=== PATIENT | female | born 1990 | race Caucasian/White ===

== ENCOUNTER 2022-01-16 14:56 | Outpatient (CLI) | payer BC, SELFPAY ==
[2022-01-16 17:14] LABS: HCG Qualitative Serum* Negative (Negative)
[2022-01-18 17:27] LABS: Follicle Stimulating Hormone 7.1 IU/L
[2022-01-19 19:02] LABS: Estradiol Premenol Female 62 pg/mL
[2022-01-19 23:41] LABS: Prolactin 5.8 ng/mL (2.8-29.2)
== END 2022-01-16 14:57 | disposition home or self-care (01) ==
PROVIDERS: PCP Family Medicine; Visit Provider Registered Nurse
DX: N91.1 Secondary amenorrhea (principal)
CPT/HCPCS: 82670; 83001; 84146; 84443; 84703

== ENCOUNTER 2022-02-12 09:16 | Outpatient (CLI) | payer BC, SELFPAY ==
[2022-02-13 23:11] LABS: Insulin, Fasting 20 uIU/mL (3-25)
== END 2022-02-12 09:17 | disposition home or self-care (01) ==
LOC: NFLDREF 09:19
PROVIDERS: PCP Family Medicine; Visit Provider Registered Nurse
DX: E28.2 Polycystic ovarian syndrome (principal)
CPT/HCPCS: 83525

== ENCOUNTER 2022-04-30 09:37 | Outpatient (CLI) | payer BC, SELFPAY ==
[2022-04-30 19:42] LABS: Chlamydia DNA Amplified* NOT DETECTED (No Detected); GC DNA Amplified* NOT DETECTED (No Detected)
== END 2022-04-30 09:38 | disposition home or self-care (01) ==
PROVIDERS: PCP Family Medicine; Visit Provider Physician Assistant
DX: R39.9 Unspecified symptoms and signs involving the genitourinary system (principal); N89.8 Other specified noninflammatory disorders of vagina
CPT/HCPCS: 87086; 87491; 87591

== ENCOUNTER 2022-09-10 09:49 | Outpatient (CLI) | payer OTHER, SELFPAY | END 2022-09-10 09:50 | disposition home or self-care (01) | LOC: NFLDREF 09:51 | PROVIDERS: PCP Family Medicine; Visit Provider Family Medicine | DX: R10.9 Unspecified abdominal pain (principal); E66.01 Morbid (severe) obesity due to excess calories | CPT/HCPCS: 80053 ==

== ENCOUNTER 2022-09-23 13:01 | Emergency (ER) | payer OTHER, SELFPAY ==
[2022-09-23 13:04] VITALS: BP 128/89; PULSE 65; RESP 16; TEMP 36.1; O2SAT 98; BMI 52.0
--- NOTE | 2022-09-23 13:22 | CRLHL7_ITS ---
For Patients: As a result of the Cures Act, medical imaging exams and procedure reports are released immediately into your electronic medical record. You may view this report before your referring provider. If you have questions, please contact your health care provider. INDICATION: Right knee pain. Trauma. TECHNIQUE: Three views of the right knee. FINDINGS: Negative. No fracture, dislocation, erosion, or intrinsic lesion. No effusion. IMPRESSION: Negative three view right knee. Dictated by Song Swartz MD @ 09/23/2022 2:37:23 PM (Electronically Signed)
--- NOTE | 2022-09-23 13:23 | ED_ITS ---
HPI - Extremity Injury (Lower) General Chief Complaint: Extremity Pain/Injury, Lower Stated Complaint: R knee pain Time Seen by Provider: 09/23/22 13:12 History of Present Illness HPI Narrative: This 32-year-old female comes in reporting pain in her right knee. She states she was playing basketball yesterday and as she was jumping up for a lay up she felt pain in her right knee while she was mid air. She states that she fell but did not injure herself from the fall. She did get up and is able to ambulate on this knee. She states that she has pain in the supra patella area. She does not report any catching or locking or indicate any signs of ligament instability. She did apply ice a couple times. She states that she did not sleep so well last night because of discomfort. Related Data Home Medications Medication Instructions Recorded Confirmed lisdexamfetamine 30 mg capsule 30 mg PO QAM 01/16/22 09/23/22 (Vyvanse) Allergies Allergy/AdvReac Type Severity Reaction Status Date / Time penicillin V Allergy Mild Hives Verified 09/07/22 14:20 Review of Systems Status of ROS: Reports: 10 or more systems reviewed and unremarkable except as noted in History and below Narrative: Constitutional: No fevers, no weight gain or loss. Eyes: No discharge. No vision changes. HENT: No congestion, no sore throat, no ear pain. Cardiovascular: No chest pain, no palpitations. Respiratory: No shortness of breath, no wheezes, no cough. Gastrointestinal: No abdominal pain, no vomiting, no diarrhea. Genitourinary: No dysuria, no hematuria. Musculoskeletal: Normal range of motion. Right knee pain as described above. Skin: No rashes, no pruritis. Neurological: No dizziness, weakness, sensory change, speech change. Endo/Heme/Allergies: No bruising or bleeding. No polydipsia. Pysch: no suicidality, no anxiety, no insomnia. All other systems reviewed and are negative. [facility] Medical History (Updated 09/23/22 @ 14:38 by Kirt Garcia MD) Abdominal pain ?R10.9 - Unspecified abdominal pain (ICD-10) Insomnia ?G47.00 - Insomnia, unspecified (ICD-10) History of pre-eclampsia (2018) ?Z87.59 - Personal history of other complications of , childbirth and the puerperium (ICD-10) Surgical History History of tubal ligation (2019) ?Z98.51 - Tubal ligation status (ICD-10) History of 2 sections ?Z98.891 - History of uterine scar from previous surgery (ICD-10) Family History Maternal Grandfather Coronary artery disease Aunt Breast cancer Paternal Grandmother Diabetes Father Liver disease Mother Mental health disorder Maternal Grandmother Mental health disorder Other Thyroid disease Social History Smoking Status: Never smoker How often do you have a drink containing alcohol: never AUDIT-C Alcohol total score: 0 Non-prescribed substance use: denies use Exam Narrative: Exam Narrative: Constitutional: Well-developed, well-nourished, no acute distress. HEENT: Normocephalic, atraumatic. Neck: Normal range of motion. Nontender. Supple. Heart: Regular. No murmurs. Normal rate. Intact distal pulses. Lungs: Clear to auscultation. No chest discomfort. No wheezes, rhonchi, or rales. Abdomen: Normal bowel sounds. Nontender. No rebound tenderness. Genitalia: Deferred. Back: No midline tenderness. Normal range of motion. Extremities: Normal range of motion. The right knee has diffuse tenderness which is more localized above the patella. There is no joint effusion or sign of deformity. Range of motion is intact without pain. Ligament exam is also showing no instability. Skin: Intact. No rash. Warm. No erythema or pallor. Neurologic: No altered sensation. No weakness. Alert and oriented. Psychiatric: No suicidality. No anxiety or depression. No insomnia. Nursing notes and vitals signs are reviewed. Const: Vital Signs, click to edit/add: Vital Signs - 24 hr 09/23/22 13:04 Temperature 96.9 F L Pulse Rate [Pulse Oximeter] 65 Respiratory Rate 16 Blood Pressure [Le ft Upper Arm] 128/89 Pulse Oximetry 98 Oxygen Delivery Me thod Room Air Course Vital Signs Vital signs: Initial Vital Signs Temperature 96.9 F L 09/23/22 13:04 Temperature Source Temporal Artery Scan 09/23/22 13:04 Pulse Rate 65 09/23/22 13:04 Respiratory Rate 16 09/23/22 13:04 Blood Pressure 128/89 09/23/22 13:04 Blood Pressure Mean 102 09/23/22 13:04 Blood Pressure Position Sitting 09/23/22 13:04 Pulse Oximetry 98 09/23/22 13:04 Oxygen Delivery Method Room Air 09/23/22 13:04 Vital Signs Temperature 96.9 F L 09/23/22 13:04 Pulse Rate 65 09/23/22 13:04 Respiratory Rate 16 09/23/22 13:04 Blood Pressure 128/89 09/23/22 13:04 Pulse Oximetry 98 09/23/22 13:04 Oxygen Delivery Method Room Air 09/23/22 13:04 Temperature 96.9 F L 09/23/22 13:04 Pulse Rate 65 09/23/22 13:04 Respiratory Rate 16 09/23/22 13:04 Blood Pressure 128/89 09/23/22 13:04 Pulse Oximetry 98 09/23/22 13:04 Oxygen Delivery Method Room Air 09/23/22 13:04 MDM - Extremity Injury (Lower) MDM Narrative Medical decision making narrative: This patient comes in with knee pain as described above. She is ambulatory but IA stated that an x-ray can give further reassurance that there is not some visible finding. An x-ray was obtained and returns with normal results by my review. Radiology report is pending. The patient may be miss understood the plan but she left after having her x-ray done. She is able to ambulate without much difficulty. She did not get discharge materials or instructions. Discharge Plan Discharge Clinical Impression: Acute knee pain Patient Disposition: Home, Self-Care Additional Instructions: Use [id number] medicines as needed and directed. Increase activity as tolerated. Follow up with MD or orthopedic clinic if not improving or worsening. Prescriptions: No Action Vyvanse 30 mg capsule 30 mg PO QAM Follow Up/Referrals: Mahsa Whyte MD [Staff Physician] - Stand Alone Forms: [employer] Info Instructions
--- NOTE | 2022-09-23 14:32 | ED.NURSE ---
pt left without telling anyone. xray results still pending
== END 2022-09-23 14:44 | disposition home or self-care (01) ==
PROVIDERS: Emergency Provider Emergency Medicine Emergency Medical Services
DX: M25.561 Pain in right knee (principal); Y93.67 Activity, basketball
CPT/HCPCS: 73562; 99283; 99284

== ENCOUNTER 2023-03-16 17:02 | Outpatient (CLI) | payer OTHER, SELFPAY ==
--- NOTE | 2023-03-16 17:30 | CRLHL7_ITS ---
For Patients: As a result of the Century Cures Act, medical imaging exams and procedure reports are released immediately into your electronic medical record. You may view this report before your referring provider. If you have questions, please contact your health care provider. HISTORY: Right knee pain after falling injury. History of surgery 15 years ago. TECHNIQUE: Routine knee protocol. FINDINGS: There are no previous MR studies for comparison. Medial compartment: Medial meniscus: There is a stated history of previous meniscus surgery. The appearance of the posterior horn and adjacent body of the medial meniscus is abnormal with prominent increased signal intensity extending through the peripheral substance vertically. These findings should be considered consistent with tearing until proven otherwise. The anterior horn is intact. Articular cartilage: Mild diffuse grade 2 chondromalacia is present. Lateral compartment: Lateral meniscus: The lateral meniscus is intact without evidence for tearing. Articular cartilage: The articular cartilage surfaces are smooth and normally maintained. Patellofemoral compartment: The articular cartilage surfaces are smooth and normally maintained. Ligaments: There is complete disruption of the anterior cruciate ligament. The posterior cruciate, medial collateral and lateral collateral ligaments are intact. Extensor mechanism: The quadriceps and patellar tendons are intact. Bones and soft tissues: No findings for transcortical or osteochondral fracture. No joint effusion or loose body is noted. The popliteus muscle belly and tendon is well as the hamstring tendons and iliotibial band are intact. IMPRESSION: 1. Complete ACL disruption. 2. Abnormal appearance to the posterior horn and adjacent body of the medial meniscus. Given the there is stated history of previous meniscal surgery, these findings probably represent a new or recurrent tearing until proven otherwise. Dictated by Stevenson Ching MD @ 03/17/2023 2:01:11 PM (Electronically Signed)
== END 2023-03-16 17:03 | disposition home or self-care (01) ==
LOC: MRI 17:02
PROVIDERS: PCP Nurse Practitioner Family; Visit Provider Nurse Practitioner Family
DX: M25.561 Pain in right knee (principal); S83.104A Unspecified dislocation of right knee, initial encounter
CPT/HCPCS: 73721

== ENCOUNTER 2023-04-09 13:36 | Outpatient (CLI) | payer OTHER, SELFPAY | END 2023-04-09 13:37 | disposition home or self-care (01) | PROVIDERS: PCP Nurse Practitioner Family; Visit Provider Nurse Practitioner Family | DX: Z01.818 Encounter for other preprocedural examination (principal) | CPT/HCPCS: 80053; 85025 ==

== ENCOUNTER 2023-04-16 13:12 | Outpatient (CLI) | payer OTHER, SELFPAY | END 2023-04-16 13:13 | disposition home or self-care (01) | LOC: NFLDUCREF 13:14 | PROVIDERS: PCP Nurse Practitioner Family; Visit Provider Nurse Practitioner | DX: R06.02 Shortness of breath (principal) | CPT/HCPCS: 83880; 84484 ==

== ENCOUNTER 2023-05-07 06:15 | Day surgery (SDC) | payer OTHER, SELFPAY ==
[2023-05-07] VITALS (17 sets, daily range): BP systolic 117–138; BP diastolic 57–107; PULSE 57–89; RESP 12–16; TEMP 36.5–36.6; O2SAT 92–100; BMI 49.6
[2023-05-07 06:31] LABS: Ur HCG Qualitative* Negative (Negative)
[2023-05-07] MEDS: LACTATED RINGERS 1000 ML 1,000 ML 100 ML IV (07:00)
[2023-05-07] MEDS: SODIUM CHLORIDE 0.9 % (FLUSH) 10 ML SYRINGE IVF (07:00)
--- NOTE | 2023-05-07 07:25 | W.PM.H&PU ---
History & Physical Update History & Physical Update H&P Reviewed and patient assessed: No changes noted
[2023-05-07] MEDS: fentaNYL 100 MCG/2 ML inj IVP (07:26)
--- NOTE | 2023-05-07 07:26 | P.ORPRC_ITS ---
Procedure Note Date of procedure: 05/07/23 Procedure: PREOPERATIVE DIAGNOSIS: 1. Right knee ACL tear 2. Right knee medial meniscus tear POSTOPERATIVE DIAGNOSIS: 1. Right knee ACL tear 2. Right knee medial meniscus tear PROCEDURE: 1. Right knee arthroscopic assisted ACL reconstruction with quadlink allograft 2. Right knee arthroscopic medial meniscus repair SURGEON: Juan Carlos Encinas M.D. [employer] APPLICATION DEVELOPER: Sean LOZA & Kendy Kilgore P.A.-C. Assistance were critical for this case to aid in patient positioning, knee manipulation, instrument exchange, and closure. ANESTHESIA: General plus regional block EBL: 10 mL TOURNIQUET: Not applicable IMPLANTS: Arthrex femoral tight rope button, Arthrex tibial ABS button; backup tibial fixation with a Arthrex 3.5 mm PEEK SwiveLock suture anchor. Arthrex FiberStitch implant x2 COMPLICATIONS: None INDICATIONS: 33-year-old female who sustained an injury to their right knee, which resulted in pain, swelling, and instability. MRI was obtained and confirmed tear of the anterior cruciate ligament with probable medial meniscus tear. Surgery was subsequently recommended to provide knee stability and address the meniscus tear. Prior to surgery, the risks and benefits of procedure, as well as expected recovery time, were discussed with patient, all questions were answered, and informed consent was obtained. FINDINGS: Examination under anesthesia revealed a grade 2B Elodia's with positive pivot shift. Knee was stable to varus and valgus stress at 0 and 30?. Posterior drawer was negative. The diagnostic arthroscopy showed complete anterior cruciate ligament disruption. There is also a vertical tear in the red red zone of the posterior horn of the medial meniscus. Lateral meniscus was intact. PCL was intact. Normal appearing cartilage in the medial, lateral, patellofemoral compartments.. DESCRIPTION OF PROCEDURE: Patient was seen preoperatively, and operative site was marked. Regional block was then performed by anesthesia staff. Patient was then brought to the operating room and placed in supine position on the OR table. Patient was given 3 g IV Ancef preoperatively for prophylaxis. The operative extremity was placed in the leg gil, and was then prepped and draped in the appropriate sterile fashion using ChloraPrep. A surgical time-out was performed confirming patient identity, surgical site, and surgical procedure. Anterolateral and anteromedial portals were injected with 1% lidocaine with epinephrine. Anterolateral portal was established. Anterior medial portal was then established after localization with a spinal needle. Diagnostic arthroscopy was performed with findings as noted above. Following the diagnostic arthroscopy, attention was directed to repair of the medial meniscus. Meniscus tear was prepped using the meniscal rasp. Meniscus repair was then performed using all inside technique using 2 fiber stitch implants. After the fibrous tissue implants had been deployed intention remnant sutures were cut removed. After 2 implants had been placed meniscus was probed and confirmed to be reduced and stable. Attention was then turned to the reconstruction of the ACL. The graft had been thawing on the back table inside the package in warm saline. Once this was properly thawed, it was prepared with the passing sutures and the femoral tight rope button. It was then placed on tension, and sized to 10 mm on the femoral side and 10 mm on the tibial side. While the graft was being prepared, the remaining ACL stump was debrided with a combination of shaver and basket forceps. Next, a small stab incision was made over the anterior lateral distal femur to allow for placement of the femoral guide. Interosseous length measured 37 mm, and the femoral tunnel was drilled in a retrograde fashion using the 10 mm FlipCutter to a depth of 30 mm. A small incision was then made over the anterior medial proximal tibia to allow for placement of the tibial guide. Tibial guide set at 55? was then placed in the appropriate position on the ti bial footprint. The tibial tunnel was then drilled in anatomic position using the 10 mm flip cutter to a depth of 30 mm. After drilling both tunnels, passing sutures were placed into the joint. Bone debris was then removed using the arthroscopic shaver. Both tunnels were visualized and confirmed to be in ideal position in the center of their respective footprints. There was a 1-2 mm back wall of the femoral tunnel. After preparing the graft and drilling tunnels, the femoral button passed into the femoral tunnel was flipped under direct visualization on the lateral cortex of the femur. The graft was passed, and approximately 15 mm of graft was seated into the femoral tunnel. Sutures were then passed through the tibial tunnel, and the graft was seated into the tibial tunnel. Knee was then brought out to full extension and femoral button was tensioned bringing 20 mm of graft into the femoral tunnel. The tibial ABS button was then secured and tensioned with the knee in full extension. The knee was then cycled multiple times, and both buttons were retentioned with knee in extension. The graft was visualized and noted be in anatomic position. Probing of the graft confirmed that it was taut and stable. There was no impingement on the ACL or femoral condyles. The knee could be brought out to full extension without graft impingement. A Elodia's test was performed and found to be stable grade 1A. Tibial sutures were tied over the button and internal brace sutures were then secured into a 3.5 mm peek SwiveLock suture anchor. Remnant sutures were cut and removed. Wound closure was performed with 3-0 Vicryl and 3-0 Monocryl to close the subcutaneous and subcuticular layers, followed by application of Dermabond. Sterile dressings were applied, and the T scope hinged knee brace was applied. The patient was awoken from anesthesia and transferred to the PACU in stable condition. PLAN: 1. Weight bear as tolerated with hinged knee brace. Keep brace locked in extension when weight-bearing until quad function returns. 2. Crutches as needed for assistance with ambulation. 3 Ice or cryo cuff and elevation for pain and swelling. 4. Acetaminophen and/or ibuprofen, and oxycodone for pain as needed. 5. Knee range of motion and quad sets/straight leg raise regularly 6. Start formal physical therapy within 1 week per the ACL reconstruction protocol. 4. Follow up in Orthopedic Clinic in 1-2 weeks for a wound check.
[2023-05-07] MEDS: MIDAZOLAM HCL 1 MG/ML inj IVP (07:27)
--- NOTE | 2023-05-07 07:35 | SUR.PREOP ---
TIME?OUT:?0727 PT/RN/MDA?VERIFICATION?OF?SURGICAL?SITE,?PROCEDURE,?AND?CONSENT OBTAINED?PRIOR?TO?INVASIVE?PROCEDURE.
[2023-05-07] MEDS: BUPIVACAINE 0.25 %/EPI 1:200K 30 ml INJECTION (08:06)
--- NOTE | 2023-05-07 10:11 | W.ANESCHARGE ---
Anesthesia Charges Start Date/Time Anesthesia Start Date: 05/07/23 Anesthesia Start Time: 07:40 Stop Date/Time Anesthesia Stop Date: 05/07/23 Anesthesia Stop Time: 10:06
--- NOTE | 2023-05-07 10:41 | P.NB_ITS ---
Nerve Block Nerve Block Time Seen by Provider: 07:25 Date Seen: 05/07/23 Type of block requested by surgeon for post-operative analgesia: femoral Side: right Time out performed: Yes Verification of patient name: Yes Verification of date of : Yes Site marking: site marked Name of person performing procedure: Catracho Farrell Continuous monitoring Was continuous monitoring of O2 sat, B/P, air sampling and monitoring, recorded every 15 minutes?: Yes Procedure Checklist: sterile prep, needles and gloves Ultrasound guided. Images saved: Yes Medications given in 5ml increments after negative aspiration: Ropivicaine %: 0.5 mL: 20 Needle gauge: 20 Decadron (mg): 10 Precedex (mcg): 25 Patient tolerated procedure well: Yes Additional comments: Injected in 5 ml increments after negative aspiration Block Charges Block Charge (with Pro Fee): Femoral Nerve Use of Ultrasound Machine for Block: Yes- US Guidance/pain block
--- NOTE | 2023-05-07 10:42 | W.PM.NB ---
Nerve Block Nerve Block Time Seen by Provider: 07:25 Date Seen: 05/07/23 Type of block requested by surgeon for post-operative analgesia: geniculars Side: right Time out performed: Yes Verification of patient name: Yes Verification of date of : Yes Site marking: site marked Name of person performing procedure: Catracho Farrell Continuous monitoring Was continuous monitoring of O2 sat, B/P, post framer, recorded every 15 minutes?: Yes Procedure Checklist: sterile prep, needles and gloves Ultrasound guided. Images saved: No Medications given in 5ml increments after negative aspiration: Ropivicaine %: 0.5 mL: 12 Needle gauge: 25 Patient tolerated procedure well: Yes Additional comments: Injected in 4ml increments after negative aspiration Block Charges Block Charge (with Pro Fee): Genicular Nerve Block Use of Ultrasound Machine for Block: No
== END 2023-05-07 12:25 | disposition home or self-care (01) ==
PROVIDERS: Anesthesiology; PCP Nurse Practitioner Family; Visit Provider Orthopaedic Surgery
PROC: (CPT 27428; principal; 2023-05-07 07:15)
DX: S83.511A Sprain of anterior cruciate ligament of right knee, initial encounter (principal); S83.241A Other tear of medial meniscus, current injury, right knee, initial encounter; G89.18 Other acute postprocedural pain
CPT/HCPCS: 29888; 29881; 01320; 64447; 64454; 76942; 81025; 97116; 97161; C1713; J0330; J1100; J1630; J1885; J2250; J2405; J2704; J2795; J3010; J3490; J7120; L1833

== ENCOUNTER 2023-06-10 19:00 | Emergency (ER) | payer OTHER, SELFPAY ==
[2023-06-10 19:03] VITALS: BP 128/81; PULSE 69; RESP 18; TEMP 36.4; O2SAT 100; BMI 48.4
--- NOTE | 2023-06-10 19:24 | XR_ITS ---
Patient: REINA MUNOZ Facility:?[facility] Patient ID:?[id number] Site Patient ID:?[id number]. Site :?[id number] Study:?XRay-Chest 2 VIEWS-06/10/2023 8:09:14 PM Ordering Physician:GABRIEL Final Report: INDICATION: Chest pain. COMPARISON: 04/16/2023. Technique chest. FINDINGS: Lungs are clear. No pleural effusions. No pneumothorax. Normal cardiomediastinal silhouette. No osseous abnormalities. Dictated by Michael Hernandez MD @ 06/10/2023 8:20:38 PM Signed by:?Michael Hernandez MD @06/10/2023 8:20:38 PM (Electronic Signature)
--- NOTE | 2023-06-10 19:30 | ED.CHESTPAIN ---
HPI - Chest Pain General Date Seen: 06/10/23 Chief Complaint: Chest Pain Stated Complaint: Chest, L arm pain Time Seen by Provider: 06/10/23 19:01 Source: patient Mode of arrival: ambulatory Limitations: no limitations History of Present Illness HPI narrative: Patient is a 31-year-old female with no pertinent medical problems presenting to the emergency department for left arm and chest pain. She states over the past few days she has been having left arm pain along with left upper chest pain. She has also been having intermittent shortness of breath. Is not currently feeling short of breath. Has been dealing with enlarged tonsils and ear pain for over a month now has been getting evaluated outpatient this does not seem worse than normal. She recently had an ACL/MCL repair about 4 weeks ago. She has been feeling increased fatigue today. Denies having pain like this before. No previous history of blood clots. No history of heart disease. Does note worsening pain with movement of her left arm. Has been trying heat packs, Tylenol, ibuprofen home for pain. Does not remember injuring herself. Related Data Home Medications Medication Instructions Recorded Confirmed lisdexamfetamine 30 mg capsule 30 mg PO QAM 05/05/23 06/10/23 polyethylene glycol 3350 17 4 g PO QDAY PRN 05/05/23 05/11/23 gram/dose oral powder (Miralax) Previous Rx's Medication Instructions Recorded metformin 500 mg tablet 500 mg PO BIDWMEAL 90 days #180 01/01/23 tabs omeprazole 20 mg capsule,delayed 20 mg PO QDAY #60 caps 04/26/23 release acetaminophen 500 mg capsule 500 - 1,000 mg (1 - 2 x 500 mg) PO 05/07/23 Q6H PRN pain #60 caps Allergies Allergy/AdvReac Type Severity Reaction Status Date / Time penicillin V Allergy Mild Hives Verified 05/11/23 10:11 Review of Systems Status of ROS Reports: 10 or more systems reviewed and unremarkable except as noted in History and below [facility] Medical History (Updated 06/10/23 @ 20:40 by Arsh Melchor DO) GERD (gastroesophageal reflux disease) ?K21.9 - Gastro-esophageal reflux disease without esophagitis (ICD-10) ADHD ?F90.9 - Attention-deficit hyperactivity disorder, unspecified type (ICD-10) Morbid obesity with body mass index (BMI) of 50.0 to 59.9 in adult ?E66.01 - Morbid (severe) obesity due to excess calories (ICD-10) ?Z68.43 - Body mass index [BMI] 50.0-59.9, adult (ICD-10) Anxiety ?F41.9 - Anxiety disorder, unspecified (ICD-10) Insomnia ?G47.00 - Insomnia, unspecified (ICD-10) History of pre-eclampsia (2018) ?Z87.59 - Personal history of other complications of , childbirth and the puerperium (ICD-10) Surgical History (Updated 05/11/23 @ 10:40 by Patricia De León ~ RN, RN) History of arthroscopy of right knee (05/07/23) ?Z98.890 - Other specified postprocedural states (ICD-10) Hx of umbilical hernia repair ?Z98.890 - Other specified postprocedural states (ICD-10) ?Z87.19 - Personal history of other diseases of the digestive system (ICD-10) History of cholecystectomy ?Z90.49 - Acquired absence of other specified parts of digestive tract (ICD-10) History of tubal ligation (2019) ?Z98.51 - Tubal ligation status (ICD-10) History of 2 sections ?Z98.891 - History of uterine scar from previous surgery (ICD-10) Family History Maternal Grandfather Coronary artery disease Dysfunctional gallbladder Stomach ulcer Aunt Breast cancer Paternal Grandmother Diabetes Father Liver disease Mother Mental health disorder Muscle disease Dysfunctional gallbladder Maternal Grandmother Mental health disorder Endometrial cancer Social History (Updated 04/09/23 @ 13:29 by Jnaet Sue APRN, [employer]) Narrative: . 2 children. 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 Regular exercise, 6x/week, when able. Non-smoker. Alcohol, none. No illicit drug use. Smoking Status: Never smoker How often do you have a drink containing alcohol: never How often do you have six or more drinks on one occasion: Never AUDIT-C Alcohol total score: 0 Non-prescribed substance use: marijuana (any form) Non-prescribed substance use details: cbd gummy Caffeine: Yes Are you using contraception or practicing any form of control: No Exam Narrative Exam Narrative: Const: Well-nourished, Well-developed, in mild distress Eyes: PERRL, no conjunctival injection, and symmetrical lids HENT: Atraumatic external nose and ears. Moist mucous membranes. Neck: Symmetric, trachea midline, No thyromegaly. CVS: RRR, No murmurs or gallops. Peripheral pulses 2+ and equal in all extremities RESP: Unlabored respiratory effort. Clear to auscultation bilaterally. GI: Nontender/Nondistended, No rebound or guarding. MSK:Extremities w/o deformity, Normal Active ROM, tenderness to palpation left upper chest Skin: Warm, Dry. No rashes or lesions. Neuro: Normal Muscle tone, No focal neurological deficits. Psych: Awake, Alert, & Oriented x3. Appropriate mood and affect. Const Vital Signs, click to edit/add: Vital Signs - 24 hr 06/10/23 19:03 Temperature 97.6 F Pulse Rate [Left Pulse Oximeter] 69 Respiratory Rate 18 Blood Pressure [Right Upper Arm] 128/81 Pulse Oximetry 100 Oxygen Delivery Method Room Air Course Vital Signs Vital signs: Initial Vital Signs Temperature 97.6 F 06/10/23 19:03 Temperature Source Temporal Artery Scan 06/10/23 19:03 Pulse Rate 69 06/10/23 19:03 Respiratory Rate 18 06/10/23 19:03 Blood Pressure 128/81 06/10/23 19:03 Blood Pressure Mean 96 06/10/23 19:03 Blood Pressure Position Sitting 06/10/23 19:03 Pulse Oximetry 100 06/10/23 19:03 Oxygen Delivery Method Room Air 06/10/23 19:03 Vital Signs Temperature 97.6 F 06/10/23 19:03 Pulse Rate 69 06/10/23 19:03 Respiratory Rate 18 06/10/23 19:03 Blood Pressure 128/81 06/10/23 19:03 Pulse Oximetry 100 06/10/23 19:03 Oxygen Delivery Method Room Air 06/10/23 19:03 Temperature 97.6 F 06/10/23 19:03 Pulse Rate 69 06/10/23 19:03 Respiratory Rate 18 06/10/23 19:03 Blood Pressure 128/81 06/10/23 19:03 Pulse Oximetry 100 06/10/23 19:03 Oxygen Delivery Method Room Air 06/10/23 19:03 MDM - Chest Pain MDM Narrative Medical decision making narrative: Patient is a 31-year-old female presenting for chest pain, shortness of breath, arm pain. She is tender left upper chest and pain is worse with movements this seems most likely musculoskeletal. With the recent surgery though she cannot be perced out. She is not requesting any pain medication at this time. CBC, BMP, test, chest x-ray, D-dimer all ordered. Lab work returned showing no concerning abnormalities. D-dimer within normal limits and PE is unlikely. EKG and troponins showed no concerning abnormalities. Since pain has been going on for several days a not believe is necessary to repeat the troponin. She is otherwise doing well at this time and again considering pain worsening with movement and point tenderness this is most likely muscle strain. She will be discharged home. She is agreeable to this plan. Lab Data Labs: Lab Results 06/10/23 06/10/23 Range/Units 19:24 19:40 WBC 8.26 (4.50-11.00) K/uL RBC 4.33 (4.00-5.20) m/uL Hgb 12.6 (12.0-16.0) gm/dL Hct 38.2 (33.0-51.0) % MCV 88 (80-100) fL MCH 29 (26-34) pg MCHC 33 (32-36) gm/dL RDW Coeff of Hi 12.7 (11.5-15.5) % Plt Count 270 (140-440) K/uL Neut % (Auto) 59.8 (42.0-72.0) % Lymph % (Auto) 31.6 (20-44) % [place] % (Auto) 7.0 (0.0-11.0) % Eos % (Auto) 1.3 (0.0-7.0) % Baso % (Auto) 0.2 (0.0-3.0) % Neut # (Auto) 4.93 (1.7-7.0) K/uL Lymph # (Auto) 2.61 (0.90-2.90) K/uL [place] # (Auto) 0.60 (0.00-0.90) K/UL Eos # (Auto) 0.11 (0.00-0.50) K/uL Baso # (Auto) 0.02 (0.00-0.30) K/uL Abs Immat Gran (auto) 0.01 (0.00-0.30) K/uL Imm/Tot Granulo (auto) 0.1 % D-Dimer Quant (PE/DVT) 0.26 (0.00-0.50) ug/ml Sodium 139 (135-149) mmol/L Potassium 3.6 (3.6-5.1) mmol/L Chloride 106 (96-114) mmol/L Carbon Dioxide 26 (20-32) mmol/L Anion Gap 7 (7-15) mEq/L BUN 8 (5-24) mg/dL Creatinine 0.7 (0.5-1.5) mg/dL Estimated Creat Clear 108.01 Estimated GFR 118 ml/min Glucose 99 (60-115) mg/dL Calcium 9.3 (8.4-10.6) mg/dL HCG, Qual Negative (Negative) POC Troponin I 0.00 L (0.01-0.04) ng/ml Imaging Data Chest x-ray: Radiologist's impression: Lungs are clear. No pleural effusions. No pneumothorax. Normal cardiomediastinal silhouette. No osseous abnormalities. Dictated by Michael Hernandez MD @ 06/10/2023 8:20:38 PM ECG Data Attestation: I personally reviewed and interpreted this ECG as follows: Prior ECG tracings: available for review Interpretation: Normal sinus rhythm with a rate of 64 beats per minute, normal intervals, normal axis, no ST or T-wave abnormalities. Appears similar to previous EKG on file Discharge Plan Discharge Clinical Impression: Chest wall muscle strain Qualifiers: Encounter type: initial encounter Qualified Code(s): S29.011A - Strain of muscle and tendon of front wall of thorax, initial encounter Patient Disposition: Home, Self-Care Condition: Stable Instructions: Chest Wall Pain (ED) Additional Instructions: Your pain appears to be muscular in origin. Recommend Tylenol and ibuprofen for pain and use ice as needed. Return to the emergency department for new or worsening symptoms Prescriptions: No Action omeprazole 20 mg capsule,delayed release(DR/EC) 20 mg PO QDAY Qty: 60 0RF lisdexamfetamine 30 mg capsule 30 mg PO QAM polyethylene glycol 3350 [Miralax] 17 gram/dose powder 4 g PO QDAY PRN metformin 500 mg tablet 500 mg PO BIDWMEAL 90 Days Qty: 180 2RF acetaminophen 500 mg capsule 500 - 1,000 mg PO Q6H PRN (Reason: pain) Qty: 60 0RF Follow Up/Referrals: Janet Sue APRN, [employer] [Primary Care Provider] - Stand Alone Forms: MyHealth Info Instructions
[2023-06-10 19:52] LABS: Basophils Absolute Auto 0.02 K/uL (0.00-0.30); Basophils Percent Auto 0.2 % (0.0-3.0); Eosinophils Absolute Auto 0.11 K/uL (0.00-0.50); Eosinophils Percent Auto 1.3 % (0.0-7.0); Hematocrit 38.2 % (33.0-51.0); Hemoglobin* 12.6 gm/dL (12.0-16.0); Immature Granulocytes Abs Auto 0.01 K/uL (0.00-0.30); Immature Granulocytes Pct Auto 0.1 %; Lymphocytes Absolute Auto 2.61 K/uL (0.90-2.90); Lymphocytes Percent Auto 31.6 % (20-44); Mean Corpuscular HGB Conc 33 gm/dL (32-36); Mean Corpuscular Hemoglobin 29 pg (26-34); Mean Corpuscular Volume 88 fL (80-100); Neutrophils Absolute Auto 4.93 K/uL (1.7-7.0); Neutrophils Percent Auto 59.8 % (42.0-72.0); Platelet Count* 270 K/uL (140-440); RDW Coefficient of Variation % 12.7 % (11.5-15.5); Red Blood Count 4.33 m/uL (4.00-5.20); White Blood Count* 8.26 K/uL (4.50-11.00)
[2023-06-10 19:53] LABS: Slide Review Reflex No
[2023-06-10 20:07] LABS: Chloride* 106 mmol/L (96-114); Potassium* 3.6 mmol/L (3.6-5.1); Sodium* 139 mmol/L (135-149)
[2023-06-10 20:09] LABS: Creatinine* 0.7 mg/dL (0.5-1.5); Est. Creatinine Clearance* 108.01; Estimated Glomerular Filt Rate 118 ml/min
[2023-06-10 20:10] LABS: Anion Gap 7 mEq/L (7-15); Blood Urea Nitrogen* 8 mg/dL (5-24); Calcium* 9.3 mg/dL (8.4-10.6); Carbon Dioxide* 26 mmol/L (20-32); Glucose* 99 mg/dL (60-115)
[2023-06-10 20:24] LABS: D Dimer Quantitative* 0.26 ug/ml (0.00-0.50)
[2023-06-10 20:26] LABS: HCG Qualitative Serum* Negative (Negative)
== END 2023-06-10 20:54 | disposition home or self-care (01) ==
PROVIDERS: Emergency Provider Student in an Organized Health Care Education/Training Program; PCP Nurse Practitioner Family
DX: S29.011A Strain of muscle and tendon of front wall of thorax, initial encounter (principal)
CPT/HCPCS: 36415; 71046; 80048; 84484; 84703; 85025; 85379; 93005; 99283; 99284

== ENCOUNTER 2023-06-14 10:33 | Outpatient (CLI) | payer OTHER, SELFPAY ==
--- NOTE | 2023-06-14 10:45 | MM_ITS ---
Patient: REINA MUNOZ Facility:?[facility] Patient ID:?[id number] Site Patient ID:?[id number] Site :?[id number] Study:?XRay-Breast Bilateral 3D W/CAD-06/14/2023 11:30:27 AM Ordering Physician:Sydnie Final Report: DIGITAL DIAGNOSTIC BILATERAL MAMMOGRAM USING TOMOSYNTHESIS AND COMPUTER-AIDED DETECTION CLINICAL HISTORY: BILATERAL breast lumps and pain. COMPARISON: 05/08/2021. TECHNIQUE: Digital BILATERAL mammogram in four projections. Tomosynthesis and CAD utilized. BREAST COMPOSITION: The breasts are almost entirely fatty. FINDINGS: 3D CC/MLO bilateral mammogram images submitted. Benign calcifications are present bilaterally along with benign intramammary lymph nodes. No suspicious masses or architectural distortion. No adenopathy. IMPRESSION: No suspicious findings are present. No evidence of malignancy. RECOMMENDATIONS: Age-appropriate screening mammography. Clinical follow-up. Results and recommendations discussed with the patient. BI-RADS Category 2: Benign A lay language report of this examination will be provided to the patient. Dictated by Donovan Landin MD @ 06/14/2023 11:32:35 AM jj/Dictated by: Donovan Landin MD @ 06/14/2023 11:32:00 AM Signed by:?Donovan Landin MD @06/14/2023 1:10:25 PM (Electronic Signature)
== END 2023-06-14 10:34 | disposition home or self-care (01) ==
LOC: MAMMO 10:33
PROVIDERS: PCP Nurse Practitioner Family; Visit Provider Registered Nurse
DX: N63.10 Unspecified lump in the right breast, unspecified quadrant (principal); N63.20 Unspecified lump in the left breast, unspecified quadrant; N64.4 Mastodynia
CPT/HCPCS: 77066; G0279

== ENCOUNTER 2023-06-29 09:20 | Outpatient (CLI) | payer OTHER, SELFPAY | END 2023-06-29 09:21 | disposition home or self-care (01) | LOC: NFLDREF 07-02 09:36 | PROVIDERS: PCP Nurse Practitioner Family; Referring Provider Nurse Practitioner Family; Visit Provider Registered Nurse | DX: N91.2 Amenorrhea, unspecified (principal); E66.01 Morbid (severe) obesity due to excess calories; Z13.6 Encounter for screening for cardiovascular disorders; Z13.9 Encounter for screening, unspecified | CPT/HCPCS: 80061; 84443 ==

== ENCOUNTER 2023-07-01 16:04 | Emergency (ER) | payer OTHER, SELFPAY ==
[2023-07-01 16:11] VITALS: BP 131/82; PULSE 63; RESP 16; TEMP 36.2; O2SAT 100; BMI 48.4
--- NOTE | 2023-07-01 16:21 | ED_ITS ---
HPI - General Adult General Date Seen: 07/01/23 Chief complaint: Abdominal Pain Stated complaint: throat pain, abdominal pain Time Seen by Provider: 07/01/23 16:19 History of Present Illness HPI narrative: 33-year-old female with history of obesity, GERD, goes to the called, umbilical hernia, polycystic ovarian syndrome, Review of medical record indicates that She was seen in the ER about 3 weeks ago for left chest and arm pain with a negative workup during that visit. She was seen in the clinic 2 days ago for right knee pain. She had had right knee surgery about 8 weeks ago with ACL repair and then twisted her knee a few days prior to her visit. She presents to the ER today with 2 separate issues. The 1st issue she mentions is that for the past few months, possibly since last February she has been having episodes where she gets discomfort located in the back of her nose and into her ears and jaw and also in the back of her throat. Sometimes it feels like burning and sometimes it feels like pills are getting stuck in the back of her jaw. It has been getting worse lately in the past week or so. No fever. No nasal congestion. No cough. No facial pain. No known sick exposures. She was looking at her tonsils in the mirror her earlier and noticed that there were a bunch of pink bumps on the base and back of her tongue. The more pressing issue that brought her to the ER as that she is having abdominal pain. She notes that for the past 6 weeks or so she has been struggling with nausea and epigastric discomfort. She was put on Prilosec by her PCP and feels like that is helping quite a bit with her nausea but not completely resolving it. For the past few days or or week or so she has had a new pain located in her left side and left lower quadrant. It comes from time to time and is quite sharp and intense. It is also tender to palpation. Along with this she has had diarrhea with multiple episodes of watery stool/junky stool per day. No bloody stool. No fever. No known injury. No rash. No pain on the right side. No radiation to the back or flank. She says she might be having a little bit of mild discomfort with urination. Related Data Home Medications Medication Instructions Recorded Confirmed lisdexamfetamine 30 mg capsule 30 mg PO QAM 05/05/23 06/29/23 polyethylene glycol 3350 17 4 g PO QDAY PRN 05/05/23 06/29/23 gram/dose oral powder (Miralax) Previous Rx's Medication Instructions Recorded metformin 500 mg tablet 500 mg PO BIDWMEAL 90 days #180 01/01/23 tabs omeprazole 20 mg capsule,delayed 20 mg PO QDAY #60 caps 04/26/23 release levonorgestrel-ethinyl estradiol 1 tab PO QDAY #28 tabs 06/18/23 0.1 mg-20 mcg tablet (Aviane) medroxyprogesterone 10 mg tablet 10 mg PO QDAY #10 tabs 06/18/23 (Provera) Allergies Allergy/AdvReac Type Severity Reaction Status Date / Time penicillin V Allergy Mild Hives Verified 07/01/23 17:04 [facility] Medical History (Updated 07/01/23 @ 19:15 by Mao Goyal MD) Pharyngitis ?J02.9 - Acute pharyngitis, unspecified (ICD-10) Breast lump ?N63.0 - Unspecified lump in unspecified breast (ICD-10) Peripheral tear of medial meniscus of right knee ?S83.221A - Peripheral tear of medial meniscus, current injury, right knee, initial encounter (ICD-10) Complete tear of right ACL ?S83.511A - Sprain of anterior cruciate ligament of right knee, initial encounter (ICD-10) GERD (gastroesophageal reflux disease) ?K21.9 - Gastro-esophageal reflux disease without esophagitis (ICD-10) ADHD ?F90.9 - Attention-deficit hyperactivity disorder, unspecified type (ICD-10) Anxiety ?F41.9 - Anxiety disorder, unspecified (ICD-10) Insomnia ?G47.00 - Insomnia, unspecified (ICD-10) History of pre-eclampsia (2018) ?Z87.59 - Personal history of other complications of , childbirth and the puerperium (ICD-10) Surgical History (Updated 06/17/23 @ 14:28 by Gaviota Villarreal CNP) S/P medial meniscus repair of right knee ?Z98.890 - Other specified postprocedural states (ICD-10) S/P ACL reconstruction ?Z98.890 - Other specified postprocedural states (ICD-10) History of arthroscopy of right knee (05/07/23) ?Z98.890 - Other specified postprocedural states (ICD-10) Hx of umbilical hernia repair ?Z98.890 - Other specified postprocedural states (ICD-10) ?Z87.19 - Personal history of other diseases of the digestive system (ICD-10) History of cholecystectomy ?Z90.49 - Acquired absence of other specified parts of digestive tract (ICD- 10) History of tubal ligation (2019) ?Z98.51 - Tubal ligation status (ICD-10) History of 2 sections ?Z98.891 - History of uterine scar from previous surgery (ICD-10) Family History (Updated 06/17/23 @ 14:33 by Gaviota Villarreal, TRACK LABORER) Maternal Grandfather Coronary artery disease Dysfunctional gallbladder Stomach ulcer Aunt Breast cancer Paternal Grandmother Diabetes Father Liver disease High blood pressure Mother Mental health disorder Muscle disease Dysfunctional gallbladder Maternal Grandmother Mental health disorder Endometrial cancer Other Colon cancer Thyroid disease Uterine cancer Social History (Updated 04/09/23 @ 13:29 by Janet Sue APRN, TRACK LABORER) Narrative: . 2 children. 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 Regular exercise, 6x/week, when able. Non-smoker. Alcohol, none. No illicit drug use. Smoking Status: Never smoker Do you use any of these nicotine containing products: None Second hand tobacco smoke exposure: No How often do you have a drink containing alcohol: never How often do you have six or more drinks on one occasion: Never AUDIT-C Alcohol total score: 0 Non-prescribed substance use: marijuana (any form) Non-prescribed substance use details: cbd gummy Caffeine: Yes Little interest or pleasure in doing things: several days Feeling down, depressed, or hopeless: not at all Are you using contraception or practicing any form of control: No service: No Exam Narrative: Exam Narrative: Constitutional: Appears well-developed and well-nourished. Alert. Conversant. Non toxic. HENT: Head: Atraumatic. Nose: Nose normal. Right ear: Mastoid, pinna, canal TM are normal. Left ear: Mastoid, pinna, canal, TM are normal. Mouth/Throat: Oral mucosa is clear and moist. no trismus. Pharynx normal. Tonsils symmetric. No tonsillar enlargement, erythema, or exudate. She does have visible circumvallate papillae on the back of her tongue which are not inflamed. Eyes: Conjunctivae normal. EOM normal. Pupils equal, round, and reactive to light. No scleral icterus. Neck: Normal range of motion. Neck supple. No tracheal deviation present. Cardiovascular: Normal rate, regular rhythm. No gallop. No friction rub. No murmur heard. Pulmonary/Chest: Effort normal. No stridor. No respiratory distress. No wheezes. No rales. No rhonchi . No tenderness. Abdominal: Soft. Bowel sounds normal. Protuberant due to body habitus but No distension. No mass. Left mid and left lower quadrant tenderness. No rebound. No guarding. No CVA tenderness Musculoskeletal: RUE: Normal range of motion. No tenderness. No deformity LUE: Normal range of motion. No tenderness. No deformity RLE: Normal range of motion. No edema. No tenderness. No deformity LLE: Normal range of motion. No edema. No tenderness. No deformity Neurological: Alert and oriented to person, place, and time. Normal strength. CN II-VII intact. No sensory deficit. GCS eye subscore is 4. GCS verbal subscore is 5. GCS motor subscore is 6. Normal coordination Skin: Skin is warm and dry. No rash noted. No pallor. Normal capillary refill. Psychiatric: Normal mood. Normal affect. Const: Vital Signs, click to edit/add: Vital Signs - 24 hr 07/01/23 16:11 07/01/23 19:14 Temperature 97.1 F L Pulse Rate [Pulse Oximeter] 63 67 Respiratory Rate 16 18 Blood Pressure [Ri ght Upper Arm] 131/82 135/99 H Pulse Oximetry 100 Oxygen Delivery Me thod Room Air Course Course ED Course: Recheck-feeling better. Requesting water. Vital Signs Vital signs: Initial Vital Signs Temperature 97.1 F L 07/01/23 16:11 Temperature Source Temporal Artery Scan 07/01/23 16:11 Pulse Rate 63 07/01/23 16:11 Respiratory Rate 16 07/01/23 16:11 Blood Pressure 131/82 07/01/23 16:11 Blood Pressure Mean 98 07/01/23 16:11 Blood Pressure Position Sitting 07/01/23 16:11 Pulse Oximetry 100 07/01/23 16:11 Oxygen Delivery Method Room Air 07/01/23 16:11 Vital Signs Temperature 97.1 F L 07/01/23 16:11 Pulse Rate 63 07/01/23 16:11 Respiratory Rate 16 07/01/23 16:11 Blood Pressure 131/82 07/01/23 16:11 Pulse Oximetry 100 07/01/23 16:11 Oxygen Delivery Method Room Air 07/01/23 16:11 Temperature 97.1 F L 07/01/23 16:11 Pulse Rate 67 07/01/23 19:14 Respiratory Rate 18 07/01/23 19:14 Blood Pressure 135/99 H 07/01/23 19:14 Pulse Oximetry 100 07/01/23 16:11 Oxygen Delivery Method Room Air 07/01/23 16:11 Medical Decision Making MDM Narrative Medical decision making narrative: Presented to the Emergency Department with several concerns including left-sided abdominal pain, diarrhea for the past few days also some dysphagia and pain in the back of her throat ongoing for the past few months, also some discomfort in her ears. In terms of her abdominal pain, the differential diagnosis of abdominal pain includes: Bowel Obstruction, Ulcer, Ischemia, Diverticulitis, UTI, kidney stone, Enteritis/Colitis, functional pain, pain from viral GI illness, amongst many other etiologies. Laboratory testing does not reveal a cause for the patient's pain. Imaging is noted to be normal. The exact etiology of the abdominal pain is not clear at this time. No life threatening cause or need for emergent surgery or hospital admission is detected today. The patient was advised that if symptoms do not completely resolve within another 12-24 hours re-evaluation with primary care or return to the ED is indicated. In terms of her swelling difficulty suspect she might have GERD or possibly other nasal pharyngeal inflammation or eustachian tube dysfunction. It turns out the patient was already scheduled for an EEG to D tomorrow but decided to cancel it because of her symptoms. Encouraged her to continue on her PPI and follow-up with her doctor to get her EGD reschedule for further evaluation. At this point no evidence for esophageal obstruction, no evidence for perforation or Boerhaave syndrome. I do not think she needs imaging of her chest or neck. The patient understands that if they worsen, they should return to the ER right away. I discussed the uncertainty about the diagnosis and answered the patient's questions. Abdominal pain return precautions discussed. Lab Data Labs: Lab Results 07/01/23 07/01/23 07/01/23 Range/Units 16:14 16:54 16:54 WBC 6.89 (4.50-11.00) K/uL RBC 4.66 (4.00-5.20) m/uL Hgb 13.5 (12.0-16.0) gm/dL Hct 41.5 (33.0-51.0) % MCV 89 (80-100) fL MCH 29 (26-34) pg MCHC 33 (32-36) gm/dL RDW Coeff of Hi 12.6 (11.5-15.5) % Plt Count 313 (140-440) K/uL Neut % (Auto) 56.2 (42.0-72.0) % Lymph % (Auto) 35.7 (20-44) % [place] % (Auto) 6.0 (0.0-11.0) % Eos % (Auto) 1.7 (0.0-7.0) % Baso % (Auto) 0.4 (0.0-3.0) % Neut # (Auto) 3.87 (1.7-7.0) K/uL Lymph # (Auto) 2.46 (0.90-2.90) K/uL [place] # (Auto) 0.40 (0.00-0.90) K/UL Eos # (Auto) 0.12 (0.00-0.50) K/uL Baso # (Auto) 0.03 (0.00-0.30) K/uL Abs Immat Gran (auto) 0.00 (0.00-0.30) K/uL Imm/Tot Granulo (auto) 0.0 % Sodium 140 (135-149) mmol/L Potassium 4.2 (3.6-5.1) mmol/L Chloride 105 (96-114) mmol/L Carbon Dioxide 29 (20-32) mmol/L Anion Gap 6 L (7-15) mEq/L BUN 8 (5-24) mg/dL Creatinine 0.7 (0.5-1.5) mg/dL Estimated Creat Clear 108.01 Estimated GFR 118 ml/min Glucose 100 (60-115) mg/dL Calcium 9.6 (8.4-10.6) mg/dL Total Bilirubin 0.6 (0.1-1.5) mg/dL AST 35 (12-35) U/L ALT 43 H (4-35) U/L Alkaline Phosphatase 52 (40-150) U/L Total Protein 8.1 (6.0-8.3) g/dL Albumin 4.5 (3.3-5.0) g/dL Lipase 140 Cancelled (23-300) U/L Urine Color Yellow (Yellow) Urine Appearance Clear (Clear) Urine pH 6.5 (5.0-8.5) Ur Specific [place] 1.020 (1.000-1.030) Urine Protein Negative (Negative) Urine Glucose (UA) Negative (Negative) Urine Ketones Negative (Negative) Urine Blood Trace-lysed A (Negative) Urine Nitrite Negative (Negative) Urine Bilirubin Negative (Negative) Urine Urobilinogen 0.2 (0.2-1.0) Ur Leukocyte Esterase Trace A (Negative) Urine RBC 0-2 (0-2) Urine WBC 0-2 (0-5) Ur Squamous Epith Cells Few (None-Few) Urine Bacteria Few A (None) Group A Strep DNA NOT DETECTED (Not Detectd) Imaging Data CT scan - abdomen: Attestation: I have reviewed the pertinent imaging results. Radiologist's impression: Impression: No acute intra-abdominal findings or CT findings to explain given history. Discharge Plan Discharge Clinical Impression: Diarrhea, Abdominal pain Patient Disposition: Home, Self-Care Condition: Stable Instructions: Acute Diarrhea (ED), Abdominal Pain (ED) Additional Instructions: As we discussed, please come back to the ER if you have worsening symptoms especially worsening pain, fever, bloody vomiting, uncontrolled vomiting or dehydration, bloody or mucousy stool, or if you have any problems. Please continue on your current stomach acid medicine your other current medications. Follow-up with your regular doctor to recheck tomorrow or by Wednesday. He should ask your regular doctor to get your EGD rescheduled. Prescriptions: No Action omeprazole 20 mg capsule,delayed release(DR/EC) 20 mg PO QDAY Qty: 60 0RF lisdexamfetamine 30 mg capsule 30 mg PO QAM polyethylene glycol 3350 [Miralax] 17 gram/dose powder 4 g PO QDAY PRN metformin 500 mg tablet 500 mg PO BIDWMEAL 90 Days Qty: 180 2RF medroxyprogesterone [Provera] 10 mg tablet 10 mg PO QDAY Qty: 10 6RF levonorgestrel-ethinyl estrad [Aviane] 0.1-20 mg-mcg tablet 1 tab PO QDAY Qty: 28 0RF Follow Up/Referrals: Janet Sue, CLOTH SHRINKING SUPERVISOR, TRACK LABORER [Primary Care Provider] - Stand Alone Forms: [facility] Info Instructions
[2023-07-01 16:25] LABS: Bilirubin Urine Negative (Negative); Blood Urine Trace-lysed (Negative); Color Urine Yellow (Yellow); Glucose Urine Negative (Negative); Ketones Urine Negative (Negative); Leukocyte Esterase Urine Trace (Negative); Nitrite Urine Negative (Negative); Protein Urine Negative (Negative); Urobilinogen Urine 0.2 (0.2-1.0); pH Urine 6.5 (5.0-8.5)
[2023-07-01 16:28] LABS: Appearance Urine Clear (Clear)
--- NOTE | 2023-07-01 16:44 | CT_ITS ---
Patient: REINA MUNOZ Facility:?[facility] Patient ID:?[id number] Site Patient ID:?[id number]. Site :?[id number] Study:?CT-Abdomen/Pelvis W/ 147CC ISOVUE 370-07/01/2023 5:09:14 PM Ordering Physician:SIS Final Report: Indication: Left abdominal pain and diarrhea Technique: CT abdomen and pelvis with intravenous contrast, 147 cc of Isovue 370. Please note that all CT scans at this facility use dose modulation, iterative reconstruction, and/or weight-based dosing when appropriate to reduce radiation dose to as low as reasonably achievable. Comparison: None. Findings: The lower chest is clear. The gallbladder is surgically absent. The liver, spleen, adrenal glands, pancreas and kidneys are normal. The urinary bladder is empty/inadequately evaluated. There are no pelvic cysts or masses. The hollow viscera is without obstruction, focal bowel wall thickening, or inflammatory stranding. The appendix is normal. There is no free air, ascites or lymphadenopathy. The abdominal aorta and mesenteric arteries are patent and normal in caliber. Soft tissues and bones are unremarkable. Impression: No acute intra-abdominal findings or CT findings to explain given history. Please note that all CT scans at this facility use dose modulation, iterative reconstruction, and/or weight-based dosing when appropriate to reduce radiation dose to as low as reasonably achievable. Dictated by Jerrell Matthews MD @ 07/01/2023 6:18:13 PM Signed by:?Jerrell Matthews MD @07/01/2023 6:18:13 PM (Electronic Signature)
[2023-07-01 17:01] LABS: Bacteria Urine Few; RBC Urine 0-2 (0-2); Squamous Epithelial Cell Urine Few (None-Few); WBC Urine 0-2 (0-5)
[2023-07-01 17:04] LABS: Basophils Absolute Auto 0.03 K/uL (0.00-0.30); Basophils Percent Auto 0.4 % (0.0-3.0); Eosinophils Absolute Auto 0.12 K/uL (0.00-0.50); Eosinophils Percent Auto 1.7 % (0.0-7.0); Hematocrit 41.5 % (33.0-51.0); Hemoglobin* 13.5 gm/dL (12.0-16.0); Lymphocytes Absolute Auto 2.46 K/uL (0.90-2.90); Lymphocytes Percent Auto 35.7 % (20-44); Mean Corpuscular HGB Conc 33 gm/dL (32-36); Mean Corpuscular Hemoglobin 29 pg (26-34); Mean Corpuscular Volume 89 fL (80-100); Neutrophils Absolute Auto 3.87 K/uL (1.7-7.0); Neutrophils Percent Auto 56.2 % (42.0-72.0); Platelet Count* 313 K/uL (140-440); RDW Coefficient of Variation % 12.6 % (11.5-15.5); Red Blood Count 4.66 m/uL (4.00-5.20); White Blood Count* 6.89 K/uL (4.50-11.00)
[2023-07-01 17:06] LABS: Slide Review Reflex No
[2023-07-01 17:17] LABS: Strep A DNA Probe* NOT DETECTED (Not Detectd)
[2023-07-01 17:24] LABS: Albumin* 4.5 g/dL (3.3-5.0); Chloride* 105 mmol/L (96-114)
[2023-07-01 17:25] LABS: Potassium* 4.2 mmol/L (3.6-5.1); Sodium* 140 mmol/L (135-149)
[2023-07-01 17:27] LABS: Anion Gap 6 mEq/L (7-15); Aspartate Amino Transferase* 35 U/L (12-35); Bilirubin Total* 0.6 mg/dL (0.1-1.5); Carbon Dioxide* 29 mmol/L (20-32); Creatinine* 0.7 mg/dL (0.5-1.5); Est. Creatinine Clearance* 108.01; Estimated Glomerular Filt Rate 118 ml/min
[2023-07-01 17:28] LABS: Alanine Aminotransferase* 43 U/L (4-35); Alkaline Phosphatase* 52 U/L (40-150); Blood Urea Nitrogen* 8 mg/dL (5-24); Calcium* 9.6 mg/dL (8.4-10.6); Glucose* 100 mg/dL (60-115); Lipase* 140 U/L (23-300); Total Protein* 8.1 g/dL (6.0-8.3)
[2023-07-01 19:14] VITALS: BP 135/99; PULSE 67; RESP 18
== END 2023-07-01 19:19 | disposition home or self-care (01) ==
PROVIDERS: Emergency Provider Emergency Medicine; PCP Nurse Practitioner Family
DX: R10.9 Unspecified abdominal pain (principal); R19.7 Diarrhea, unspecified
CPT/HCPCS: 36415; 74177; 80053; 81001; 81025; 83690; 85025; 87086; 87651; 96374; 99283; 99284; 99285; Q9967

== ENCOUNTER 2023-07-03 10:00 | Outpatient (CLI) | payer OTHER, SELFPAY | END 2023-07-03 10:01 | disposition home or self-care (01) | LOC: NFLDREF 07-05 09:12 | PROVIDERS: PCP Nurse Practitioner Family; Referring Provider Nurse Practitioner Family; Visit Provider Nurse Practitioner | DX: N30.00 Acute cystitis without hematuria (principal) | CPT/HCPCS: 87086 ==

== ENCOUNTER 2023-07-05 08:27 | Emergency (ER) | payer OTHER, SELFPAY ==
[2023-07-05 08:30] VITALS: BP 105/71; PULSE 64; RESP 16; TEMP 36.1; O2SAT 99; BMI 47.6
--- NOTE | 2023-07-05 08:53 | ED_ITS ---
HPI - General Adult General Chief complaint: Abdominal Pain Stated complaint: poss uti,abdominal pain,redness Time Seen by Provider: 07/05/23 08:29 Source: patient Mode of arrival: ambulatory Limitations: no limitations History of Present Illness HPI narrative: 33-year-old female coming in today complaining of abdominal pain. Patient states she has been having abdominal pain on and off for a while now however th is morning she woke up and the pain was more intense in what she describes the left lower quadrant. She is currently on day 2 of Bactrim for UTI. She denies any fevers or chills. She has not been vomiting. No changes in her appetite. No diarrhea. She still has some mild dysuria. The no blood in her stool or urine. Walking makes the pain worse but it is not constant. The pain comes and goes sometimes it is not there. She is also concerned because she noticed redness of the anterior abdominal wall this morning and she states that she has had cellulitis in the past she would like to have that evaluated as well. Related Data Home Medications Medication Instructions Recorded Confirmed lisdexamfetamine 30 mg capsule 30 mg PO QAM 05/05/23 07/05/23 Previous Rx's Medication Instructions Recorded metformin 500 mg tablet 500 mg PO BIDWMEAL 90 days #180 01/01/23 tabs omeprazole 20 mg capsule,delayed 20 mg PO QDAY #60 caps 04/26/23 release levonorgestrel-ethinyl estradiol 1 tab PO QDAY #28 tabs 06/18/23 0.1 mg-20 mcg tablet (Aviane) sulfamethoxazole 800 1 tab PO BID 5 days #10 tabs 07/03/23 mg-trimethoprim 160 mg tablet Allergies Allergy/AdvReac Type Severity Reaction Status Date / Time penicillin V Allergy Mild Hives Verified 07/03/23 10:18 Review of Systems Status of ROS: Reports: 10 or more systems reviewed and unremarkable except as noted in History and below [facility] Medical History Pharyngitis ?J02.9 - Acute pharyngitis, unspecified (ICD-10) Breast lump ?N63.0 - Unspecified lump in unspecified breast (ICD-10) Peripheral tear of medial meniscus of right knee ?S83.221A - Peripheral tear of medial meniscus, current injury, right knee, initial encounter (ICD-10) Complete tear of right ACL ?S83.511A - Sprain of anterior cruciate ligament of right knee, initial encounter (ICD-10) GERD (gastroesophageal reflux disease) ?K21.9 - Gastro-esophageal reflux disease without esophagitis (ICD-10) ADHD ?F90.9 - Attention-deficit hyperactivity disorder, unspecified type (ICD-10) Anxiety ?F41.9 - Anxiety disorder, unspecified (ICD-10) Insomnia ?G47.00 - Insomnia, unspecified (ICD-10) History of pre-eclampsia (2018) ?Z87.59 - Personal history of other complications of , childbirth and the puerperium (ICD-10) Surgical History S/P medial meniscus repair of right knee ?Z98.890 - Other specified postprocedural states (ICD-10) S/P ACL reconstruction ?Z98.890 - Other specified postprocedural states (ICD-10) History of arthroscopy of right knee (05/07/23) ?Z98.890 - Other specified postprocedural states (ICD-10) Hx of umbilical hernia repair ?Z98.890 - Other specified postprocedural states (ICD-10) ?Z87.19 - Personal history of other diseases of the digestive system (ICD-10) History of cholecystectomy ?Z90.49 - Acquired absence of other specified parts of digestive tract (ICD- 10) History of tubal ligation (2019) ?Z98.51 - Tubal ligation status (ICD-10) History of 2 sections ?Z98.891 - History of uterine scar from previous surgery (ICD-10) Family History Maternal Grandfather Coronary artery disease Dysfunctional gallbladder Stomach ulcer Aunt Breast cancer Paternal Grandmother Diabetes Father Liver disease High blood pressure Mother Mental health disorder Muscle disease Dysfunctional gallbladder Maternal Grandmother Mental health disorder Endometrial cancer Other Colon cancer Thyroid disease Uterine cancer Social History Narrative: . 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 Regular exercise, 6x/week, when able. Non-smoker. Alcohol, none. No illicit drug use. Smoking Status: Never smoker Do you use any of these nicotine containing products: None Second hand tobacco smoke exposure: No How often do you have a drink containing alcohol: never How often do you have six or more drinks on one occasion: Never AUDIT-C Alcohol total score: 0 Non-prescribed substance use: marijuana (any form) Non-prescribed substance use details: cbd gummy Caffeine: Yes Little interest or pleasure in doing things: several days Feeling down, depressed, or hopeless: not at all Are you using contraception or practicing any form of control: No service: No Exam Narrative: Exam Narrative: Morbidly obese, well-developed patient in no acute distress. Alert and oriented. Answers questions appropriately. Mood and affect are appropriate. Thoughts are goal oriented and rational. No tangential or magical thinking noted. Patient speaks in full sentences without needing to catch her breath. She does not appear ill or toxic. HEENT: Normocephalic atraumatic. Pupils are equally round reactive to light. Extraocular muscles are intact. Conjunctivae are moist without any icterus noted. Moist mucous membranes. Cardiovascular: Heart is regular rate and rhythm. Lungs: Clear to auscultation bilaterally. No pain with breathing or deep inspiration. Abdomen: Soft and nontender nondistended with normal bowel sounds. No guarding or rebound. Difficult to assess for organomegaly secondary to body habitus. The abdominal wall appears normal. There is no redness noted. There is no abnormality noted under the pannus. Skin: Well perfused without any obvious rashes. Const: Vital Signs, click to edit/add: Vital Signs - 24 hr 07/05/23 08:30 Temperature 96.9 F L Pulse Rate [Pulse Oximeter] 64 Respiratory Rate 16 Blood Pressure [Ri ght Upper Arm] 105/71 Pulse Oximetry 99 Oxygen Delivery Me thod Room Air Course Course ED Course: Patient attempts to reproduce her pain while she was here as she is currently asymptomatic. After a few steps she states that she can feel a shooting pain in the left periumbilical area. Again it just comes and then this appears. She then tells me that she has been doing exercises after she had knee surgery, such as squatting and other exercises that she has never done before and wonders if this could possibly the cause of her pain. Vital Signs Vital signs: Initial Vital Signs Temperature 96.9 F L 07/05/23 08:30 Temperature Source Temporal Artery Scan 07/05/23 08:30 Pulse Rate 64 07/05/23 08:30 Respiratory Rate 16 07/05/23 08:30 Blood Pressure 105/71 07/05/23 08:30 Blood Pressure Mean 82 07/05/23 08:30 Blood Pressure Position Sitting 07/05/23 08:30 Pulse Oximetry 99 07/05/23 08:30 Oxygen Delivery Method Room Air 07/05/23 08:30 Vital Signs Temperature 96.9 F L 07/05/23 08:30 Pulse Rate 64 07/05/23 08:30 Respiratory Rate 16 07/05/23 08:30 Blood Pressure 105/71 07/05/23 08:30 Pulse Oximetry 99 07/05/23 08:30 Oxygen Delivery Method Room Air 07/05/23 08:30 Temperature 96.9 F L 07/05/23 08:30 Pulse Rate 64 07/05/23 08:30 Respiratory Rate 16 07/05/23 08:30 Blood Pressure 105/71 07/05/23 08:30 Pulse Oximetry 99 07/05/23 08:30 Oxygen Delivery Method Room Air 07/05/23 08:30 Medical Decision Making MDM Narrative Medical decision making narrative: 33-year-old female with abdominal discomfort-I do believe this is likely musculoskeletal in nature. Patient had a CT scan done 4 days ago of her abdomen and was normal. I do not think that further workup is needed at this time given the nature of her discomfort. We discussed treatment with Tylenol and heat. We discussed gentle stretching. As far as concerns of cellulitis, reassure her that I do not see any evidence of cellulitis on her examination today. Patient is able to look at that area of concern herself while she is here and she has taken aback that the area is not red. She is reassured. Discharge Plan Discharge Clinical Impression: Abdominal discomfort Patient Disposition: Home, Self-Care Condition: Stable Additional Instructions: Your pain is likely due to muscle discomfort secondary to new exercises. Recommend Tylenol as needed and gentle heat to the area, do not apply heat directly to skin. Recommend you return to the ER if you develop a fever or vomiting. Prescriptions: No Action omeprazole 20 mg capsule,delayed release(DR/EC) 20 mg PO QDAY Qty: 60 0RF lisdexamfetamine 30 mg capsule 30 mg PO QAM sulfamethoxazole-trimethoprim 800-160 mg tablet 1 tab PO BID 5 Days Qty: 10 0RF metformin 500 mg tablet 500 mg PO BIDWMEAL 90 Days Qty: 180 2RF levonorgestrel-ethinyl estrad [Aviane] 0.1-20 mg-mcg tablet 1 tab PO QDAY Qty: 28 0RF Follow Up/Referrals: Janet Sue, [employer], [employer] [Primary Care Provider] - Stand Alone Forms: [facility] Info Instructions
== END 2023-07-05 09:08 | disposition home or self-care (01) ==
LOC: ED 09:02
PROVIDERS: Emergency Provider Family Medicine; PCP Nurse Practitioner Family
DX: R10.9 Unspecified abdominal pain (principal)
CPT/HCPCS: 99282; 99283

== ENCOUNTER 2023-07-08 08:53 | Outpatient (CLI) | payer OTHER, SELFPAY | END 2023-07-08 08:54 | disposition home or self-care (01) | LOC: NFLDREF 07-09 07:28 | PROVIDERS: PCP Nurse Practitioner Family; Referring Provider Nurse Practitioner Family; Visit Provider Physician Assistant | DX: R35.0 Frequency of micturition (principal) | CPT/HCPCS: 87086 ==

== ENCOUNTER 2023-07-19 12:17 | Outpatient (CLI) | payer OTHER, SELFPAY ==
--- NOTE | 2023-07-19 13:02 | W.ANESCHARGE ---
Anesthesia Charges Start Date/Time Anesthesia Start Date: 07/19/23 Stop Date/Time Anesthesia Stop Date: 07/19/23
--- NOTE | 2023-07-19 13:17 | W.ANESCHARGE ---
Anesthesia Charges Start Date/Time Anesthesia Start Date: 07/19/23 Anesthesia Start Time: 12:55 Stop Date/Time Anesthesia Stop Date: 07/19/23 Anesthesia Stop Time: 13:15
== END 2023-07-19 12:18 | disposition home or self-care (01) ==
LOC: OP CLINIC 12:18
PROVIDERS: PCP Nurse Practitioner Family; Visit Provider Surgery
DX: K21.9 Gastro-esophageal reflux disease without esophagitis (principal)
CPT/HCPCS: 00731; 43239; 88305; J2704

== ENCOUNTER 2023-08-05 15:48 | Outpatient (CLI) | payer OTHER, SELFPAY ==
--- NOTE | 2023-08-05 16:00 | CT_ITS ---
Patient: REINA MUNOZ Facility:?[facility] Patient ID:?[id number] Site Patient ID:?[id number]. Site :?1990 Study:?CT-Sinus WITHOUT-08/05/2023 4:08:22 PM Ordering Physician:RORY Final Report: Indication: CHRONIC SINUSITIS Technique: CT of the paranasal sinuses without contrast. Coronal and sagittal reformatted images. Bone and soft tissue algorithms. Comparison: None. Findings: Frontal sinuses: Trace mucosal thickening in the right frontal sinus. The frontal sinuses are otherwise clear bilaterally. Ethmoid air cells: The ethmoid air cells are clear. Asymmetric depth of the olfactory fossa measuring 1 cm on the left side and 0.8 cm on the right side. The anterior ethmoidal arteries are well-covered by bone. Sphenoid sinuses: The sphenoid sinuses and ostia are clear. No optic canal or carotid canal dehiscence. Maxillary sinuses: The maxillary sinuses are clear. The osteomeatal units are clear. Nasal cavity: Rightward deviation of the nasal septum with septal spur that contacts the right inferior turbinate. No fadia bullosa. No paradoxical turbinates. Skullbase, maxilla, TMJ: No lytic or blastic osseous lesions. No periapical tooth lucencies. Mastoid air cells are clear. Orbital contents: Unremarkable Imaged intracranial contents: Unremarkable Imaged soft tissues structures: Unremarkable IMPRESSION: 1. No evidence of acute sinusitis. No air-fluid levels or osteoneogenesis. 2. Trace mucosal thickening in the right frontal sinus. Otherwise no evidence of paranasal sinus inflammation. 3. Rightward deviation of the nasal septum with septal spur that contacts the right inferior turbinate. Please note that all CT scans at this facility use dose modulation, iterative reconstruction, and/or weight-based dosing when appropriate to reduce radiation dose to as low as reasonably achievable. Dictated by Donovan Cheatham MD @ 08/05/2023 4:24:05 PM Signed by:?Donovan Cheatham MD @08/05/2023 4:24:05 PM (Electronic Signature)
== END 2023-08-05 15:49 | disposition home or self-care (01) ==
LOC: CT 15:50
PROVIDERS: PCP Internal Medicine; Visit Provider Otolaryngology
DX: J32.9 Chronic sinusitis, unspecified (principal); J34.2 Deviated nasal septum
CPT/HCPCS: 70486

== ENCOUNTER 2023-08-31 09:48 | Outpatient (CLI) | payer OTHER, SELFPAY ==
--- NOTE | 2023-08-31 10:00 | CRLHL7_ITS ---
For Patients: As a result of the Century Cures Act, medical imaging exams and procedure reports are released immediately into your electronic medical record. You may view this report before your referring provider. If you have questions, please contact your health care provider. INDICATION: Dysphagia. Food getting stuck. TECHNIQUE: CT images were acquired through the neck soft tissues during infusion of iodinated contrast (147 cc [id number]. FINDINGS: The included paranasal sinuses are clear. Convex right posterior nasal septal curve. Nasopharynx unremarkable. Prominent bilateral palatine tonsils the left slightly larger than the right no evidence of tonsillar or peritonsillar abscess or enhancing lesion. The adjacent parapharyngeal fat spaces are unremarkable. Major salivary glands unremarkable. Tongue base epiglottis hypopharynx larynx and subglottic trachea are unremarkable thyroid gland unremarkable. Scattered normal size (subcentimeter) lymph nodes are noted bilaterally but there are no pathologically enlarged lymph nodes or nodes with worrisome characteristics. IMPRESSION: 1. Mildly enlarged bilateral palatine tonsils (left larger than right) without evidence of adjacent abscess or deeply invasive lesion. 2. No evidence of upper airway obstruction. Please note that all CT scans at this facility use dose modulation, iterative reconstruction, and/or weight-based dosing when appropriate to reduce radiation dose to as low as reasonably achievable. Dictated by Song Stokes MD @ 09/01/2023 8:01:31 AM (Electronically Signed)
== END 2023-08-31 09:49 | disposition home or self-care (01) ==
LOC: CT 09:48
PROVIDERS: PCP Internal Medicine; Visit Provider Otolaryngology
DX: R13.10 Dysphagia, unspecified (principal); J35.1 Hypertrophy of tonsils
CPT/HCPCS: 70491; Q9967

== ENCOUNTER 2023-09-06 18:22 | Emergency (ER) | payer OTHER, SELFPAY ==
[2023-09-06 18:25] VITALS: BP 152/116; PULSE 108; RESP 18; TEMP 36.6; O2SAT 100; BMI 47.6
--- NOTE | 2023-09-06 18:38 | CRLHL7_ITS ---
For Patients: As a result of the Century Cures Act, medical imaging exams and procedure reports are released immediately into your electronic medical record. You may view this report before your referring provider. If you have questions, please contact your health care provider. INDICATION: Left lower extremity pain. TECHNIQUE: Left lower extremity Doppler venous ultrasound examination was performed. Spectral analysis was performed. Grayscale and color Doppler images were obtained. COMPARISON: None. FINDINGS: RIGHT LOWER EXTREMITY: Common femoral vein: Fully compressible. No deep vein thrombus. Normal flow and response to augmentation on color Doppler imaging. LEFT LOWER EXTREMITY: Common femoral vein: Fully compressible. No deep vein thrombus. Normal flow and response to augmentation on color Doppler imaging. Superficial femoral vein: Fully compressible. No deep vein thrombus. Normal flow on color Doppler imaging. Deep femoral vein: No deep vein thrombus Popliteal vein: Fully compressible. No deep vein thrombus. Normal flow on color Doppler imaging. Lower calf: There is noncompressibility of 1 of the paired peroneal veins in the left lower calf, with absence of flow on color Doppler imaging, compatible with an occlusive deep vein thrombus. The posterior tibial vein was fully compressible. Superficial veins: The superficial veins, including the greater saphenous vein, remain patent and are fully compressible. Soft tissues: No popliteal fossa fluid collection identified. IMPRESSION: Acute deep vein thrombus within a left peroneal vein. Dictated by Sekou Betts MD @ 09/06/2023 8:36:08 PM (Electronically Signed)
--- NOTE | 2023-09-06 18:38 | ED.GENADULT ---
HPI - General Adult General Chief complaint: Extremity Pain/Injury, Lower Stated complaint: L leg pain, swelling Time Seen by Provider: 09/06/23 18:32 History of Present Illness HPI narrative: This 33-year-old female comes in reporting pain in her left calf over the past day or so. She does not report any injury event. She states that she did have a long car ride that was [address] This occurred almost a week ago. She also had surgery to her right knee about 3 months ago and is going through some rehab but this was suspended as she has right plantar fasciitis. Her concern today is the pain in her left lower extremity and wondering if she might have a blood clot. She does not have any prior history of blood clot and is not on any anticoagulants. Related Data Home Medications ?Medication ?Instructions ?Recorded ?Confirmed lisdexamfetamine 30 mg capsule 30 mg PO QAM 05/05/23 09/01/23 [id number]-[id number]-[id number] 250 2 tab PO Q6H PRN 09/01/23 09/01/23 mg-250 mg-65 mg tablet loratadine [Claritin] PO 09/01/23 09/01/23 Previous Rx's ?Medication ?Instructions ?Recorded metformin 500 mg tablet 500 mg PO BIDWMEAL 90 days #180 01/01/23 tabs omeprazole 20 mg capsule,delayed 20 mg PO QDAY #60 caps 04/26/23 release apixaban 5 mg (74 tabs) tablets in See Rx Instructions PO .COMPLEX 09/06/23 a dose pack (Eliquis DVT-PE Treat #74 ea 30D Start) Allergies Allergy/AdvReac Type Severity Reaction Status Date / Time penicillin V Allergy Mild Hives Verified 09/01/23 12:52 Review of Systems Status of ROS: Reports: 10 or more systems reviewed and unremarkable except as noted in History and below Narrative: Constitutional: No fevers, no weight gain or loss. Eyes: No discharge. No vision changes. HENT: No congestion, no sore throat, no ear pain. Cardiovascular: No chest pain, no palpitations. Respiratory: No shortness of breath, no wheezes, no cough. Gastrointestinal: No abdominal pain, no vomiting, no diarrhea. Genitourinary: No dysuria, no hematuria. Musculoskeletal: Normal range of motion. Pain in the left calf as described above. Skin: No rashes, no pruritis. Neurological: No dizziness, weakness, sensory change, speech change. Endo/Heme/Allergies: No bruising or bleeding. No polydipsia. Pysch: no suicidality, no anxiety, no insomnia. All other systems reviewed and are negative. [facility] Medical History Pharyngitis ?J02.9 - Acute pharyngitis, unspecified (ICD-10) Breast lump ?N63.0 - Unspecified lump in unspecified breast (ICD-10) Peripheral tear of medial meniscus of right knee ?S83.221A - Peripheral tear of medial meniscus, current injury, right knee, initial encounter (ICD-10) Complete tear of right ACL ?S83.511A - Sprain of anterior cruciate ligament of right knee, initial encounter (ICD-10) GERD (gastroesophageal reflux disease) ?K21.9 - Gastro-esophageal reflux disease without esophagitis (ICD-10) ADHD ?F90.9 - Attention-deficit hyperactivity disorder, unspecified type (ICD-10) Anxiety ?F41.9 - Anxiety disorder, unspecified (ICD-10) Insomnia ?G47.00 - Insomnia, unspecified (ICD-10) History of pre-eclampsia (2018) ?Z87.59 - Personal history of other complications of , childbirth and the puerperium (ICD-10) Surgical History S/P medial meniscus repair of right knee ?Z98.890 - Other specified postprocedural states (ICD-10) S/P ACL reconstruction ?Z98.890 - Other specified postprocedural states (ICD-10) History of arthroscopy of right knee (05/07/23) ?Z98.890 - Other specified postprocedural states (ICD-10) Hx of umbilical hernia repair ?Z98.890 - Other specified postprocedural states (ICD-10) ?Z87.19 - Personal history of other diseases of the digestive system (ICD-10) History of cholecystectomy ?Z90.49 - Acquired absence of other specified parts of digestive tract (ICD-10) History of tubal ligation (2019) ?Z98.51 - Tubal ligation status (ICD-10) History of 2 sections ?Z98.891 - History of uterine scar from previous surgery (ICD-10) Family History Maternal Grandfather Coronary artery disease Dysfunctional gallbladder Stomach ulcer Aunt Breast cancer Paternal Grandmother Diabetes Father Liver disease High blood pressure Mother Mental health disorder Muscle disease Dysfunctional gallbladder Maternal Grandmother Mental health disorder Endometrial cancer Other Colon cancer Thyroid disease Uterine cancer Social History Narrative: . 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 Regular exercise, 6x/week, when able. Non-smoker. Alcohol, none. No illicit drug use. Smoking Status: Never smoker Do you use any of these nicotine containing products: None Second hand tobacco smoke exposure: No How often do you have a drink containing alcohol: never How often do you have six or more drinks on one occasion: Never AUDIT-C Alcohol total score: 0 Non-prescribed substance use: marijuana (any form) Non-prescribed substance use details: cbd gummy Caffeine: Yes Little interest or pleasure in doing things: several days Feeling down, depressed, or hopeless: not at all Are you using contraception or practicing any form of control: No service: No Exam Narrative: Exam Narrative: Constitutional: Well-developed, well-nourished, no acute distress. HEENT: Normocephalic, atraumatic. Neck: Normal range of motion. Nontender. Supple. Heart: Intact distal pulses. Lungs: No chest discomfort. No wheezes, rhonchi, or rales. Abdomen: Nontender. Back: Normal range of motion. Extremities: Normal range of motion. No sign of injury. Normal healing surgical wounds to the right knee. Left calf has tenderness but no sign of swelling or erythema or ecchymosis. Skin: Intact. No rash. Warm. No erythema or pallor. Neurologic: No altered sensation. No weakness. Alert and oriented. Psychiatric: No suicidality. No anxiety or depression. No insomnia. Nursing notes and vitals signs are reviewed. Const: Vital Signs, click to edit/add: Vital Signs - 24 hr 09/06/23 18:25 Temperature 97.8 F Pulse Rate [Right Pulse Oximeter] 108 H Respiratory Rate 18 Blood Pressure [Ri ght Upper Arm] 152/116 H Pulse Oximetry 100 Oxygen Delivery Me thod Room Air Course Vital Signs Vital signs: Initial Vital Signs Temperature 97.8 F 09/06/23 18:25 Temperature Source Temporal Artery Scan 09/06/23 18:25 Pulse Rate 108 H 09/06/23 18:25 Respiratory Rate 18 09/06/23 18:25 Blood Pressure 152/116 H 09/06/23 18:25 Blood Pressure Mean 128 H 09/06/23 18:25 Blood Pressure Position Sitting 09/06/23 18:25 Pulse Oximetry 100 09/06/23 18:25 Oxygen Delivery Method Room Air 09/06/23 18:25 Vital Signs Temperature 97.8 F 09/06/23 18:25 Pulse Rate 108 H 09/06/23 18:25 Respiratory Rate 18 09/06/23 18:25 Blood Pressure 152/116 H 09/06/23 18:25 Pulse Oximetry 100 09/06/23 18:25 Oxygen Delivery Method Room Air 09/06/23 18:25 Temperature 97.8 F 09/06/23 18:25 Pulse Rate 108 H 09/06/23 18:25 Respiratory Rate 18 09/06/23 18:25 Blood Pressure 152/116 H 09/06/23 18:25 Pulse Oximetry 100 09/06/23 18:25 Oxygen Delivery Method Room Air 09/06/23 18:25 Medical Decision Making MDM Narrative Medical decision making narrative: This 33-year-old female comes in with pain in her left calf and is concerned about a blood clot. She did have a long car ride [address] several days ago. An ultrasound of her left lower extremity is obtained and does show evidence of clot in the area where she is having pain. The patient is not showing any sign of tachycardia, chest pain, or tachypnea. She did arrive with a pulse at 108 beats per minute but at the time of my visit I rechecked her pulse at 80 beats per minute. The patient received an oral dose of Eliquis 10 mg here and a prescription for the Eliquis starter pack. I advised her to follow-up with her primary physician for ongoing management. Discharge Plan Discharge Clinical Impression: Deep venous thrombosis Patient Disposition: Home, Self-Care Condition: Stable Additional Instructions: Take medication as prescribed. Follow up with primary physician for ongoing management. Return if worsening symptoms occur. Prescriptions: [place] DVT-PE Treat 30D Start 5 mg (74 tabs) tablets,dose pack See Rx Instructions PO .COMPLEX Qty: 74 0RF Rx Instructions: orally per package directions No Action omeprazole 20 mg capsule,delayed release(DR/EC) 20 mg PO QDAY Qty: 60 0RF lisdexamfetamine 30 mg capsule 30 mg PO QAM metformin 500 mg tablet 500 mg PO BIDWMEAL 90 Days Qty: 180 2RF loratadine [Claritin] PO [id number]-vsswrqigwqyyw-njzesmjv 250-250-65 mg tablet 2 tab PO Q6H PRN Follow Up/Referrals: Fiordaliza Polanco [Primary Care Provider] - Stand Alone Forms: [employer] Info Instructions
[2023-09-06] MEDS: APIXABAN 5 MG TABLET 10 MG PO (20:13)
== END 2023-09-06 20:17 | disposition home or self-care (01) ==
PROVIDERS: Emergency Provider Emergency Medicine Emergency Medical Services; PCP Internal Medicine
DX: I82.502 Chronic embolism and thrombosis of unspecified deep veins of left lower extremity (principal)
CPT/HCPCS: 93971; 99283; 99284; A9270

== ENCOUNTER 2023-09-06 19:55 | Outpatient (CLI) | payer OTHER, SELFPAY ==
--- NOTE | 2023-09-21 12:50 | W.PM.SLEEP ---
Sleep Study Details Details Interpreting Provider: Lorraine Date of Sleep Study: 09/06/23 Sleep Study Details: STUDY TYPE:? Home unattended ? BMI:? 47.9 ORDERING PROVIDER:Rut Peters INDICATION:? Concern about sleep apnea ? SLEEP SUMMARY:? 618 minutes monitored RESPIRATORY SUMMARY:? AHI 7.7, supine 11.1, left lateral 8.7, right lateral 4.0 Low oxygen 86 0.1% of study oxygen less than 90% Snoring 28.3% PERIODIC LIMB MOVEMENTS OF SLEEP:? Not recorded CARDIAC:? 44-102, mean 57.2 beats per minute IMPRESSION:? Mild obstructive sleep apnea somewhat worse in the supine position RECOMMENDATION: Treatment options include weight loss, CPAP, dental appliance and/or airway expansion surgery.
== END 2023-09-06 19:56 | disposition home or self-care (01) ==
LOC: SLEEP 19:55
PROVIDERS: PCP Internal Medicine; Visit Provider Otolaryngology
DX: G47.33 Obstructive sleep apnea (adult) (pediatric) (principal)
CPT/HCPCS: 95806

== ENCOUNTER 2023-09-09 09:58 | Outpatient (CLI) | payer OTHER, SELFPAY ==
--- NOTE | 2023-09-09 10:15 | CRLHL7_ITS ---
For Patients: As a result of the Century Cures Act, medical imaging exams and procedure reports are released immediately into your electronic medical record. You may view this report before your referring provider. If you have questions, please contact your health care provider. Technique: Double-contrast esophagram performed after the uneventful administration of effervescent crystals and thick barium followed by thin barium. Fluoroscopy time 1 minute. Indication: TROUBLE BREATHING. FEELS SOMETHING BLOCKING THROAT Comparison: CT neck 08/31/2023 Findings: Esophagus: Normal morphology and motility. No stricture or mass. Gastroesophageal reflux: None. Impression: Normal double-contrast esophagram. Dictated by Donovan Landin MD @ 09/09/2023 11:17:39 AM (Electronically Signed)
== END 2023-09-09 09:59 | disposition home or self-care (01) ==
LOC: RAD 09:59
PROVIDERS: PCP Internal Medicine; Visit Provider Internal Medicine
DX: R13.10 Dysphagia, unspecified (principal)
CPT/HCPCS: 74221

== ENCOUNTER 2023-09-10 19:00 | Emergency (ER) | payer OTHER, SELFPAY ==
--- NOTE | 2023-09-10 19:05 | ED_ITS ---
HPI - General Adult General Date Seen: 09/10/23 Chief complaint: Shoulder Injury/Pain Stated complaint: L shoulder pain Time Seen by Provider: 09/10/23 19:05 History of Present Illness HPI narrative: 33-year-old female with a past medical history of recent DVT, polycystic ovarian syndrome, gallstones, GERD, ADHD, elevated BMI, history of cystitis, She was in the ER on 09/06/2019 4-4 days ago for left calf pain ongoing for a day. She had recently had a long car ride. Vital signs showed a pulse of 108, respiratory rate of 18, blood pressure 152/116. Oxygen sat was 100% room air. No fever. Ultrasound showed a DVT in the left calf. She was treated with Olga tho and discharged home. FINDINGS: RIGHT LOWER EXTREMITY: Common femoral vein: Fully compressible. No deep vein thrombus. Normal flow and response to augmentation on color Doppler imaging. LEFT LOWER EXTREMITY: Common femoral vein: Fully compressible. No deep vein thrombus. Normal flow and response to augmentation on color Doppler imaging. Superficial femoral vein: Fully compressible. No deep vein thrombus. Normal flow on color Doppler imaging. Deep femoral vein: No deep vein thrombus Popliteal vein: Fully compressible. No deep vein thrombus. Normal flow on color Doppler imaging. Lower calf: There is noncompressibility of 1 of the paired peroneal veins in the left lower calf, with absence of flow on color Doppler imaging, compatible with an occlusive deep vein thrombus. The posterior tibial vein was fully compressible. Superficial veins: The superficial veins, including the greater saphenous vein, remain patent and are fully compressible. Soft tissues: No popliteal fossa fluid collection identified. IMPRESSION: Acute deep vein thrombus within a left peroneal vein. Related Data Home Medications ?Medication ?Instructions ?Recorded ?Confirmed lisdexamfetamine 30 mg capsule 30 mg PO QAM 05/05/23 09/10/23 pfntnfd-eyuqmiosceffs-zyilpizx 250 2 tab PO Q6H PRN 09/01/23 09/10/23 mg-250 mg-65 mg tablet metformin 500 mg tablet 1,000 mg PO BIDWMEAL 09/10/23 09/10/23 Previous Rx's ?Medication ?Instructions ?Recorded apixaban 5 mg (74 tabs) tablets in See Rx Instructions PO .COMPLEX 09/06/23 a dose pack (Eliquis DVT-PE Treat #74 ea 30D Start) Allergies Allergy/AdvReac Type Severity Reaction Status Date / Time penicillin V Allergy Mild Hives Verified 09/10/23 20:08 [facility] Medical History Pharyngitis ?J02.9 - Acute pharyngitis, unspecified (ICD-10) Breast lump ?N63.0 - Unspecified lump in unspecified breast (ICD-10) Peripheral tear of medial meniscus of right knee ?S83.221A - Peripheral tear of medial meniscus, current injury, right knee, initial encounter (ICD-10) Complete tear of right ACL ?S83.511A - Sprain of anterior cruciate ligament of right knee, initial encounter (ICD-10) GERD (gastroesophageal reflux disease) ?K21.9 - Gastro-esophageal reflux disease without esophagitis (ICD-10) ADHD ?F90.9 - Attention-deficit hyperactivity disorder, unspecified type (ICD-10) Anxiety ?F41.9 - Anxiety disorder, unspecified (ICD-10) Insomnia ?G47.00 - Insomnia, unspecified (ICD-10) History of pre-eclampsia (2018) ?Z87.59 - Personal history of other complications of , childbirth and the puerperium (ICD-10) Surgical History S/P medial meniscus repair of right knee ?Z98.890 - Other specified postprocedural states (ICD-10) S/P ACL reconstruction ?Z98.890 - Other specified postprocedural states (ICD-10) History of arthroscopy of right knee (05/07/23) ?Z98.890 - Other specified postprocedural states (ICD-10) Hx of umbilical hernia repair ?Z98.890 - Other specified postprocedural states (ICD-10) ?Z87.19 - Personal history of other diseases of the digestive system (ICD-10) History of cholecystectomy ?Z90.49 - Acquired absence of other specified parts of digestive tract (ICD- 10) History of tubal ligation (2019) ?Z98.51 - Tubal ligation status (ICD-10) History of 2 sections ?Z98.891 - History of uterine scar from previous surgery (ICD-10) Family History Maternal Grandfather Coronary artery disease Dysfunctional gallbladder Stomach ulcer Aunt Breast cancer Paternal Grandmother Diabetes Father Liver disease High blood pressure Mother Mental health disorder Muscle disease Dysfunctional gallbladder Maternal Grandmother Mental health disorder Endometrial cancer Other Colon cancer Thyroid disease Uterine cancer Social History Narrative: . 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 Regular exercise, 6x/week, when able. Non-smoker. Alcohol, none. No illicit drug use. Smoking Status: Never smoker Do you use any of these nicotine containing products: None Second hand tobacco smoke exposure: No How often do you have a drink containing alcohol: never How often do you have six or more drinks on one occasion: Never AUDIT-C Alcohol total score: 0 Non-prescribed substance use: marijuana (any form) Non-prescribed substance use details: cbd gummy Caffeine: Yes Little interest or pleasure in doing things: several days Feeling down, depressed, or hopeless: not at all Are you using contraception or practicing any form of control: No service: No Exam Const: Vital Signs, click to edit/add: Vital Signs - 24 hr 09/10/23 19:06 Temperature 98.0 F Pulse Rate [Right Pulse Oximeter] 87 Respiratory Rate 18 Blood Pressure [Ri ght Upper Arm] 155/94 H Pulse Oximetry 99 Oxygen Delivery Me thod Room Air Course Vital Signs Vital signs: Initial Vital Signs Temperature 98.0 F 09/10/23 19:06 Temperature Source Temporal Artery Scan 09/10/23 19:06 Pulse Rate 87 09/10/23 19:06 Respiratory Rate 18 09/10/23 19:06 Blood Pressure 155/94 H 09/10/23 19:06 Blood Pressure Mean 114 H 09/10/23 19:06 Blood Pressure Position Sitting 09/10/23 19:06 Pulse Oximetry 99 09/10/23 19:06 Oxygen Delivery Method Room Air 09/10/23 19:06 Vital Signs Temperature 98.0 F 09/10/23 19:06 Pulse Rate 87 09/10/23 19:06 Respiratory Rate 18 09/10/23 19:06 Blood Pressure 155/94 H 09/10/23 19:06 Pulse Oximetry 99 09/10/23 19:06 Oxygen Delivery Method Room Air 09/10/23 19:06 Temperature 98.0 F 09/10/23 19:06 Pulse Rate 87 09/10/23 19:06 Respiratory Rate 18 09/10/23 19:06 Blood Pressure 155/94 H 09/10/23 19:06 Pulse Oximetry 99 09/10/23 19:06 Oxygen Delivery Method Room Air 09/10/23 19:06 Medical Decision Making [facility] Narrative Medical decision making narrative: This is a pleasant 33-year-old female who was diagnosed with a left calf DVT based on lower leg ultrasound 4 days ago on Wednesday. She is now on Eliquis and has been taking it as prescribed. She has had some left posterior upper shoulder pain since she woke up this morning. Also feels like her left arm was little bit weaker for a while today but that is now resolved. She came to the ER with concern that she might have blood clots. Differential here is broad. She would be at risk for PE since she was recently diagnosed with a calf DVT. Fortunately she has a normal pulse rate, normal oxygen on room air. No respiratory distress. Discussed with the patient options for workup. We decided to go ahead with CT scan. Fortunately CT scan is negative for any large PE. Of note, due to artifact impossible to exclude tiny subsegmental PE. However, at this point CT scan is reassuring and I think it is appropriate to continue on Eliquis for now. Differential for left shoulder pain is broad. Consider possible cardiac ischemia although history is not highly suggestive for angina. EKG shows no ischemia. Troponin is negative. With symptoms ongoing since this morning I do not think the patient needs serial troponins. CT scan does not show any other abnormality in the left chest such as pneumonia, pneumothorax, pleural effusion, or rib fracture. Patient thinks she might have ?slept wrong, on her left shoulder and could be having muscular pain and. This does correlate with mild tenderness on my exam. Differential would also include cervical r radiculopathy. However her transient numbness was not replete dermatomal. No ongoing neurologic symptoms. At this point I do not think she needs MR imaging of her C-spine. Consider possible stroke or TIA. However with associated pain, stroke seems less likely. No ongoing detectable neurologic deficits at this time. At this point in not think the patient needs stroke workup for head CT. Remainder of workup is reassuring. Kidney function normal. Electrolytes normal. Hemoglobin and white count normal. EKG nonischemic and trauma but a negative. Plan of care will be careful monitoring at home. Precautions for return to the ER reviewed. Questions answered. Lab Data Labs: Lab Results 09/10/23 Range/Units 19:32 WBC 7.89 (4.50-11.00) K/uL RBC 4.80 (4.00-5.20) m/uL Hgb 13.6 (12.0-16.0) gm/dL Hct 42.0 (33.0-51.0) % MCV 88 (80-100) fL MCH 28 (26-34) pg MCHC 32 (32-36) gm/dL RDW Coeff of Hi 12.6 (11.5-15.5) % Plt Count 266 (140-440) K/uL Neut % (Auto) 57.3 (42.0-72.0) % Lymph % (Auto) 35.0 (20-44) % [place] % (Auto) 6.3 (0.0-11.0) % Eos % (Auto) 1.0 (0.0-7.0) % Baso % (Auto) 0.3 (0.0-3.0) % Neut # (Auto) 4.52 (1.7-7.0) K/uL Lymph # (Auto) 2.76 (0.90-2.90) K/uL [place] # (Auto) 0.50 (0.00-0.90) K/UL Eos # (Auto) 0.08 (0.00-0.50) K/uL Baso # (Auto) 0.02 (0.00-0.30) K/uL Abs Immat Gran (auto) 0.01 (0.00-0.30) K/uL Imm/Tot Granulo (auto) 0.1 % Sodium 141 (135-149) mmol/L Potassium 4.3 (3.6-5.1) mmol/L Chloride 105 (96-114) mmol/L Carbon Dioxide 30 (20-32) mmol/L Anion Gap 6 L (7-15) mEq/L BUN 7 (5-24) mg/dL Creatinine 0.7 (0.5-1.5) mg/dL Estimated Creat Clear 108.01 Estimated GFR 118 ml/min Glucose 105 (60-115) mg/dL Calcium 9.6 (8.4-10.6) mg/dL Troponin I < 0.01 L (0.01-0.04) ng/mL HCG, Qual Negative (Negative) Imaging Data CT scan - chest: Attestation: I have reviewed the pertinent imaging results. Radiologist's impression: IMPRESSION: 1. Motion degrades evaluation of the distal segmental and subsegmental pulmonary arteries. No discrete large central or proximal segmental pulmonary embolus. 2. No intrathoracic mass or consolidation. 3. Coronary artery calcifications. ECG Data Attestation: I personally reviewed and interpreted this ECG as follows: Interpretation: Normal sinus rhythm Rate: 73 IN: 114 QRS axis: Normal axis. No pathologic Q-waves ST segment/T wave: No ST segment elevation or depression. No S1 Q 3 T3 QTc: 416 Discharge Plan Discharge Clinical Impression: Left shoulder pain Patient Disposition: Home, Self-Care Condition: Stable Instructions: Shoulder Pain (ED) Additional Instructions: Right now your workup looks reassuring. At this point we suspect your pain is probably caused by muscles in your shoulder. Monitor carefully and if you have any worsening symptoms such as worsening pain, pain down your arm, new numbness or weakness in your arm, worsening chest pain or trouble breathing, or if you have any concerns, please come back to the ER right away. Continue on your Eliquis. Please follow-up with your doctor for recheck next week Prescriptions: No Action lisdexamfetamine 30 mg capsule 30 mg PO QAM ahfapzi-tsyvxlwafdtwv-tsmqcrdc 250-250-65 mg tablet 2 tab PO Q6H PRN metformin 500 mg tablet 1,000 mg PO BIDWMEAL Eliquis DVT-PE Treat 30D Start 5 mg (74 tabs) tablets,dose pack See Rx Instructions PO .COMPLEX Qty: 74 0RF Rx Instructions: orally per package directions Follow Up/Referrals: Fiordaliza Polanco [Primary Care Provider] - Stand Alone Forms: MyHealth Info Instructions
[2023-09-10 19:06] VITALS: BP 155/94; PULSE 87; RESP 18; TEMP 36.7; O2SAT 99; BMI 46.8
--- NOTE | 2023-09-10 19:32 | CRLHL7_ITS ---
For Patients: As a result of the Century Cures Act, medical imaging exams and procedure reports are released immediately into your electronic medical record. You may view this report before your referring provider. If you have questions, please contact your health care provider. INDICATION: left shoulder and upper chest pain, recent DVT TECHNIQUE: CT chest PE was acquired with 100 cc Omnipaque 350 IV contrast. COMPARISON: None FINDINGS: Pulmonary Arteries: Motion degrades evaluation of the distal segmental and subsegmental pulmonary arteries. No discrete large central or proximal segmental pulmonary embolus. No pulmonary hypertension or right ventricular strain. Heart and Mediastinum: The visualized portions of the thyroid are normal. No axillary or supraclavicular lymphadenopathy. No mediastinal, hilar or retrocrural lymphadenopathy. Normal heart size. Normal caliber aorta. Coronary artery calcifications. Lungs and Airways: Motion. No mass or consolidation. No endoluminal lesion. Pleura: The pleural spaces are normal. Abdomen: The visualized upper abdominal organs are unremarkable. Bones and soft tissues: The skeletal structures and soft tissues of the chest wall are unremarkable. IMPRESSION: 1. Motion degrades evaluation of the distal segmental and subsegmental pulmonary arteries. No discrete large central or proximal segmental pulmonary embolus. 2. No intrathoracic mass or consolidation. 3. Coronary artery calcifications. Please note that all CT scans at this facility use dose modulation, iterative reconstruction, and/or weight-based dosing when appropriate to reduce radiation dose to as low as reasonably achievable. Dictated by Donovan Snyder MD @ 09/10/2023 8:45:07 PM (Electronically Signed)
[2023-09-10 19:45] LABS: Basophils Absolute Auto 0.02 K/uL (0.00-0.30); Basophils Percent Auto 0.3 % (0.0-3.0); Eosinophils Absolute Auto 0.08 K/uL (0.00-0.50); Hemoglobin* 13.6 gm/dL (12.0-16.0); Immature Granulocytes Abs Auto 0.01 K/uL (0.00-0.30); Immature Granulocytes Pct Auto 0.1 %; Lymphocytes Absolute Auto 2.76 K/uL (0.90-2.90); Mean Corpuscular HGB Conc 32 gm/dL (32-36); Mean Corpuscular Hemoglobin 28 pg (26-34); Mean Corpuscular Volume 88 fL (80-100); Monocytes Percent Auto 6.3 % (0.0-11.0); Neutrophils Absolute Auto 4.52 K/uL (1.7-7.0); Neutrophils Percent Auto 57.3 % (42.0-72.0); Platelet Count* 266 K/uL (140-440); RDW Coefficient of Variation % 12.6 % (11.5-15.5); White Blood Count* 7.89 K/uL (4.50-11.00)
[2023-09-10 19:59] LABS: Slide Review Reflex No
[2023-09-10 20:03] LABS: Chloride* 105 mmol/L (96-114); Sodium* 141 mmol/L (135-149)
[2023-09-10 20:04] LABS: Potassium* 4.3 mmol/L (3.6-5.1)
[2023-09-10 20:06] LABS: Creatinine* 0.7 mg/dL (0.5-1.5); Est. Creatinine Clearance* 108.01; Estimated Glomerular Filt Rate 118 ml/min
[2023-09-10 20:07] LABS: Anion Gap 6 mEq/L (7-15); Blood Urea Nitrogen* 7 mg/dL (5-24); Calcium* 9.6 mg/dL (8.4-10.6); Carbon Dioxide* 30 mmol/L (20-32); Glucose* 105 mg/dL (60-115)
[2023-09-10 20:22] LABS: Troponin I* < 0.01 ng/mL (0.01-0.04)
[2023-09-10 20:26] LABS: HCG Qualitative Serum* Negative (Negative)
[2023-09-10 21:43] VITALS: BP 145/84; PULSE 84; RESP 18; TEMP 36.7; O2SAT 99
[2023-09-10 21:44] VITALS: BP 145/84; PULSE 84; RESP 18; TEMP 36.7
--- NOTE | 2023-09-18 08:03 | ED_ITS ---
HPI - General Adult General Date Seen: 09/10/23 Chief complaint: Shoulder Injury/Pain Stated complaint: L shoulder pain Time Seen by Provider: 09/10/23 19:05 History of Present Illness HPI narrative: this is an addendum to my ED note from 09/09. I inadvertently omitted my physical exam from the note. it is included herein. Related Data Home Medications ?Medication ?Instructions ?Recorded ?Confirmed lisdexamfetamine 30 mg capsule 30 mg PO QAM 05/05/23 09/10/23 lpwupay-mxzupwroxssdz-cljjyvdv 250 2 tab PO Q6H PRN 09/01/23 09/10/23 mg-250 mg-65 mg tablet metformin 500 mg tablet 1,000 mg PO BIDWMEAL 09/10/23 09/10/23 Previous Rx's ?Medication ?Instructions ?Recorded apixaban 5 mg (74 tabs) tablets in See Rx Instructions PO .COMPLEX 09/06/23 a dose pack (ProfitSee DVT-PE Treat #74 ea 30D Start) Allergies Allergy/AdvReac Type Severity Reaction Status Date / Time penicillin V Allergy Mild Hives Verified 09/10/23 20:08 [facility] Medical History Pharyngitis ?J02.9 - Acute pharyngitis, unspecified (ICD-10) Breast lump ?N63.0 - Unspecified lump in unspecified breast (ICD-10) Peripheral tear of medial meniscus of right knee ?S83.221A - Peripheral tear of medial meniscus, current injury, right knee, initial encounter (ICD-10) Complete tear of right ACL ?S83.511A - Sprain of anterior cruciate ligament of right knee, initial encounter (ICD-10) GERD (gastroesophageal reflux disease) ?K21.9 - Gastro-esophageal reflux disease without esophagitis (ICD-10) ADHD ?F90.9 - Attention-deficit hyperactivity disorder, unspecified type (ICD-10) Anxiety ?F41.9 - Anxiety disorder, unspecified (ICD-10) Insomnia ?G47.00 - Insomnia, unspecified (ICD-10) History of pre-eclampsia (2018) ?Z87.59 - Personal history of other complications of , childbirth a nd the puerperium (ICD-10) Surgical History S/P medial meniscus repair of right knee ?Z98.890 - Other specified postprocedural states (ICD-10) S/P ACL reconstruction ?Z98.890 - Other specified postprocedural states (ICD-10) History of arthroscopy of right knee (05/07/23) ?Z98.890 - Other specified postprocedural states (ICD-10) Hx of umbilical hernia repair ?Z98.890 - Other specified postprocedural states (ICD-10) ?Z87.19 - Personal history of other diseases of the digestive system (ICD-10) History of cholecystectomy ?Z90.49 - Acquired absence of other specified parts of digestive tract (ICD- 10) History of tubal ligation (2019) ?Z98.51 - Tubal ligation status (ICD-10) History of 2 sections ?Z98.891 - History of uterine scar from previous surgery (ICD-10) Family History Maternal Grandfather Coronary artery disease Dysfunctional gallbladder Stomach ulcer Aunt Breast cancer Paternal Grandmother Diabetes Father Liver disease High blood pressure Mother Mental health disorder Muscle disease Dysfunctional gallbladder Maternal Grandmother Mental health disorder Endometrial cancer Other Colon cancer Thyroid disease Uterine cancer Social History Narrative: . 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 Regular exercise, 6x/week, when able. Non-smoker. Alcohol, none. No illicit drug use. Smoking Status: Never smoker Do you use any of these nicotine containing products: None Second hand tobacco smoke exposure: No How often do you have a drink containing alcohol: never How often do you have six or more drinks on one occasion: Never AUDIT-C Alcohol total score: 0 Non-prescribed substance use: marijuana (any form) Non-prescribed substance use details: cbd gummy Caffeine: Yes Little interest or pleasure in doing things: several days Feeling down, depressed, or hopeless: not at all Are you using contraception or practicing any form of control: No service: No Exam Narrative: Exam Narrative: Constitutional: Appears well-developed and well-nourished. Alert. Conversant. Non toxic. HENT: Head: Atraumatic. Nose: Nose normal. Mouth/Throat: Oral mucosa is clear and moist. no trismus. Pharynx normal. Eyes: Conjunctivae normal. EOM normal. Pupils equal, round, and reactive to light. No scleral icterus. Neck: Normal range of motion. Neck supple. No tracheal deviation present. Normal range of motion in her neck. No posterior midline tenderness. No anterior tenderness. Trachea midline. No mass. Cardiovascular: Normal rate, regular rhythm. No gallop. No friction rub. No murmur heard. Symmetric radial and PT artery pulses Pulmonary/Chest: Effort normal. No stridor. No respiratory distress. No wheezes. No rales. No rhonchi . No tenderness. Abdominal: Soft.No distension. No mass. No tenderness. No rebound. No guarding. Musculoskeletal: RUE: Normal range of motion. No tenderness. No deformity LUE: Normal range of motion. No tenderness. No deformity. Mild tenderness over the posterior trapezius muscle without any bruising. No rash. No shingles. Normal range of motion in her shoulder, elbow, wrist, hand. Clavicle, lateral shoulder, proximal humerus, humeral shaft are nontender RLE: Normal range of motion. No edema. No tenderness. No deformity LLE: Normal range of motion. No edema. No tenderness. No deformity Neurological: Alert and oriented to person, place, and time. Normal strength. CN II-VII intact. No sensory deficit. GCS eye subscore is 4. GCS verbal subscore is 5. GCS motor subscore is 6. Normal coordination Mental status normal. Attention normal. Alert and oriented x3. GCS 15. Memory normal. Speech fluent. Cognition normal. Cranial Nerves intact II-XII except I did not formally test gag or visual acuity. EOMI. Palate elevates symmetrically and tongue protrudes in the midline. Strength: 5/5 trapezius on the right and left 5/5 deltoid on the right and left 5/5 biceps on the right and left 5/5 triceps on the right and left 5/5 director of nuclear medicine on the right and left 5/5 thumb opposition on the right and le ft 5/5 finger abduction on the right and le ft 5/5 strength in both lower extremities Sensation intact to light touch in both upper extremities (C4-T1) Sensation intact to light touch in Both lower extremities (L4-S1). Finger to nose and coordination normal. Gait normal. Skin: Skin is warm and dry. No rash noted. No pallor. Normal capillary refill. Psychiatric: Normal mood. Normal affect. She is very polite. Course Vital Signs Vital signs: Initial Vital Signs Temperature 98.0 F 09/10/23 19:06 Temperature Source Temporal Artery Scan 09/10/23 19:06 Pulse Rate 87 09/10/23 19:06 Respiratory Rate 18 09/10/23 19:06 Blood Pressure 155/94 H 09/10/23 19:06 Blood Pressure Mean 114 H 09/10/23 19:06 Blood Pressure Position Sitting 09/10/23 19:06 Pulse Oximetry 99 09/10/23 19:06 Oxygen Delivery Method Room Air 09/10/23 19:06 Vital Signs Temperature 98.0 F 09/10/23 19:06 Pulse Rate 87 09/10/23 19:06 Respiratory Rate 18 09/10/23 19:06 Blood Pressure 155/94 H 09/10/23 19:06 Pulse Oximetry 99 09/10/23 19:06 Oxygen Delivery Method Room Air 09/10/23 19:06 Temperature 98.0 F 09/10/23 21:44 Pulse Rate 84 09/10/23 21:44 Respiratory Rate 18 09/10/23 21:44 Blood Pressure 145/84 H 09/10/23 21:44 Pulse Oximetry 99 09/10/23 21:43 Oxygen Delivery Method Room Air 09/10/23 21:43 Medical Decision Making Lab Data Labs: Lab Results 09/10/23 Range/Units 19:32 WBC 7.89 (4.50-11.00) K/uL RBC 4.80 (4.00-5.20) m/uL Hgb 13.6 (12.0-16.0) gm/dL Hct 42.0 (33.0-51.0) % MCV 88 (80-100) fL MCH 28 (26-34) pg MCHC 32 (32-36) gm/dL RDW Coeff of Hi 12.6 (11.5-15.5) % Plt Count 266 (140-440) K/uL Neut % (Auto) 57.3 (42.0-72.0) % Lymph % (Auto) 35.0 (20-44) % [place] % (Auto) 6.3 (0.0-11.0) % Eos % (Auto) 1.0 (0.0-7.0) % Baso % (Auto) 0.3 (0.0-3.0) % Neut # (Auto) 4.52 (1.7-7.0) K/uL Lymph # (Auto) 2.76 (0.90-2.90) K/uL [place] # (Auto) 0.50 (0.00-0.90) K/UL Eos # (Auto) 0.08 (0.00-0.50) K/uL Baso # (Auto) 0.02 (0.00-0.30) K/uL Abs Immat Gran (auto) 0.01 (0.00-0.30) K/uL Imm/Tot Granulo (auto) 0.1 % Sodium 141 (135-149) mmol/L Potassium 4.3 (3.6-5.1) mmol/L Chloride 105 (96-114) mmol/L Carbon Dioxide 30 (20-32) mmol/L Anion Gap 6 L (7-15) mEq/L BUN 7 (5-24) mg/dL Creatinine 0.7 (0.5-1.5) mg/dL Estimated Creat Clear 108.01 Estimated GFR 118 ml/min Glucose 105 (60-115) mg/dL Calcium 9.6 (8.4-10.6) mg/dL Troponin I < 0.01 L (0.01-0.04) ng/mL HCG, Qual Negative (Negative) Discharge Plan Discharge Clinical Impression: Left shoulder pain Patient Disposition: Home, Self-Care Condition: Stable Instructions: Shoulder Pain (ED) Additional Instructions: Right now your workup looks reassuring. At this point we suspect your pain is probably caused by muscles in your shoulder. Monitor carefully and if you have any worsening symptoms such as worsening pain, pain down your arm, new numbness or weakness in your arm, worsening chest pain or trouble breathing, or if you have any concerns, please come back to the ER right away. Continue on your Eliquis. Please follow-up with your doctor for recheck next week Prescriptions: No Action lisdexamfetamine 30 mg capsule 30 mg PO QAM lyuanfe-zzdndojsnkmpa-xhtvhlvs 250-250-65 mg tablet 2 tab PO Q6H PRN metformin 500 mg tablet 1,000 mg PO BIDWMEAL Eliquis DVT-PE Treat 30D Start 5 mg (74 tabs) tablets,dose pack See Rx Instructions PO .COMPLEX Qty: 74 0RF Rx Instructions: orally per package directions Follow Up/Referrals: Fiordaliza Polanco [Primary Care Provider] - Stand Alone Forms: MyHealth Info Instructions
== END 2023-09-10 21:45 | disposition home or self-care (01) ==
PROVIDERS: Emergency Provider Emergency Medicine; PCP Internal Medicine
DX: M25.512 Pain in left shoulder (principal)
CPT/HCPCS: 36415; 71275; 80048; 84484; 84703; 85025; 93005; 99284; Q9967

== ENCOUNTER 2023-10-13 10:45 | Outpatient (RCR) | payer OTHER, SELFPAY | END 2023-10-13 12:10 | disposition home or self-care (01) | PROVIDERS: PCP Nurse Practitioner Family; Visit Provider Orthopaedic Surgery | DX: Z98.890 Other specified postprocedural states (principal); Z51.89 Encounter for other specified aftercare | CPT/HCPCS: 97110; 97116; 97140; 97161; 97530; 97535 ==

== ENCOUNTER 2023-11-01 10:58 | Emergency (ER) | payer OTHER, SELFPAY ==
[2023-11-01] VITALS (20 sets, daily range): BP systolic 123–143; BP diastolic 81–98; PULSE 59–79; RESP 18–26; TEMP 36.4; O2SAT 97–100
--- NOTE | 2023-11-01 11:30 | CRLHL7_ITS ---
For Patients: As a result of the Century Cures Act, medical imaging exams and procedure reports are released immediately into your electronic medical record. You may view this report before your referring provider. If you have questions, please contact your health care provider. INDICATION: Chest pain TECHNIQUE: Chest 2 views COMPARISON: 09/10/2023, 08/07/2023 FINDINGS: Cardiovascular and mediastinum: Heart size and vasculature are normal in caliber and appearance. Lungs and pleural spaces: Lungs are clear. No sign of infiltrate or mass. No sign of pleural effusion. No pneumothorax. Bones and soft tissues: No significant findings. IMPRESSION: No acute findings and no significant changes from the prior exam. Dictated by Donovan Landin MD @ 11/01/2023 12:15:02 PM (Electronically Signed)
--- NOTE | 2023-11-01 11:53 | ED.CHESTPAIN ---
HPI - Chest Pain General Date Seen: 11/01/23 Chief Complaint: Chest Pain Stated Complaint: Chest Pain Time Seen by Provider: 11/01/23 11:05 Source: patient, EMS, RN notes reviewed and old records reviewed Mode of arrival: EMS Limitations: no limitations History of Present Illness HPI narrative: This is the delightful 33-year-old female who is brought in by EMS with crushing chest pain that started at 6:00 a.m. this morning and woke her from sleep, she describes in her chest with radiation to her back, it did improve somewhat over the time course there was associated with some sweating, and some nausea. There is no radiation to her left arm. She got up and moved around. Hayden a little bit better, ventrally did call the nurse triage line with a talk turn to calling 911 to come in. She does have a history of a DVT, of her leg, that she was placed on Eliquis and she has been faithful about taking the Eliquis, this occurred in September. She has no personal history of heart disease, but her grandfather had heart disease in his 70s. She has no history of diabetes, mild history of hypertension, she is unsure of her lipid level. She is a nonsmoker lifetime, does not use any drugs alcohol. Does have a history of some sinus stuff, does have a history of sleep apnea wears CPAP. MD complaint: chest pain Onset (ago): hour(s) Prior episodes: No Onset: during rest and awoke with symptoms Pain location: substernal Pain radiation: back Severity: moderate Quality: tightness Relieving factors: rest Exacerbating factors: inspiration and movement Associated symptoms: diaphoresis Treatment prior to arrival: none and other (She denied all medications include pain medications and aspirin in the ambulance.) Related Data Home Medications ?Medication ?Instructions ?Recorded ?Confirmed lisdexamfetamine 30 mg capsule 30 mg PO QAM 05/05/23 10/18/23 metformin 500 mg tablet 1,000 mg PO BIDWMEAL 09/10/23 10/18/23 apixaban 5 mg tablet (Eliquis) 5 mg PO BID 09/28/23 10/18/23 loratadine 10 mg tablet (Claritin) 10 mg PO QDAY 09/28/23 10/18/23 Previous Rx's ?Medication ?Instructions ?Recorded apixaban 5 mg (74 tabs) tablets in See Rx Instructions PO .COMPLEX 09/06/23 a dose pack (Eliquis DVT-PE Treat #74 ea 30D Start) Allergies Allergy/AdvReac Type Severity Reaction Status Date / Time penicillin V Allergy Mild Hives Verified 11/01/23 13:42 [facility] Medical History Pharyngitis ?J02.9 - Acute pharyngitis, unspecified (ICD-10) Breast lump ?N63.0 - Unspecified lump in unspecified breast (ICD-10) Peripheral tear of medial meniscus of right knee ?S83.221A - Peripheral tear of medial meniscus, current injury, right knee, initial encounter (ICD-10) Complete tear of right ACL ?S83.511A - Sprain of anterior cruciate ligament of right knee, initial encounter (ICD-10) GERD (gastroesophageal reflux disease) ?K21.9 - Gastro-esophageal reflux disease without esophagitis (ICD-10) ADHD ?F90.9 - Attention-deficit hyperactivity disorder, unspecified type (ICD-10) Anxiety ?F41.9 - Anxiety disorder, unspecified (ICD-10) Insomnia ?G47.00 - Insomnia, unspecified (ICD-10) History of pre-eclampsia (2018) ?Z87.59 - Personal history of other complications of , childbirth and the [place] (ICD-10) Surgical History S/P medial meniscus repair of right knee ?Z98.890 - Other specified postprocedural states (ICD-10) S/P ACL reconstruction ?Z98.890 - Other specified postprocedural states (ICD-10) History of arthroscopy of right knee (05/07/23) ?Z98.890 - Other specified postprocedural states (ICD-10) Hx of umbilical hernia repair ?Z98.890 - Other specified postprocedural states (ICD-10) ?Z87.19 - Personal history of other diseases of the digestive system (ICD-10) History of cholecystectomy ?Z90.49 - Acquired absence of other specified parts of digestive tract (ICD-10) History of tubal ligation (2019) ?Z98.51 - Tubal ligation status (ICD-10) History of 2 sections ?Z98.891 - History of uterine scar from previous surgery (ICD-10) Family History Maternal Grandfather Coronary artery disease Dysfunctional gallbladder Stomach ulcer Aunt Breast cancer Paternal Grandmother Diabetes Father Liver disease High blood pressure Mother Mental health disorder Muscle disease Dysfunctional gallbladder Maternal Grandmother Mental health disorder Endometrial cancer Other Colon cancer Thyroid disease Uterine cancer Social History Narrative: . 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 Regular exercise, 6x/week, when able. Non-smoker. Alcohol, none. No illicit drug use. Smoking Status: Never smoker Do you use any of these nicotine containing products: None Second hand tobacco smoke exposure: No How often do you have a drink containing alcohol: never How often do you have six or more drinks on one occasion: Never AUDIT-C Alcohol total score: 0 Non-prescribed substance use: marijuana (any form) Non-prescribed substance use details: cbd gummy Caffeine: Yes Little interest or pleasure in doing things: several days Feeling down, depressed, or hopeless: not at all Are you using contraception or practicing any form of control: No service: No Exam Narrative Exam Narrative: On examination room 6 she appears to be in no apparent distress pleasant alert speaking to me normally. She describes her pain as 6/10 to the nurse, although now she tells me it is probably a 1 or a 2. Pupils are equal round reactive to light there is no scleral icterus redness or TMs are normal oropharynx normal there is no adenopathy anterior posterior chains her chest is clear bilaterally no wheezing crackles noted her heart sounds are normal, she does not splint when she takes a deep breath in, I do not hear a pleuritic or cardiac or rub. Her abdomen is soft and obese there is no guarding no organomegaly. Scars from gallbladder removal, and umbilical hernia repair noted. Lower extremities reveal no pitting edema swelling negative Homans sign. No bruising or rashes, neurologically intact moving her upper lower extremities, and purposeful Const Vital Signs, click to edit/add: Vital Signs - 24 hr 11/01/23 11:04 11/01/23 11:30 11/01/23 11:54 Temperature 97.5 F L Pulse Rate 79 Pulse Rate [Pulse Oximeter] 62 Respiratory Rate 18 Blood Pressure Blood Pressure [Left Upper Arm] Blood Pressure [Right Upper Arm] 134/82 Pulse Oximetry 99 100 100 Oxygen Delivery Method Room Air 11/01/23 12:02 11/01/23 12:02 11/01/23 12:03 Temperature Pulse Rate 60 Pulse Rate [Pulse Oximeter] Respiratory Rate Blood Pressure 139/98 H 139/98 H Blood Pressure [Left Upper Arm] Blood Pressure [Right Upper Arm] Pulse Oximetry 99 Oxygen Delivery Method 11/01/23 12:15 11/01/23 12:30 11/01/23 12:31 Temperature Pulse Rate 59 L 65 62 Pulse Rate [Pulse Oximeter] Respiratory Rate Blood Pressure 143/93 H Blood Pressure [Left Upper Arm] Blood Pressure [Right Upper Arm] Pulse Oximetry 99 100 100 Oxygen Delivery Method 11/01/23 12:40 11/01/23 12:41 11/01/23 12:42 Temperature Pulse Rate 68 66 Pulse Rate [Pulse Oximeter] Respiratory Rate Blood Pressure 139/91 H 123/81 Blood Pressure [Left Upper Arm] 123/81 Blood Pressure [Right Upper Arm] 138/91 H Pulse Oximetry 99 100 Oxygen Delivery Method 11/01/23 12:45 11/01/23 13:21 11/01/23 13:23 Temperature Pulse Rate 66 66 66 Pulse Rate [Pulse Oximeter] Respiratory Rate Blood Pressure 143/91 H Blood Pressure [Left Upper Arm] Blood Pressure [Right Upper Arm] Pulse Oximetry 97 100 100 Oxygen Delivery Method 11/01/23 13:30 11/01/23 13:45 11/01/23 14:00 Temperature Pulse Rate 68 64 62 Pulse Rate [Pulse Oximeter] Respiratory Rate Blood Pressure Blood Pressure [Left Upper Arm] Blood Pressure [Right Upper Arm] Pulse Oximetry 99 100 100 Oxygen Delivery Method 11/01/23 14:02 11/01/23 14:15 Temperature Pulse Rate 60 59 L Pulse Rate [Pulse Oximeter] Respiratory Rate Blood Pressure 132/83 Blood Pressure [Left Upper Arm] Blood Pressure [Right Upper Arm] Pulse Oximetry 100 99 Oxygen Delivery Method Documenting provider has reviewed patient's vital signs: yes Course Vital Signs Vital signs: Initial Vital Signs Temperature 97.5 F L 11/01/23 11:04 Temperature Source Temporal Artery Scan 11/01/23 11:04 Pulse Rate 62 11/01/23 11:04 Pulse Rhythm Regular 11/01/23 11:04 Respiratory Rate 18 11/01/23 11:04 Blood Pressure 134/82 11/01/23 11:04 Blood Pressure Mean 99 11/01/23 11:04 Blood Pressure Position Supine 11/01/23 11:04 Pulse Oximetry 99 11/01/23 11:04 Oxygen Delivery Method Room Air 11/01/23 11:04 Vital Signs Temperature 97.5 F L 11/01/23 11:04 Pulse Rate 62 11/01/23 11:04 Respiratory Rate 18 11/01/23 11:04 Blood Pressure 134/82 11/01/23 11:04 Pulse Oximetry 99 11/01/23 11:04 Oxygen Delivery Method Room Air 11/01/23 11:04 Temperature 97.5 F L 11/01/23 11:04 Pulse Rate 59 L 11/01/23 14:15 Respiratory Rate 18 11/01/23 11:04 Blood Pressure 132/83 11/01/23 14:02 Pulse Oximetry 99 11/01/23 14:15 Oxygen Delivery Method Room Air 11/01/23 11:04 Medications Administered Medications: Discontinued Medications Generic Name Dose Route Start Last Admin Trade Name Freq PRN Reason Stop Dose Admin Sodium Chloride 1,000 mls @ 1,000 mls/hr 11/01/23 11:30 11/01/23 14:29 0.9 % Sodium Chloride 1000 Ml IV 11/01/23 12:29 Infused .Q1H ROBERT Infusion MDM - Chest Pain MDM Narrative Medical decision making narrative: During the evaluation of this patient I considered multiple differential diagnosis is. The life-threatening differential diagnosis include coronary disease/NV, pulmonary embolism, pneumothorax, pneumonia, and aortic dissection. Other differential diagnosis included but were not limited to pericarditis, myocarditis, chest wall pain, GERD, esophageal rupture, rib fracture contusion, pleurisy, as well as other etiologies. Medical Records Data Attestation: I reviewed the patient's medical records. Lab Data Attestation: I reviewed the patient's lab results. Labs: Lab Results 11/01/23 11/01/23 11/01/23 Range/Units 11:30 11:31 11:56 WBC 5.86 (4.50-11.00) K/uL RBC 4.32 (4.00-5.20) m/uL Hgb 12.5 (12.0-16.0) gm/dL Hct 38.7 (33.0-51.0) % MCV 90 (80-100) fL MCH 29 (26-34) pg MCHC 32 (32-36) gm/dL RDW Coeff of Hi 13.1 (11.5-15.5) % Plt Count 238 (140-440) K/uL Neut % (Auto) 60.5 (42.0-72.0) % Lymph % (Auto) 30.5 (20-44) % [place] % (Auto) 6.5 (0.0-11.0) % Eos % (Auto) 2.0 (0.0-7.0) % Baso % (Auto) 0.5 (0.0-3.0) % Neut # (Auto) 3.54 (1.7-7.0) K/uL Lymph # (Auto) 1.79 (0.90-2.90) K/uL [place] # (Auto) 0.40 (0.00-0.90) K/UL Eos # (Auto) 0.12 (0.00-0.50) K/uL Baso # (Auto) 0.03 (0.00-0.30) K/uL Abs Immat Gran (auto) 0.00 (0.00-0.30) K/uL Imm/Tot Granulo (auto) 0.0 % D-Dimer Quant (PE/DVT) < 0.27 (0.00-0.50) ug/ml Sodium 138 (135-149) mmol/L Potassium 4.6 (3.6-5.1) mmol/L Chloride 107 (96-114) mmol/L Carbon Dioxide 23 (20-32) mmol/L Anion Gap 8 (7-15) mEq/L BUN 8 (5-24) mg/dL Creatinine 0.6 (0.5-1.5) mg/dL Estimated GFR 122 ml/min Glucose 84 (60-115) mg/dL Calcium 9.4 (8.4-10.6) mg/dL Total Bilirubin 0.4 (0.1-1.5) mg/dL Direct Bilirubin 0.2 (0.0-0.5) mg/dL AST 25 (12-35) U/L ALT 19 (4-35) U/L Alkaline Phosphatase 46 (40-150) U/L Troponin I < 0.01 L (0.01-0.04) ng/mL C-Reactive Protein 0.5 (0.5-1.0) mg/dL NT-Pro-B Natriuret Pep 180 pg/mL Total Protein 7.1 (6.0-8.3) g/dL Albumin 4.1 (3.3-5.0) g/dL Urine Color Red A (Yellow) Urine Appearance Slightly Cloudy A (Clear) Urine pH 6.0 (5.0-8.5) Ur Specific [place] 1.015 (1.000-1.030) Urine Protein 3+ A (Negative) Urine Glucose (UA) Negative (Negative) Urine Ketones Negative (Negative) Urine Blood 3+ A (Negative) Urine Nitrite Negative (Negative) Urine Bilirubin 3+ A (Negative) Urine Urobilinogen 0.2 (0.2-1.0) Ur Leukocyte Esterase Negative (Negative) Urine RBC >100 A (0-2) Urine WBC 2-5 (0-5) Ur Squamous Epith Cells Few (None-Few) Urine Bacteria Few A (None) Urine Opiates Screen Negative (Negative) Ur Oxycodone Screen Negative (Negative) Urine Methadone Screen Negative (Negative) Ur Barbiturates Screen Negative (Negative) U Tricyclic Antidepress Negative (Negative) Ur Phencyclidine Scrn Negative (Negative) Ur Amphetamines Screen POSITIVE A (Negative) U Methamphetamines Scrn Negative (Negative) U Benzodiazepines Scrn Negative (Negative) Urine Cocaine Screen Negative (Negative) U Marijuana (THC) Screen POSITIVE A (Negative) Ur Drug Screen Comment See Note Lab Acknowledgement POC Troponin I 0.15 H (0.01-0.04) ng/ml 11/01/23 11/01/23 Range/Units 12:17 13:04 WBC (4.50-11.00) K/uL RBC (4.00-5.20) m/uL Hgb (12.0-16.0) gm/dL Hct (33.0-51.0) % MCV (80-100) fL MCH (26-34) pg MCHC (32-36) gm/dL RDW Coeff of Hi (11.5-15.5) % Plt Count (140-440) K/uL Neut % (Auto) (42.0-72.0) % Lymph % (Auto) (20-44) % [place] % (Auto) (0.0-11.0) % Eos % (Auto) (0.0-7.0) % Baso % (Auto) (0.0-3.0) % Neut # (Auto) (1.7-7.0) K/uL Lymph # (Auto) (0.90-2.90) K/uL [place] # (Auto) (0.00-0.90) K/UL Eos # (Auto) (0.00-0.50) K/uL Baso # (Auto) (0.00-0.30) K/uL Abs Immat Gran (auto) (0.00-0.30) K/uL Imm/Tot Granulo (auto) % D-Dimer Quant (PE/DVT) (0.00-0.50) ug/ml Sodium (135-149) mmol/L Potassium (3.6-5.1) mmol/L Chloride (96-114) mmol/L Carbon Dioxide (20-32) mmol/L Anion Gap (7-15) mEq/L BUN (5-24) mg/dL Creatinine (0.5-1.5) mg/dL Estimated GFR ml/min Glucose (60-115) mg/dL Calcium (8.4-10.6) mg/dL Total Bilirubin (0.1-1.5) mg/dL Direct Bilirubin (0.0-0.5) mg/dL AST (12-35) U/L ALT (4-35) U/L Alkaline Phosphatase (40-150) U/L Troponin I (0.01-0.04) ng/mL C-Reactive Protein (0.5-1.0) mg/dL NT-Pro-B Natriuret Pep pg/mL Total Protein (6.0-8.3) g/dL Albumin (3.3-5.0) g/dL Urine Color (Yellow) Urine Appearance (Clear) Urine pH (5.0-8.5) Ur Specific [place] (1.000-1.030) Urine Protein (Negative) Urine Glucose (UA) (Negative) Urine Ketones (Negative) Urine Blood (Negative) Urine Nitrite (Negative) Urine Bilirubin (Negative) Urine Urobilinogen (0.2-1.0) Ur Leukocyte Esterase (Negative) Urine RBC (0-2) Urine WBC (0-5) Ur Squamous Epith Cells (None-Few) Urine Bacteria (None) Urine Opiates Screen (Negative) Ur Oxycodone Screen (Negative) Urine Methadone Screen (Negative) Ur Barbiturates Screen (Negative) U Tricyclic Antidepress (Negative) Ur Phencyclidine Scrn (Negative) Ur Amphetamines Screen (Negative) U Methamphetamines Scrn (Negative) U Benzodiazepines Scrn (Negative) Urine Cocaine Screen (Negative) U Marijuana (THC) Screen (Negative) Ur Drug Screen Comment Lab Acknowledgement Test Added POC Troponin I 0.00 L (0.01-0.04) ng/ml Imaging Data CT Chest/Ab/Pelvis: Attestation: I have reviewed the pertinent imaging results. My impression: I reviewed the CT chest abdomen pelvis not see any acute findings, there was some question whether she has a little bit of panniculitis, she does not have any abdominal pain, it is more in her chest. Her troponins are negative x2. The initial elevated troponin done point of care I believe is from small sample size as the lab 1 was 000s. Very reassuring with a negative aortic testing, I believe at this time we likely can discharge her home. I went over the rib risks associated with this, and the worsening signs and symptoms were she should come back. She was very comfortable this I think some Tylenol follow up with her primary care physician to consideration of possible further workup. ECG Data Attestation: I personally reviewed and interpreted this ECG as follows: ECG interpretation date: 11/01/23 Prior ECG tracings: available for review Interpretation: EKG shows mild sinus bradycardia with a ventricular rate of 56, QRS QT and QTC are normal. No acute ST wave changes when compared to old EKG from 09/10/2023. No changes have occurred T Assessment: Normal EKG no acute changes Discharge Plan Discharge Clinical Impression: Chest pain Patient Disposition: Home, Self-Care Condition: Stable Instructions: Chest Pain (ED) Additional Instructions: Home rest, Tylenol and/or ibuprofen, consider follow-up with primary care, consider GI causes possibly for this. I do not find any evidence of a blood clot, or heart issues associated with this. That is all very reassuring. Obviously if he gets super bad then please come back, but rate now all looks good, continue with here blood thinner. Activity Level: Light activity Discharge Diet: Regular Prescriptions: No Action lisdexamfetamine 30 mg capsule 30 mg PO QAM Eliquis 5 mg tablet 5 mg PO BID loratadine [Claritin] 10 mg tablet 10 mg PO QDAY metformin 500 mg tablet 1,000 mg PO BIDWMEAL Eliquis DVT-PE Treat 30D Start 5 mg (74 tabs) tablets,dose pack See Rx Instructions PO .COMPLEX Qty: 74 0RF Rx Instructions: orally per package directions Follow Up/Referrals: Fiordaliza Polanco [Referring] - Stand Alone Forms: My[facility] Info Instructions
[2023-11-01 12:03] LABS: Amphetamine Screen Urine POSITIVE (Negative); Barbiturate Screen Urine Negative (Negative); Benzodiazepines Screen Urine Negative (Negative); Cannabinoid Screen Urine POSITIVE (Negative); Cocaine Screen Urine Negative (Negative); Methadone Screen Urine Negative (Negative); Methamphetamines Screen Urine Negative (Negative); Opiate Screen Urine Negative (Negative); Oxycodone Screen Urine Negative (Negative); Phencyclidine Screen Urine Negative (Negative); Tricyclic Antidepressant Urine Negative (Negative)
[2023-11-01 12:04] LABS: Basophils Absolute Auto 0.03 K/uL (0.00-0.30); Basophils Percent Auto 0.5 % (0.0-3.0); Eosinophils Absolute Auto 0.12 K/uL (0.00-0.50); Hematocrit 38.7 % (33.0-51.0); Hemoglobin* 12.5 gm/dL (12.0-16.0); Lymphocytes Absolute Auto 1.79 K/uL (0.90-2.90); Lymphocytes Percent Auto 30.5 % (20-44); Mean Corpuscular HGB Conc 32 gm/dL (32-36); Mean Corpuscular Hemoglobin 29 pg (26-34); Mean Corpuscular Volume 90 fL (80-100); Monocytes Percent Auto 6.5 % (0.0-11.0); Neutrophils Absolute Auto 3.54 K/uL (1.7-7.0); Neutrophils Percent Auto 60.5 % (42.0-72.0); Platelet Count* 238 K/uL (140-440); RDW Coefficient of Variation % 13.1 % (11.5-15.5); Red Blood Count 4.32 m/uL (4.00-5.20); White Blood Count* 5.86 K/uL (4.50-11.00)
[2023-11-01 12:05] LABS: Slide Review Reflex No
[2023-11-01 12:17] LABS: Troponin, Point-of-Care* 0.15 ng/ml (0.01-0.04)
[2023-11-01 12:18] LABS: Chloride* 107 mmol/L (96-114); Potassium* 4.6 mmol/L (3.6-5.1); Sodium* 138 mmol/L (135-149)
--- NOTE | 2023-11-01 12:19 | CRLHL7_ITS ---
For Patients: As a result of the Century Cures Act, medical imaging exams and procedure reports are released immediately into your electronic medical record. You may view this report before your referring provider. If you have questions, please contact your health care provider. INDICATION: Chest and back pain with elevated troponin and history of DVT COMPARISON: Same day chest radiograph TECHNIQUE: Noncontrast CT of the chest was performed. Subsequently CT of the chest, abdomen, and pelvis with intravenous contrast utilizing a dissection protocol was performed (95 milliliters Isovue 370). Reconstructed MIP images were created. FINDINGS: Mildly motion degraded exam. THORAX: Airways: The trachea and central airways are clear. Lungs: No mass or consolidation. Pleura: No effusion. Lymph nodes: No bulky thoracic lymphadenopathy. Heart: Normal size. Qualitatively mild calcification of the coronary arteries which is advanced for patient`s reported age. Aorta: Normal caliber. No acute aortic findings. Pulmonary artery: Normal caliber of the main pulmonary artery. Chest wall: Normal. Bones: There are osseous degenerative changes. ABDOMEN AND PELVIS: Angiographic phase of contrast limits evaluation of soft tissues. Liver: Smooth hepatic contour. Gallbladder and biliary tree: The gallbladder is not visualized and presumed to be surgically absent. Spleen: No splenomegaly. Pancreas: Normal. Adrenal glands: Normal. Kidneys and ureters: No hydroureteronephrosis. No suspicious renal lesions are identified. Bladder: Unremarkable CT appearance. Visualized reproductive organs: Unremarkable CT appearance. Gastrointestinal tract: No focal abnormally dilated loops of bowel. Normal caliber of the appendix without inflammatory change. There is a 4 millimeter appendicolith within the lumen of the appendix. Peritoneal cavity: No free fluid or free air. Subtle fat stranding within the central mesentery. Subtle focal fat stranding in the midline omentum (7/314). Lymph nodes: No enlarged abdominal or pelvic lymph nodes by CT size criteria. Vessels: No abdominal aortic aneurysm. Slight calcification of the abdominal aorta and its branches which is, however, advanced for patient`s reported age. The major branches of the abdominal aorta are patent. Abdominal and pelvic wall: Normal. Bones: There are osseous degenerative changes. IMPRESSION: Mildly motion degraded exam. Within this limitation: 1. No definite acute findings. Specifically, no evidence of aortic dissection. 2. Qualitatively mild calcification of the coronary arteries which is however advanced for patient`s reported age. 3. Subtle focal fat stranding in the midline omentum possibly related to age indeterminate fat necrosis/infarct. 4. Subtle fat stranding in the central mesentery such as can be seen in the context of mesenteric panniculitis. This is very commonly incidental. Please note that all CT scans at this facility use dose modulation, iterative reconstruction, and/or weight-based dosing when appropriate to reduce radiation dose to as low as reasonably achievable. Dictated by Hayes Maddox MD @ 11/01/2023 2:05:44 PM (Electronically Signed)
[2023-11-01 12:21] LABS: Creatinine* 0.6 mg/dL (0.5-1.5); Estimated Glomerular Filt Rate 122 ml/min
[2023-11-01 12:22] LABS: Anion Gap 8 mEq/L (7-15); Blood Urea Nitrogen* 8 mg/dL (5-24); Calcium* 9.4 mg/dL (8.4-10.6); Carbon Dioxide* 23 mmol/L (20-32); Glucose* 84 mg/dL (60-115)
[2023-11-01 12:24] LABS: C Reactive Protein* 0.5 mg/dL (0.5-1.0)
[2023-11-01 12:34] LABS: D Dimer Quantitative* < 0.27 ug/ml (0.00-0.50)
[2023-11-01 12:37] LABS: Albumin* 4.1 g/dL (3.3-5.0)
[2023-11-01 12:40] LABS: Alanine Aminotransferase* 19 U/L (4-35); Alkaline Phosphatase* 46 U/L (40-150); Aspartate Amino Transferase* 25 U/L (12-35); Bilirubin Direct* 0.2 mg/dL (0.0-0.5); Bilirubin Total* 0.4 mg/dL (0.1-1.5); Total Protein* 7.1 g/dL (6.0-8.3)
[2023-11-01 12:50] LABS: NT Pro B Type NatriureticPept* 180 pg/mL
[2023-11-01 12:56] LABS: Troponin I* < 0.01 ng/mL (0.01-0.04)
[2023-11-01] MEDS: 0.9 % SODIUM CHLORIDE 1000 ml 1,000 ML IV (13:22)
[2023-11-01 13:33] LABS: Appearance Urine Slightly Cloudy (Clear); Bilirubin Urine 3+ (Negative); Blood Urine 3+ (Negative); Color Urine Red (Yellow); Glucose Urine Negative (Negative); Ketones Urine Negative (Negative); Protein Urine 3+ (Negative); Specific Gravity Urine 1.015 (1.000-1.030)
[2023-11-01 13:34] LABS: Leukocyte Esterase Urine Negative (Negative); Nitrite Urine Negative (Negative); Urobilinogen Urine 0.2 (0.2-1.0)
[2023-11-01 13:35] LABS: Bacteria Urine Few; RBC Urine >100 (0-2); Squamous Epithelial Cell Urine Few (None-Few)
[2023-11-01 17:00] LABS: HCG Qualitative Serum* Negative (Negative)
== END 2023-11-01 14:55 | disposition home or self-care (01) ==
PROVIDERS: Emergency Provider Family Medicine; PCP Family Medicine
DX: R07.9 Chest pain, unspecified (principal)
CPT/HCPCS: 36415; 71046; 71275; 74174; 80048; 80076; 80306; 81001; 81025; 83880; 84484; 84703; 85025; 85379; 86140; 87086; 87186; 93005; 94761; 96360; 99284; 99285; A0425; A0427; J7030; Q9967

== ENCOUNTER 2024-02-22 14:11 | Outpatient (CLI) | payer OTHER, SELFPAY ==
--- OUTSIDE RECORDS SUMMARY | 2024-02-26 03:36 | XMS_ITS | Clinical Summary ---
Author Organization [facility] Address [address] [place] [address] Care Team Providers Care Financial Analyst Name Role Phone Pcp, None Primary Care Provider Unavailabl e Allergies Active Allergy Reactions Criticality Noted Date Comments Penicillin V UNKNOWN 05/25/2019 Medications FLUoxetine (PROZAC) 10 MG capsule TAKE TWO CAPSULES BY MOUTH DAILY 60 capsule 3 1 Active Additional Information Patient not taking.Reason: Other, Reported on 07/30/2022 VYVANSE 30 MG Cap Take 30 mg by mouth daily. 3 Active Active Problems Problem Noted Date Diagnosed Date Non-recurrent acute suppurat luis enrique otitis media of left ear without spontaneous rupture of tympanic membrane 07/30/2022 Assessment & Plan (07/30/2022 2:29 PM CDT): Acute problem S/s x 3 days C/o pain in the left side of her neck radiating from her ear. + left otalgia States last night she had pain in her lower left-sided mouth flossing last night Feels like the area is swollen Non smoker Vitals stable, afebrile No lymphadenopathy On exam: left TM erythematous, bulging consistent with AOM. No mastoid pain Clindamycin 300 mg tid x 10 days, disp #30 tablets, zero refills Tylenol or ibuprofen as needed for pain (follow package directions) Supportive care instructions provided at discharge-f/u with pcp if symptoms persist or you have no improvement. Discussed plan with patient and patient in agreement with above and verbalized understanding. ASCUS of cervix with negative high risk HPV 10/04 History of infertility, female 10/24/2020 Irregular menstrual cycle 10/24/2020 Obesity 10/24/2020 PCOS (polycystic ovarian syndrome) 10/24/2020 Umbilical hernia 10/24/2020 Anterior tibialis tendinitis of right lower extr emity 10/24/2020 Assessment & Plan (10/24/2020 11:48 AM CDT): Patient was seen, evaluated, and treated. Discussed condition and treatment options with patient. All questions were answered. Ordered, reviewed, and discussed results of x-rays with patient. o Independent interpretation of radiographs: no acute osseous abnormality. Rx for medrol dose pack. Discussed physical therapy or use of CAM boot in the future if pain does not improve. RTC PRN. Ingrown left big toenail 10/24/2020 Assessment & Plan (10/24/2020 11:48 AM CDT): Discussed removal of left hallux ingrown toenail in the future. Sore throat 07/28/2020 Assessment & Plan (07/30/2022 3:06 PM CDT): Acute problem Started this am Eating/drinking ok but painful to swallow Strep DNA was negative May gargle with warm salt water couple of times a day, 1 part salt to 3 parts water. Cool/ warm liquids will help to keep the throat moist along with OTC throat lozenges. Get plenty of rest and fluids, take Tylenol or ibuprofen for aches or fevers unless contraindicated. Assessment & Plan (07/28/2020 4:48 PM CDT): Rapid strep today was negative May gargle with warm salt water couple of times a day, 1 part salt to 3 parts water. Cool/ warm liquids will help to keep the throat moist along with OTC throat lozenges. Get plenty of rest and fluids, take Tylenol or ibuprofen for aches or fevers unless contraindicated. Anxiety 06/27/2020 Hx of preeclampsia, prior pr egnancy, currently , first trimester 02/03/2019 Obesity affecting in first trimester 1 04/05/2018 Resolved Problems Problem Noted Date Diagnosed Date Resolved Date Cough 07/28/2020 09/25/2020 Assessment & Plan (07/28/2020 4:49 PM CDT): tessalon perles three times a day as needed for cough Delsym cough syrup over the counter as needed for cough-follow package directions Other things that you can do at home to help relieve some of your symptoms are plenty of rest and fluids. For a cough use Vicks on the chest and bottom of the feet, honey as often as you would like. Would also suggest cool air humidifier at home especially at night to keep secretions loose. There are many OTC cough and cold medications, just so long as they are not contraindicated you may take any variety. Upper respiratory tract infection 07/28/2020 09/25/2020 Assessment & Plan (07/28/2020 4:49 PM CDT): Cefdinir 300 mg bid x 10 days Declined re-testing for covid Was swabbed at [facility] today, rapid negative per patient Umbilical pain 12/30/2019 09/25/2020 Assessment & Plan (12/30/2019 9:37 AM CDT): Cellulitis vs possible hernia Will start bactrim bid x 5 days Abdomen ultrasound r/o hernia ordered-results pending. Pt to schedule follow up to establish with pcp and follow up results If any worsening symptoms or pain, go to ER for further work up and evaluation. Discussed plan with patient and patient in agreement with above and verbalized understanding. 08/25/2019 06/27/2020 Status post section 08/25/2019 06/27/2020 Previous section 06/07/2019 Overview (06/07/2019): Added automatically from request for surgery [id number] Sterilization consult 06/07/20192020 Overview (06/07/2019): Added automatically from request for surgery [id number] Immunizations Immunization Administration Dates Next Due (Tdap)Tetanus/reduced Diphtheria/Pertussis, adul t 01/20/2018 [email or web address] (12+ purple) COVID-19 30 mcg/0.3 mL Vaccine, mRNA, spike protein, LNP, preservative free 06/08/2020,05/18/2020 Family History Medical History Relation Name Comments Diabetes Paternal Grandmother Relation Name Status Comments Paternal Grandmother Social History Tobacco Use Types Packs/Day Years Used Date Smoking Tobacco: Never Smokeless Tobacco: Never Tobacco Cessation:Counseling Given: Not Answered Alcohol Use Standard Drinks/Week Comments Never 0 (1 standard drink = 0.6 oz pur e alcohol) Audit C Ambulatory Answer Date Recorded Q1: How often do you have a drink containing alc ohol? Never 05/25/2019 Average Number of Drinks Not on file 020 Frequency of Binge Drinking Not on file 05/07 PHQ-2 Answer Date Recorded RETIRED 08.14.2020 PHQ-2 Score 0 Social Connections Answer Date Recorded Social Connections: Last Flowsheet Data Not on f ile 11/28/2023 Social Connections: Recent Result Not on file 11/28/2023 Personal Safety Answer Date Recorded Personal Safety: Recent Result Not on file 0 10/14/2023 Personal Safety: Last Flowsheet Data Not on file 10/14/2023 Substance Use Answer Date Recorded Substance Abuse: Most Recent Value Not on file 11/28/2023 Substance Abuse: Most Recent Value Not on file 11/28/2023 Digital Skills Answer Date Recorded How comfortable are you usin [employer] technology to manage your health care online? For example, using patient online services to schedule appointments, check for test results, or send a message to your provider? Not on file 01/09/2024 How often does someone help you access healthcar e online? Not on file 01/09/2024 What makes it difficult for you to use online information to manage your health care? Not on file 01/09/2024 Inadequate Housing Answer Date Recorded Inadequate Housing: Last Flowsheet Data Not on f ile 11/21/2023 Inadequate Housing: Recent Result Not on file 11/21/2023 Homelessness Answer Date Recorded Homelessness: Flowsheet Data Not on file Homelessness: Resent Result Not on file 11/03 Internet Answer Date Recorded Internet Access Devices Not on file 01/09/20 Internet Connection Not on file 01/09/2024 Comments No Sex and Gender Information Value Date Recorded Sex Assigned at Not on file Legal Sex Female 6:40 PM MANAGER PERIOPERATIVE Gender Identity Female 08/25/2019 5:43 AM CDT Sexual Orientation Straight 08/25/2019 5: 43 AM CDT Last Filed Vital Signs Vital Sign Reading Time Taken Comments Blood Pressure 130/82 07/30/2022 2:10 PM CDT Pulse 80 07/30/2022 2:10 PM CDT Temperature 36.5 C (97.7 F) 07/30/2022 2:10 PM CDT Respiratory Rate 16 07/30/2022 2:10 PM CDT Oxygen Saturation 99% 07/30/2022 2:10 PM CDT Inhaled Oxygen Concentration - - Weight 152.4 kg (336 lb) 07/30/2022 2:10 PM CDT Height 167.6 cm (5' 6) 10/24/2020 10:34 AM CDT Body Mass Index 54.23 10/24/2020 10:34 AM CDT Plan of Treatment Health Maintenance Due Date Last Done Comments HIV Screening 1991 Depression Screening 2003 Hepatitis C Screening 2009 Hepatitis B Vaccines (1 of 3 - 19+ 3-dose series) 2010 HPV/ Pap Cotest 2021 Cervical Cancer Screening 02/09/2022 Pap Smear 02/09/2022 02/09/2019 Diabetes Screening 06/20/2022 06/21/2019 Routine Physical 07/15/2022 07/15/2020 COVID-19 Vaccine ( season) 2023 06/08/2020, 05/18/2020 Seasonal Flu Immunization (#1) 12/05/2023 01/08/2020, 01/10/2019 DTaP/Tdap/Td Vaccines (4 - Td or Tdap) 01/21/2028 01/20/2018, 01/21/2009, 11/15/1996 HIB Vaccines Completed 10/10/1992, 11/1991, 1991, Additional history exists HPV Immunization Aged Out No longer e ligible based on patient's age to complete this topic Hepatitis A Vaccines Aged Out No long er eligible based on patient's age to complete this topic Meningococcal Vaccine Aged Out No sheila yumiko eligible based on patient's age to complete this topic RSV Immunization <20 Months Aged Out No longer eligible based on patient's age to complete this topic Rotavirus Vaccines Aged Out No longer eligible based on patient's age to complete this topic Procedures Procedure Name Priority Date/Time Associated Diagnosis Comments HGB A1C - SCREEN Routine 06/21/2019 3:33 PM CDT PCOS (polycystic ovarian syndrome) from Last 3 Months or Most Recently Relevant to Health Maintenance Results * HGB AlC - Screen (06/21/2019 3:33 PM CDT) Hemoglobin A1C 5.4 4.0 - 6.0 % [facility] Comment: Hemoglobin A1c reference range derived from ADA treatment goals for the diabetic patient. Blood specimen (specimen) 06/21/2019 3:33 PM CDT 06/21/2019 3:[address] Tristan MD BLOOD ORDERABLES Final Result Performing Organization Address City/State/[facility] Co de Phone Number [facility] [address] [place], [place] [id number] from Last 3 Months or Most Recently Relevant to Health Maintenance Insurance [facility] MEDICAID Advance Directives * Full Code (Latest Code Status on File) Date Activated Date Inactivated Comments 08/25/2019 10:21 AM 08/26/2019 6:32 PM * Full Code Date Activated Date Inactivated Comments 08/25/2019 6:31 AM 08/25/2019 10:21 AM * Full Code Date Activated Date Inactivated Comments 08/25/2019 5:55 AM 08/25/2019 6:31 AM Care Teams Financial Analyst Relationship Specialty Start Date End Date Pcp, None PCP - General Internal Medicine 07/04/22
--- OUTSIDE RECORDS SUMMARY | 2024-02-26 03:36 | XMS_ITS | Encounter Summary ---
Author Organization [facility] Address [address] [place] [address] Care Team Providers Care Inorganic Chemistry Professor Name Role Phone Ino Monteiro MD Unavailable [phone] Brandy Paz DO Primary Care Provider [phone] Shania Matthews E PLUSH WEAVER BLACK STUDIES PROFESSOR Unavailable [phone] Efren Mosley MD Unavailable [phone] Laurie Larson Unavailable Encounter Details Date Type Department Care Team (Late st Contact Info) Description 11/11/2023 MyC Medical Advice [facility] [place] [address] [facility] [address] [place] [address] Efren Mosley MD [address] [facility] [address] [place] [address] Social History Tobacco Use Types Packs/Day Years Used Date Smoking Tobacco: Never Passive Smoke Exposure: Never Smokeless Tobacco: Never Alcohol Use Standard Drinks/Week Comments Not Currently 0 (1 standard drink = 0.6 oz pur e alcohol) PHQ-2 Answer Date Recorded PHQ-2 Score 0 11/11/2023 Adolescent Education Answer Date Record ed Getting School Help Needed Not on file 12/26 Comments No Sex and Gender Information Value Date Recorded Sex Assigned at Not on file Legal Sex Female 10:47 AM CDT Gender Identity Not on file Sexual Orientation Not on file Travel History Travel Start Travel End [place] 01/08/2024 02/06/2024 documented as of this encounter Plan of Treatment Not on file documented as of this encounter Visit Diagnoses Not on filedocumented in this encounter Care Teams Inorganic Chemistry Professor Relationship Specialty Start Date End Date Brandy Paz DO [facility] [address] [place] [address] PCP - General Family Medicine 11/10/23 Ino Monteiro MD [address] [facility] [address] [place] [address] Assigned Surgical Provider 10/04/21 Shania Matthews, PLUSH WEAVER BLACK STUDIES PROFESSOR [address] [place] [address] Nurse Practitioner Cardiovascular Disease 11/24/23 Efren Mosley MD [address] [place], [place] [address] Assigned Heart and Vascular Provider 11/26/23 12/26/23 Laurie Larson PA [facility] [address] [place] [address] Assigned Heart and Vascular Provider 12/27/23 documented as of this encounter
--- OUTSIDE RECORDS SUMMARY | 2024-02-26 03:36 | XMS_ITS | Encounter Summary ---
Author Organization [place] Address [address] [place] [address] Care Team Providers Care Director Of Recruitment Name Role Phone Ino Monteiro MD Unavailable [phone] Brandy Paz DO Primary Care Provider [phone] Reason for Visit * Reason Onset Date Comments Clinic Care Coordination - Follow-up 11/16/2023 Outside films from [place] Encounter Details Date Type Department Care Team ([facility] st Contact Info) Description 11/16/2023 Telephone [facility] Heart [address] [place] [address] Asuncion Amos RN Clinic Care Coordination - Follow-up (Outside films from [place]) Social History Tobacco Use Types Packs/Day Years [...] file Travel History Travel Start Travel End [place] 01/08/2024 02/06/2024 documented as of this encounter Miscellaneous Notes * Telephone Encounter - Asuncion Amos RN - 11/16/2023 9:42 AM CDT Team has reached out to Ruslan to ask about obtaining the outside films for her CT. The patient let us know. The imaging was done at [place] emergency department at [facility] on 10/31. Edge Brusher has called to the [facility] Radiology department. The person I spoke with said that she has now pushed the CT image and rfp writer has confirmed with our Radiology team that it is now available for the MD to view in PACS. Routing to Dr. Mosley for review. Asuncion Amos RN on 11/16/2023 at 9:53 AM documented in this encounter Plan of Treatment Not on file documented as of this encounter Visit Diagnoses Not on filedocumented in this encounter Care Teams Director Of Recruitment Relationship Specialty Start Date End Date Brandy Paz DO [facility] [address] [place] [address] PCP - General Family Medicine 11/10/23 Ino Monteiro MD [address] [facility] [address] [place] [address] Assigned Surgical Provider 10/04/21 documented as of this encounter
--- OUTSIDE RECORDS SUMMARY | 2024-02-26 03:36 | XMS_ITS | Clinical Summary ---
Author Organization [place] Address [address] [place] [address] Care Team Providers Care Wall Taper Helper Name Role Phone Ino Monteiro MD Unavailable [phone] Brandy Paz DO Primary Care Provider [phone] Shania Matthews APRN PARTS ASSEMBLER Unavailable [phone] Laurie Larson Unavailable Allergies Active Allergy Reactions Criticality Noted Date Comments Penicillins Hives,Unknown Medium 04/09/2015 As a child Medications apixaban ANTICOAGULANT (ELIQUIS) 5 MG tablet Take 5 mg by mouth 2 times daily 11/10/19 24 Active famotidine (PEPCID) 20 MG tablet Take 20 mg by mouth 2 times daily Active atorvastatin (LIPITOR) 40 MG tablet Take 40 mg by mouth daily. 02/02/20 24 Active cyclobenzaprine (FLEXERIL) 5 MG tablet Take 5 mg by mouth as needed (Jaw pain). 12/20/19 24 Active metFORMIN (GLUCOPHAGE) 1000 MG tablet Take 1,000 mg by mouth 2 times daily (with meals). 01/27/20 24 Active medical cannabis (Patient's own supply) as needed (Sleep). (The purpose of this order is to document that the patient reports taking medical cannabis. This is not a prescription, and is not used to certify that the patient has a qualifying medical condition.) Active metFORMIN (GLUCOPHAGE) 500 MG tablet Take 500 mg by mouth 2 times daily (with meals) 03/28/20 23 024 Discontinued (Dose adjustment) triamcinolone (NASACORT ALLERGY 24HR CHILDREN) 55 MCG/ACT nasal aerosol Inhale into affected nostril(s). 024 Discontinued (Dose adjustment) HEMP OIL OR EXTRACT OR OTHER CBD CANNABINOID, NOT MEDICAL CANNABIS, nightly as needed. Discontinued (Therapy completed (No AVS)) atorvastatin (LIPITOR) 20 MG tabletIndications :Coronary artery calcification of grindstone artery,Elevated LDL cholesterol level,Hyperlipide sarah beth LDL goal <70 Take 2 tablets (40 mg) by mouth at bedtime. 180 tablet 3 11/24/19 24 Discontinued (Dose adjustment) Active Problems Problem Noted Date Diagnosed Date Morbid obesity 09/29/2021 Encounters Date Type Department Care Team Description 02/17/2024 MyC Medical Advice [address] [place] [phone] Efren Mosley MD 02/11/2024 9:45 AM GIVING OFFICER Lab [facility] [address] [place] [address] [address] [place] [phone] Coronary artery calcification of grindstone artery; Elevated LDL cholesterol level 02/11/2024 Travel 02/08/2024 3:30 PM GIVING OFFICER Office Visit [facility] [address] [place], [address] [place] [phone] Ino Monteiro MD Omphalitis in adult (Primary Dx) 02/08/2024 Travel 01/25/2024 Telephone [facility] [address] [place], [address] [place] [phone] Ino Monteiro MD Surgical Followup (Bleeding and smell form umbilical area) 12/08/2023 MyC Medical Advice [facility] [address] [facility] [address] [place] [phone] Laurie Larson PA 11/29/2023 4:00 PM CDT Office Visit [facility] [address] [place] [address] [address] [place] [phone] Laurie Larson PA Coronary artery calcification of grindstone artery (Primary Dx); Elevated LDL cholesterol level 11/29/2023 Travel 11/29/[address] [address] Laurie Larson PA Call Back ([facility] records) 11/28/2023 Travel from Last 3 Months Social History Tobacco Use Types Packs/Day Years Used Date Smoking Tobacco: Never Passive Smoke Exposure: Never Smokeless Tobacco: Never Tobacco Cessation:Counseling Given: Yes Alcohol Use Standard Drinks/Week Comments Not Currently [...] file Travel History Travel Start Travel End [place] 01/08/2024 02/06/2024 Last Filed Vital Signs Vital Sign Reading Time Taken Comments Blood Pressure 114/76 02/08/2024 3:29 PM GIVING OFFICER Pulse 63 02/08/2024 3:29 PM GIVING OFFICER Temperature 36.2 C (97.1 F) 10/26/2022 2:50 PM CDT Respiratory Rate 16 11/23/2023 1:14 PM CDT Oxygen Saturation 99% 02/08/2024 3:29 PM GIVING OFFICER Inhaled Oxygen Concentration - - Weight 126.1 kg (278 lb) 02/08/2024 3:29 PM GIVING OFFICER Height 167.6 cm (5' 6) 02/08/2024 3:29 PM GIVING OFFICER Body Mass Index 44.87 02/08/2024 3:29 PM GIVING OFFICER Plan of Treatment Health Maintenance Due Date Last Done Comments ADVANCE CARE PLANNING 1991 ANNUAL REVIEW OF HM ORDERS 1991 Pneumococcal Vaccine: Pediatrics (0 to 5 Years) and At-Risk Patients (6 to 64 Years) (1 of 2 - PCV) 1997 HIV SCREENING 2006 HEPATITIS C SCREENING 2009 PAP 05/06/2024 05/06/2021 YEARLY PREVENTIVE VISIT 12/16/2024 12/17/2023, 07/15 LIPID 02/10/2025 02/11/2024, 11/13/2023 DTAP/TDAP/TD IMMUNIZATION (8 - Td or Tdap) 01/21/2028 01/20/2018, 01/21/2009, 11/15/1996, Additional history exists RSV VACCINE (1 - 1-dose 75+ series) 2066 HEPATITIS B IMMUNIZATION Completed 998, 01/04/1997, 11/15/1996 PHQ-2 (once per calendar year) Completed 11/11/2023 INFLUENZA VACCINE Completed 12/17/2023, , 06/17/2023, Additional history exists COVID-19 Vaccine Completed 01/03/2024, , 02/12/2021, Additional history exists HPV IMMUNIZATION Aged Out No longer e ligible based on patient's age to complete this topic MENINGITIS IMMUNIZATION Aged Out No l onger eligible based on patient's age to complete this topic RSV MONOCLONAL ANTIBODY Aged Out No l onger eligible based on patient's age to complete this topic Medical Devices Implanted Type Area Pricing/Signage Team Member Device Identifier Shelf Expiration Date Model / Serial / Lot Mesh Ventralight St System 4x6 Ellipse [id number] - [id number] Implanted:Qty: 1 on 10/26/2022 by Ino Monteiro MD at [facility] Mesh N/A: Abdomen CR [employer] [id number] 06/02/2024 [id number] / / [id number] Procedures Procedure Name Priority Date/Time Associated Diagnosis Comments LIPID REFLEX TO DIRECT LDL PANEL Routine 02/11/2024 9:47 AM GIVING OFFICER Coronary artery calcification of grindstone artery Elevated LDL cholesterol level from Last 3 Months Results * (ABNORMAL) Lipid panel reflex to direct LDL Fasting (02/11/2024 9:47 AM GIVING OFFICER) Cholesterol 108 <200 mg/dL 02/11/2024 5:36 PM GIVING OFFICER [facility] Triglycerides 100 <150 mg/dL 02/11/2024 5:36 PM GIVING OFFICER [facility] Direct Measure HDL 36(L) >=50 mg/dL 2023 5:36 PM GIVING OFFICER [facility] LDL Cholesterol Calculated 52 <100 mg/dL 02/11/2024 5:36 PM GIVING OFFICER [facility] Non HDL Cholesterol 72 <130 mg/dL 02/11/2024 5:36 PM GIVING OFFICER [facility] Patient Fasting > 8hrs? Yes 02/11/2024 5:36 PM GIVING OFFICER [facility] Blood STRUCTURE OF LEFT UPPER LIMB / Unknown Venipuncture / Unknown 02/11/2024 9:47 AM GIVING OFFICER 02/11/2024 9:51 AM GIVING OFFICER Narrative [facility] - 02/11/2024 5:36 PM GIVING OFFICER Cholesterol Desirable: < 200 mg/dL Borderline High: 200 - 239 mg/dL High: >= 240 mg/dL Triglycerides Normal: < 150 mg/dL Borderline High: 150 - 199 mg/dL High: 200-499 mg/dL Very High: >= 500 mg/dL Direct Measure HDL Female: >= 50 mg/dL Male: >= 40 mg/dL LDL Cholesterol Desirable: < 100 mg/dL Above Desirable: 100 - 129 mg/dL Borderline High: 130 - 159 mg/dL High: 160 - 189 mg/dL Very High: >= 190 mg/dL Non HDL Cholesterol Desirable: < 130 mg/dL Above Desirable: 130 - 159 mg/dL Borderline High: 160 - 189 mg/dL High: 190 - 219 mg/dL Very High: >= 220 mg/dL us Laurie [facility] - BLOOD ORDERABLES Final Res ult [facility] [address] [facility] [place] [address], [facility] [address] Lab (1st floor, no room number) [place] [address], [facility] from Last 3 Months Insurance * Guarantor: Reina [employer] Account Type Relation to Patient Date of Phone Billing Address Personal/Family Self 1990 none (Work) [address] [place] [address] MED[employer] CHO[employer] Member Subscriber Plan / Payer (Ef fective 2022-Present) Name:REINA BLODO Relation to Subscriber:Spouse Name:RITCHIE BLOOD Date of :1992 (Home) Address: [address] [place] [address] Payer ID:[id number] (NAIC) Type:Indemnity Address: [address] [place] [phone] * Guarantor: [employer] Account Type Relation to Patient Date of Phone Billing Address Personal/Family Self 1990 [address] [place] [address] MED[employer] CHO[employer] Member Subscriber Plan / Payer (Ef fective 2022-Present) Name:REINA BLOOD Relation to Subscriber:Spouse Name:RITCHIE BLOOD Date of :1992 (Home) Address: [address] [place] [address] Payer ID:[id number] (NAIC) Type:Indemnity Address: [address] [place] [phone] Care Teams Wall Taper Helper Relationship Specialty Start Date End Date Brandy Paz DO [address] [address] PCP - General Family Medicine 11/10/23 Ino Monteiro MD [address] [facility] [address] [place], [place] [phone] Assigned Surgical Provider 10/04/21 Shania Matthews APRN PARTS ASSEMBLER [address] [place] [address] Nurse Practitioner Cardiovascular Disease 11/24/23 Laurie Larson PA [facility] [address] [place] [address] Assigned Heart and Vascular Provider 12/27/23
--- OUTSIDE RECORDS SUMMARY | 2024-02-26 03:36 | XMS_ITS | Encounter Summary ---
Author Organization [facility] Address [address] [place] [id number] Care Team Providers Care Process Control Supervisor Name Role Phone Ino Monteiro MD Unavailable [phone] Brandy Paz DO Primary Care Provider [phone] Shania Matthews APRN [employer]GER Unavailable [phone] Laurie Larson Unavailable Encounter Details Date Type Department Care Team (Latest Contact Info) Description 02/08/2024 Travel Social History Tobacco Use Types Packs/Day Years [...] file Travel History Travel Start Travel End [place] 01/08/2024 02/06/2024 documented as of this encounter Plan of Treatment Not on file documented as of this encounter Visit Diagnoses Not on filedocumented in this encounter Care Teams Process Control Supervisor Relationship Specialty Start Date End Date Brandy Paz DO [address] [id number] PCP - General Family Medicine 11/10/23 Ino Monteiro MD [address] [place] [address] Assigned Surgical Provider 10/04/21 Shania Matthews APRN [employer] MANAGER [address] [place], [place] [id number] Nurse Practitioner Cardiovascular Disease 11/24/23 Laurie Larson PA [facility] [address] [place] [id number] Assigned Heart and Vascular Provider 12/27/23 documented as of this encounter
--- OUTSIDE RECORDS SUMMARY | 2024-02-26 03:36 | XMS_ITS | Clinical Summary ---
Author Organization [employer] [facility] [employer] [facility] Address [place], [place] [address] Care Team Providers Care Help Desk Team Leader Name Role Phone Giovana Barnes DO Primary Care Provider [phone] Allergies Active Allergy Reactions Criticality Noted Date Comments Penicillins *Unknown - Follow up needed,Hives Medium 0 04/09/2015 As a child Medications Medication Sig Dispensed Refills Start Date End Date Status famotidine (PEPCID) 20 mg tablet Take 20 mg by mouth two times daily. Active atorvastatin (LIPITOR) 40 mg tabletIndications:Cor onary artery calcification seen on CT scan Take 1 Tablet (40 mg) by mouth at bedtime. 90 Tablet 3 12/15/2023 Active apixaban (ELIQUIS) 5 mg tabletIndications:Acu te deep vein thrombosis (DVT) of left lower extremity, unspecified vein (HC) Take 1 Tablet (5 mg) by mouth two times daily. 60 Tablet 01/19/2024 Active metFORMIN (GLUCOPHAGE) 1,000 mg tabletIndications:Pedro ycystic ovary syndrome,Class 3 severe obesity with body mass index (BMI) of 40.0 to 44.9 in adult, unspecified obesity type, unspecified whether serious comorbidity present (HC),Premenstrual dysphoric disorder Take 1 Tablet (1,000 mg) by mouth two times daily with meals. 180 Tablet 3 01/27/2024 Active cyclobenzaprine (FLEXERIL) 5 mg tablet Take 5 mg by mouth. 12/20/2023 Active methylPREDNISolone (MEDROL DOSEPAK) 4 mg tablet As directed 4 mg. 02/20/2024 Active atorvastatin (LIPITOR) 40 mg tabletIndications:ASC VD (arteriosclerotic cardiovascular disease) Take 1 Tablet (40 mg) by mouth at bedtime for 5 days. 5 Tablet 02/02/2024 02/07/2024 Active Problems Problem Noted Date Diagnosed Date ASCVD (arteriosclerotic cardiovascular disease) 12/17/2023 MERRY (obstructive sleep apnea) 12/17/2023 Overview (12/17/2023): Currently not using CPAP Stage 1 hypertension 12/17/2023 Bilateral temporomandibular joint pain Deep venous thrombosis 10/25/2023 ADHD 08/07/2023 Morbid obesity 09/29/2021 Premenstrual dysphoric disorder 01/30/2021 Overview (07/28/2023): Suspected with therapist input due to symptoms that are cyclical and resolve once menstrual period is completed. Symptoms primarily significant anxiety, significant disruption to sleep, irritability leading to relationship stress. Prozac started as a result with mild improvement noted. Polycystic ovary syndrome 10/24/2020 Overview (07/28/2023): Did need use of Metformin medication for ovulation induction/. Reports meeting 2/3 [place] Criteria with previous assessments: hirsutism, menstrual irregularity, no polycystic appearing ovaries with ultrasound per patient report Atypical squamous cells of u ndetermined significance (ASCUS) on Papanicolaou smear of cervix 10/24/2020 Overview (07/28/2023): 2017 and again in 2019 per outside record review, neg HPV reflex testing done in 2019. Normal with negative HPV in 2021. Anterior tibialis tendinitis of right lower extr emity 10/24/2020 Overview (07/28/2023): Last Assessment & Plan: ? Patient was seen, evaluated, and treated. ? Discussed condition and treatment options with patient. All questions were answered. ? Ordered, reviewed, and discussed results of x-rays with patient. o Independent interpretation of radiographs: no acute osseous abnormality. ? Rx for medrol dose pack. ? Discussed physical therapy or use of CAM boot in the future if pain does not improve. ? RTC PRN. Anxiety 06/27/2020 Overview (07/28/2023): [place] to be hormonal, ?PMDD. Working with therapist now. Prozac, 20 mg daily has been partially helpful for symptoms control. Initiated an OCP on 01/2021, continuously cycled, for menstrual hormonal control as a next step. Resolved Problems Problem Noted Date Diagnosed Date Resolved Date Umbilical hernia 10/24/2020 12/17/2023 Previous delivery a ffecting 02/03/2019 10/25/2023 Hx of preeclampsia, prior pr egnancy, currently , first trimester 02/03/201910/04 Encounters Date Type Department Care Team Description 02/25/2024 12:[address] CAR INSPECTOR Office Visit [facility] [address] [place] [address] Giovana Barnes, DO Foot Problem (right foot pain for 1 week, has been seen at [facility] for this, gout testing was normal. Would like order for MRI) 02/25/2024 Travel 02/23/2024 Telephone [facility] [address] [place] [address] Giovana Barnes, DO Follow Up 02/16/2024 10:[address] CAR INSPECTOR Office Visit [facility] [address] [place] [address] Giovana Barnes, DO URI (Sinus pain and tenderness, ongoing 3-4 weeks. Tylenol offers some relief and nasacort) 02/16/2024 Travel 02/11/2024 2:[address] CAR INSPECTOR - 02/11/2024 11:[address] CAR INSPECTOR Hospital Encounter [facility] [address] [facility] [place] [address] Jessie Anglin NP Pain and swelling of right lower leg 02/11/2024 1:[address] CAR INSPECTOR Office Visit [facility] [address] [place] [address] Jessie Anglin, DEIRDRE Leg Pain/problem 02/11/2024 Travel 02/01/[address] [address] Dorothy Rueda NP Appointment 01/27/2024 1:10 PM CDT Office Visit [address] [address] Giovana Barnes, Weight (Has been working on a plant-based diet and caloric deficit. Feels weight is at a plateau. Would like to talk about other options) 01/26/2024 Travel 01/03/2024 12:45 PM CDT Nurse/Clinic Staff Only [address] [address] Immunization/Injectio n 01/03/2024 Travel 12/17/2023 7:55 AM CDT Office Visit [address] [address] Giovana Barnes, Physical 12/17/2023 Travel 12/07/2023 Telephone [facility] [address] [place] [address] Giovana Barnes, Prior Authorization (ECHO STRESS TREADMILL DENIED, PEER TO PEER NEEDED) 11/29/2023 9:00 AM CDT Office Visit [facility] [address] [place] [phone] Cardiovascular Diagnostic Testing (Stress echo) 11/29/2023 Travel 11/26/2023 9:10 AM CDT Office Visit [facility] [address] [place] [address] Giovana Barnes DO Anxiety (would like prn medication to help increased situational anxiety/ to help sleep ) from Last 3 Months Immunizations Name Administration Dates Next Due COVID-19 VACCINE SPIKEVAX (M ODERNA 50MCG/0.5ML) 12YO+ PFS 01/03/2024 DTP 10/10/1992, 2,1991,1991 DTaP 11/15/1996 Dtap-5 Pertussis Antigens 11/15/1996,11/1992,01/11/1992,1991,1991 HIB PRP-T (ActHIB,Hiberix) 10/10/1992,,1991,1991 Hepatitis B (Peds) 10/03/1997,01/04/1997, 997 INFLUENZA, IIV3 PF (AGE >= 6 MO) 12/17/2023 Inactivated Polio Vaccine 11/15/1996,11/1992,1991,1991 Influenza Virus, Unspecified 12/05/2023, 12/04/2022,01/08/2020,2018 Influenza, IIV4 06/17/2023, 2,04/17/2021,2020 MMR 11/15/1996,10/10/1992 Oral Polio Vaccine 11/15/1996, 3,1991,1991 Tdap 01/20/2018,01/21/2009 Family History Medical History Relation Name Comments OCD Brother Liver disease Father NAFLD Heart Disease Maternal Grandfather stent Endometrial cancer Maternal Grandmother ADD / ADHD Mother Other Mother muscular disord er Brain Aneurysm Paternal Grandfather Diabetes Paternal Grandmother Hyperlipidemia Sister Relation Name Status Comments Brother Alive Father Alive Maternal Grandfather Alive Maternal Grandmother Alive Mother Alive Paternal Grandfather Paternal Grandmother Sister Alive Social History Tobacco Use Types Packs/Day Years Used Date Smoking Tobacco: Never Smokeless Tobacco: Never Tobacco Cessation:Counseling Given: Not Answered Alcohol Use Standard Drinks/Week Comments Never 0 (1 standard drink = 0.6 oz pur e alcohol) PHQ-2 Answer Date Recorded PHQ-2 TOTAL SCORE 2 11/24/2023 Sex and Gender Information Value Date Recorded Sex Assigned at Not on file Gender Identity Not on file Sexual Orientation Not on file Obstetrics History Para Term AB IAB SAB Ectopic Multiple Livin g Live Births 2 2 2 2 2 Date Outcome GA Total Labor Labor/2nd/3rd Weight Sex Type Anes PTL Layla A1 A5 Name Clin 10/17/2 018 Term F CS-LT ranv Livin g Complications:None,Pre-eclam psia 020 Term 39w 0d 0h 05m 0h 05m 3.57 kg (7 lb 13.9 oz) F CS-Un spec N Livin g 9 9 REINA BENAVIDEZ WALDEMAR Xenia F Lane Tristan MD Complications:None Delivery Location:[facility]) Last Filed Vital Signs Vital Sign Reading Time Taken Comments Blood Pressure 129/84 02/25/2024 12:[address] CAR INSPECTOR Pulse 70 02/25/2024 12:[address] CAR INSPECTOR Temperature 36.7 C (98.1 F) 02/16/2024 10:[address] CAR INSPECTOR Respiratory Rate 16 02/11/2024 1:[address] CAR INSPECTOR Oxygen Saturation 99% 02/11/2024 1:[address] CAR INSPECTOR Inhaled Oxygen Concentration - - Weight 124.3 kg (274 lb) 02/16/2024 10:[address] CAR INSPECTOR Height 169 cm (5' 6.54) 12/17/2023 8:04 AM CDT Body Mass Index 43.52 12/17/2023 8:04 AM CDT Plan of Treatment Upcoming Encounters Date Type Department Care Team (Late st Contact Info) Description 02/28/2024 11:[address] CAR INSPECTOR Phone Office Visit [facility] [address] [place] [address] Rohini Shepherd MD [address] [place] [address] Health Maintenance Due Date Last Done Comments HIV for age 15-65 2006 Hepatitis C screening for age 18-79 2009 Depression screening for age 12+ 11/25/2024 11/26/2023, 11/25/2023, 11/25/2023, Additional history exists BMI (ht and wt on same day) for age 18+ 12/16/2024 12/17/2023, 09/27/2023, 07/28/2023 Pap test for age 21-65 05/06/2026 05/06/2021, 2021 Tetanus booster 01/21/2028 01/20/2018, 01/21/2009 Tdap Completed 01/20/2018, 01/21/2009 Influenza for age 9-49 Completed 4, 12/05/2023, 06/17/2023, Additional history exists COVID-19 vaccine series Completed 01/03/20 24, 06/17/2023, 02/12/2021, Additional history exists Pneumococcal series for age 6-64 Aged Out No longer eligible based on patient's age to complete this topic Procedures Procedure Name Priority Date/Time Associated Diagnosis Comments US VENOUS LOWER EXTREMITY RIGHT STAT 02/11/2024 3:[address] CAR INSPECTOR Pain and swelling of right lower leg COVID-19 MOLECULAR Routine 02/11/2024 2: [address] CAR INSPECTOR Sore throat STREP A PCR STAT 02/11/2024 2:[address] CAR INSPECTOR Sore throat THROAT RAPID STREP A WITH REFLEX STAT 02/11/2024 2:[address] CAR INSPECTOR Sore throat ECHO STRESS EXERCISE W CONTRAST W COLOR Routine 11/29/2023 10:08 AM CDT Coronary artery calcification seen on CT scan [place] (dyspnea on exertion) HPV HIGH RISK Routine 05/06/2021 1:[address] CAR INSPECTOR from Last 3 Months or Most Recently Relevant to Health Maintenance Results * US VENOUS LOWER EXTREMITY RIGHT (02/11/2024 3:[address] CAR INSPECTOR) Anatomical Region Laterality Modality LEGS, LEG R, Abdomen Ultrasound 02/11/2024 4:[address] CAR INSPECTOR Impressions 02/11/2024 4:[address] CAR INSPECTOR Normal left lower extremity venous ultrasound, no sign of deep venous thrombosis. Dictated by Angel Cota MD @ 02/11/2024 4:12:43 PM (Electronically Signed) Narrative 02/11/2024 4:[address] CAR INSPECTOR For Patients: As a result of the Cures Act, medical imaging exams and procedure reports are released immediately into your electronic medical record. You may view this report before your referring provider. If you have questions, please contact your health care provider. INDICATION: Leg pain and swelling TECHNIQUE: Ultrasound venous duplex lower left extremity. Compression venous exam was performed using okeefe-scale, color Doppler, and spectral Doppler analysis. COMPARISON: None. FINDINGS: Sonographic imaging demonstrates the left common femoral, deep femoral, superficial femoral, popliteal, posterior tibial and greater saphenous and the contralateral right common femoral veins to be fully compressible with normal color Doppler blood flow. Procedure Note Angel Cota MD - 02/11/2024 For Patients: As a result of the Cures Act, medical imagingexams and procedure reports are released immediately into your electronicmedical record. You may view this report before your referring provider.If you have questions, please contact your health care provider. INDICATION: Leg pain and swelling TECHNIQUE: Ultrasound venous duplex lower left extremity. Compression venous examwas performed using okeefe-scale, color Doppler, and spectral Doppleranalysis. COMPARISON: None. FINDINGS: Sonographic imaging demonstrates the left common femoral, deep femoral,superficial femoral, popliteal, posterior tibial and greater saphenous andthe contralateral right common femoral veins to be fully compressible withnormal color Doppler blood flow. IMPRESSION: Normal left lower extremity venous ultrasound, no sign of deep venousthrombosis. Dictated by Angel Cota MD @ 02/11/2024 4:12:43 PM (Electronically Signed) Jessie Anglin NP US * COVID-19 MOLECULAR (02/11/2024 2:[address] CAR INSPECTOR) COVID 19 [place] MOLECULAR Negative Negative 02/12/2024 5:[address] CAR INSPECTOR [facility] [employer] LABORAT[facility]-CE NTRAL LABORATORY TESTING LABORATORY [facility] Laboratory 02/12/2024 5:[address] CAR INSPECTOR [facility]- NTRAL LABORATORY Comment:Specimen submitted t o [facility] Laboratory for testing. Other SPECIMEN FROM NASOPHARYNGEAL STRUCTURE / Unknown Non-Blood / Unknown 02/11/2024 2:[address] CAR INSPECTOR 02/11/2024 3:[address] CAR INSPECTOR Narrative [facility]AL LABORATORY - 02/12/2024 5:[address] CAR INSPECTOR All PCR tests are subject to false negative result due to variability in viral load and collection technique. A negative result does not rule out a SARS-CoV-2 infection. Clinical correlation required. Jessie Anglin SMALL BATTERY PLATE ASSEMBLER MICROBIOLOGY Performing Organization Address [facility] Co de Phone Number [facility] [address] [place] [address], * STREP A PCR (02/11/2024 2:[address] CAR INSPECTOR) GROUP A STREP Negative 02/12/2024 2:[address] CAR INSPECTOR [facility] TRAL LABORATORY Throat SPECIMEN FROM THROAT / Unknown Non-Blood / Unknown 02/11/2024 2:[address] CAR INSPECTOR 02/11/2024 2:[address] CAR INSPECTOR Fela Raymond NP MICROBIOLOGY Performing Organization Address [facility] Co de Phone Number [facility] [address] [place] [address], [place] * THROAT RAPID STREP A WITH REFLEX (02/11/2024 2:[address] CAR INSPECTOR) STREP A ANTIGEN Negative 02/11/2024 2:[address] CAR INSPECTOR [facility] Comment:PCR to follow. Throat SPECIMEN FROM THROAT / Unknown Non-Blood / Unknown 02/11/2024 2:[address] CAR INSPECTOR 02/11/2024 2:[address] CAR INSPECTOR Fela Raymond NP MICROBIOLOGY Performing Organization Address [facility] Co de Phone Number [facility] [address] [place] [address] * ECHO STRESS EXERCISE W CONTRAST W COLOR (11/29/2023 10:08 AM CDT) LVEDD 4.6 cm EJECTION FRACTION 55 - 60% Anatomical Region Laterality Modality Ultrasound 11/29/2023 9:33 AM CDT Narrative 11/29/2023 10:26 AM CDT STRESS ECHOCARDIOGRAM REINA BLOOD : 1990 33 years Study Date: 11/29/2023 9:33:34 AM Gender: F BP: 132/72 mmHg Height: 168.00 cm BSA: 2.32 m Weight: 128.00 kg Tech: R Referring MD: GIOVANA BARNES Site: [facility] Reading Location: MOBILE OP Patient Location: Outpatient. Procedure: Stress Echo, Color Doppler and Contrast. Mega stress echo. Indication for study: dyspnea on exertion Cardiac Rhythm: Regular.Study quality: Fair. Imaging limitations: This study was subject to imaging limitations due to a prominent lung artifact and body habitus. Final Impressions: 1. Post stress, normal left ventricular size, normal global systolic function with an estimated EF of 70 to 75%. 2. Maximum stress test with 85.4% of age predicted maximum heart rate achieved. 3. Negative stress echo for ischemia. 4. During stress exam the patient developed shortness of breath and fatigue. 5. Right ventricular cavity size is normal, global systolic RV function is normal. 6. Echo contrast was administered to enhance visualization of all left ventricular segments. 7. No pericardial effusion. 8. See separate report for EKG interpretation. 9. PA pressure could not be estimated. Stress Data: HR Systolic Diastolic Time Duration Minutes Seconds Baseline 63 bpm 132 72 mmHg 7 :19 Peak 160 bpm 154 84 mmHg Max Pred HR 187 % of Max 85% Double Product [id number] Echo Findings:This is a negative stress echo test for ischemia. Post stress, normal left ventricular size, normal global systolic function with an estimated EF of 70 to 75%. LV regional wall motion abnormalities are not present post exercise. EKG:See separate report for EKG interpretation. Exam Protocol:The patient presents with no significant symptoms at baseline. The patient exercised 7 min 19 sec to stage III according to the Mega stress echo protocol. Test terminated due to shortness of breath and fatigue. 10.2 METS were achieved. The patient achieved a heart rate of 160 bpm which is 85.4% of maximum predicted heart rate. Maximum systolic blood pressure was 154 [place] [address]. Maximum stress test with 85.4% of age predicted maximum heart rate achieved. The blood pressure response was normal. The patient developed shortness of breath and fatigue during the stress exam. Symptoms resolved with rest. Low (less than 1% annual mortality rate) non invasive risk stratification. Chamber Sizes and Function Normal left ventricular size, normal global systolic function with an estimated EF of 55 - 60%. LV regional wall motion abnormalities are not present. Right ventricular cavity size is normal, global systolic RV function is normal. RV wall thickness is normal. Masses, Effusion, Shunts There is no pericardial effusion. MEASUREMENTS AND CALCULATIONS 2-D Measurements and LV Function: LVID (d) 4.6 cm LV FS% (2D) 37 % LVID (s) 2.9 cm LVOT diameter 2.1 cm IVS (d) 1.0 cm HR 63 bpm LVPW (d) 0.9 cm RV Max 4C (d) 2.6 cm Ao Sinus 3.[address] junct 2.5 cm Asc Ao 3.0 cm LA 3.3 cm Contrast documentation: 4ml ml diluted Definity, lot #[id number], [facility]# [id number] was administered peripherally to enhance visualization of all left ventricular segments. . This study was interpreted by an [facility] accredited facility. Final Procedure Note Good Batista MD - 11/29/2023 STRESS ECHOCARDIOGRAM REINA BLOOD : 1990 33 years Study Date: 11/29/2023 9:33:34 AM Gender: F BP: 132/72 mmHg Height: 168.00 cm BSA: 2.32 m Weight: 128.00 kg Tech: [facility] Referring MD: GIOVANA BARNES Site: [facility] Reading Location: MOBILE OP Patient Location: Outpatient. Procedure: Stress Echo, Color Doppler and Contrast. Mega stress echo. Indication for study: dyspnea on exertion Cardiac Rhythm: Regular.Study quality: Fair. Imaging limitations: This study was subject to imaging limitations due toa prominent lung artifact and body habitus. Final Impressions: 1. Post stress, normal left ventricular size, normal global systolicfunction with an estimated EF of 70 to 75%. 2. Maximum stress test with 85.4% of age predicted maximum heart rateachieved. 3. Negative stress echo for ischemia. 4. During stress exam the patient developed shortness of breath andfatigue. 5. Right ventricular cavity size is normal, global systolic RV functionis normal. 6. Echo contrast was administered to enhance visualization of all leftventricular segments. 7. No pericardial effusion. 8. See separate report for EKG interpretation. 9. PA pressure could not be estimated. Stress Data: HR Systolic Diastolic Time Duration Minutes Seconds Baseline 63 bpm 132 72 mmHg 7 :19 Peak 160 bpm 154 84 mmHg Max Pred HR 187 % of Max 85% Double Product [id number] Echo Findings:This is a negative stress echo test for ischemia. Poststress, normal left ventricular size, normal global systolic function withan estimated EF of 70 to 75%. LV regional wall motion abnormalities arenot present post exercise. EKG:See separate report for EKG interpretation. Exam Protocol:The patient presents with no significant symptoms atbaseline. The patient exercised 7 min 19 sec to stage III according to theArrington stress echo protocol. Test terminated due to shortness of breath andfatigue. 10.2 METS were achieved. The patient achieved a heart rate of 160bpm which is 85.4% of maximum predicted heart rate. Maximum systolic bloodpressure was 154 [place] [address]. Maximumstress test with 85.4% of age predicted maximum heart rate achieved. Theblood pressure response was normal. The patient developed shortness ofbreath and fatigue during the stress exam. Symptoms resolved with rest.Low (less than 1% annual mortality rate) non invasive riskstratification. Chamber Sizes and Function Normal left ventricular size, normal global systolic function with anestimated EF of 55 - 60%. LV regional wall motion abnormalities are notpresent. Right ventricular cavity size is normal, global systolic RVfunction is normal. RV wall thickness is normal. Masses, Effusion, Shunts There is no pericardial effusion. MEASUREMENTS AND CALCULATIONS 2-D Measurements and LV Function: LVID (d) 4.6 cm LV FS% (2D) 37 % LVID (s) 2.9 cm LVOT diameter 2.1 cm IVS (d) 1.0 cm HR 63 bpm LVPW (d) 0.9 cm RV Max 4C (d) 2.6 cm Ao Sinus 3.[address] junct 2.5 cm Asc Ao 3.0 cm LA 3.3 cm Contrast documentation: 4ml ml diluted Definity, lot #[id number], [facility]#[id number] was administered peripherally to enhance visualization of allleft ventricular segments. . This study was interpreted by an [facility] accredited facility. Final Giovana Barnes DO ECHO ORD * HPV HIGH RISK (05/06/2021 1:[address] CAR INSPECTOR) TYPE 16 Negative Negative 05/08/2021 4:[address] CAR INSPECTOR [facility] TRAL LABORATORY TYPE 18 Negative Negative 05/08/2021 4:[address] CAR INSPECTOR [facility] TRAL LABORATORY OTHER HIGH RISK TYPES Negative Negative 05/08/2021 4:[address] CAR INSPECTOR [facility] LABORAT[facility] Other (Cervical/Vagina l) 05/06/2021 1:[address] CAR INSPECTOR 05/07/2021 7:[address] CAR INSPECTOR Narrative [facility] - 05/08/2021 4:[address] CAR INSPECTOR HPV types 16, 18, 31, 33, 35, 39, 45, 51, 52, 56, 58, 59, 66 and 68 DNA were undetectable or below the pre-set threshold. Methodology: Mar Pasquale 4800 HPV Test Mahsa Whyte MD MICROBIOLOGY [facility] [address] [place] [address], from Last 3 Months or Most Recently Relevant to Health Maintenance Care Teams Help Desk Team Leader Relationship Specialty Start Date End Date Giovana Barnes DO [address] [place] [id number] PCP - General Family Practice 11/08/23
--- OUTSIDE RECORDS SUMMARY | 2024-02-26 03:36 | XMS_ITS | Continuity of Care Document ---
Author Organization [facility], [place] Address [address] [place] [address] Care Team Providers Care Instructor Of Nursing Name Role Phone GIOVANA BARNES Primary Care Provider [phone] CRISTIAN ALLRED Referring Provider RODNEY PEREZ Physical Therapist Assessment Encounter Date Assessment Date Assessment LastModified by Organization Details LastModified Time 01/06/2024 01/06/2024 Patient was seen today for follow-up and insertion of a mandibular stabilization intraoral appliance. Diagnosis and contributing factors were reviewed. Questions were answered. Self-management and home exercise techniques were reviewed. Today the intraoral appliance was fit to patient comfort. Specifically, no adjustments were necessary. Instructions on proper use and care were discussed/reviewed both written and verbally. I suggested that (s)he uses the appliance as a retraining tool to aid in relaxing their jaw muscles - put it in 20-30 minutes before bed time, keeping their jaw in a relaxed balanced position, simultaneously applying a heat compress on the jaw as a way to help with jaw relaxation. Potential side effects were reviewed. The patient was advised to discontinue oral appliance use should they experience untoward side effects or be unable to return for follow-up care. The patient was advised to return in 3-4 weeks to reassess their progress and continue their treatment plan as previously outlined. In addition to oral appliance insertion today we review home self-care strategies as previously discussed. Ruslan continues to improve gradually. I reinforced self care, focussing on oral habit and stress management. I reinforced self care. We discussed additional treatment options including rehabilitative treatment with physical therapy. Ruslan will connect with [facility] and schedule in the upcoming weeks. I recommended discontinuing cyclobenzaprine at this time due to new medication recommendation with Sertraline. I answered questions on the titration, mechanism and potential interactions. Since cyclobenzaprine helps with symptom management, it may be reasonable to consider restarting it in follow up after Sertraline dose has been optimised. Ruslan agrees with the plan. She will trial Melatonin for sleep onset. I suggested exploring stress management strategies. Due to minimal response, trigger point injections were discontinued today. I recommended monitoring symptoms with the intraoral appliance. I recommended follow up in 4 weeks. History today was obtained from the patient. The patient has 5+ diagnoses which we are addressing. Their symptoms are improving. This case is moderate complexity because of multiple diagnoses with chronic symptoms. Risk of complications include disease/symptom progression were discussed. Today time spent may have included a review of past records, history taking, review of diagnoses, contributing factors, treatment plan, diagnostic testing, prognosis, expectations, risks and complications of treatment/no treatment, discussions with other providers and completing documentation was 35 minutes. Not available 01/07/2024 09:32:09 Plan of Treatment Reminders Order Date Submit Date Provider Last Modified By Organization Details Last Modified Time Details Appointments None record ed. Lab None record ed. Referral None record ed. Procedures None record ed. Surgeries None record ed. Imaging None record ed. Medication Orders None record ed. Patient TargetsNo targets recorded. Patient InstructionsNo instructions recorded. Reason for Referral None Reported. 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 LI JORDAN BDS,MS [address], [place], [address], [place] [facility] 4 10:37:02 Bilateral temporoma ndibular joint pain 255222347871 [address] Active 2023 LIHO JORDAN BDS,MS [address], [place], [address], [place] [facility] 4 10:36:24 Bilateral referred otalgia of ears 070402876506 9106 Active 2023 SARAH SHEEHANSudarshan,MS [address], [place], [address], [facility] 4 10:36:24 Sleep related bruxism 472534926 Active 2023 LIHO JORDAN BDS,MS [address], [place], [address], [facility] 4 10:36:24 Problem Notes None recorded. Procedures Surgical History Date Name Laterality Status Provider Name and Address Organization Details Recorded Time 01/06/20 24 Oral appliance completed Karen Nassar [facility] 01/05/2024 11:47:33 12/17/19 24 Trigger point injection completed LI JORDAN BDS,MS [address], [place], [address], [facility] 12/21/2023 14:25:30 Cholecystectomy completed Judy Poon [facility] 12/01/2023 16:35:34 section completed Judy Poon [facility] 12/01/2023 16:35:53 Tubal Ligation completed Judy Poon [facility] 12/01/2023 16:36:02 Imaging Results None recorded. Procedure Notes None recorded. Medical Equipment None Reported. Allergies Allergen ID Allergen Name Allergen Category Reaction Reaction Severity Criticality Documentation Date Start Date Code Code System Note Provider Name and Address Organization Details Recorded Time 52653 Medicinal product containin g penicilli n and acting as antibacte rial agent (product) medicatio n hives moderate Not available 12/01/20231993 97893 05 [facility]ED [facility] 16:04:17 Medications Name Sig Start Date Stop Date Status Note LastModified by Organization Details LastModified Time medroxyprog esterone 10 mg tablet TAKE 1 TABLET BY MOUTH EVERY DAY 11/22 completed Not Available Not Available Not Available atorvastati n 40 mg tablet daily active Not Available Not Available Not Available metformin 500 mg tablet TAKE 1 TABLET BY MOUTH TWICE DAILY WITH MEALS active Not Available Not Available No t Available atorvastati n 20 mg tablet Take 1 tablet every day by oral route. 01/05 completed Not Available Not Available Not Available azithromyci n 250 mg tablet 11/22 completed Not Available Not Available Not Available benzonatate 200 mg capsule TAKE 1 CAPSULE BY MOUTH 2 TO 3 TIMES PER DAY NEEDED FOR COUGH 11/22 completed Not Available Not Available Not Available hydrocortis one 1 % topical ointment APPLY TOPICALLY TO THE AFFECTED AREA TWICE DAILY FOR 7 DAYS 11/22 completed Not Available Not Available Not Available ciprofloxac in 500 mg tablet 11/22 completed Not Available Not Available Not Available sulfamethox azole 800 mg-trimetho prim 160 mg tablet TAKE 1 TABLET BY MOUTH TWICE DAILY FOR 5 DAYS 11/22 completed Not Available Not Available Not Available acetaminoph en 500 mg tablet TAKE 1-2 TABLETS BY MOUTH EVERY 6 HOURS NEEDED FOR PAIN active Not Available Not Available No t Available lamotrigine 25 mg tablet TAKE 1 TABLET BY MOUTH DAILY FOR 2 WEEKS, THEN INCREASE TO 2 TABS DAILY* 11/22 completed Not Available Not Available Not Available cephalexin 500 mg capsule 11/22 completed Not Available Not Available Not Available sertraline 25 mg tablet Take 1 tablet every day by oral route. active Not Available Not Available No t Available aspirin 81 mg chewable tablet CHEW AND SWALLOW 1 TABLET BY MOUTH TWICE DAILY FOR 14 DAYS FOR DVT PREVENTIO N 11/22 completed Not Available Not Available Not Available hydroxyzine HCl 25 mg tablet 12/16 completed Not Available Not Available Not Available clotrimazol e 1 % topical cream APPLY TOPICALLY 2 TIMES DAILY 11/22 completed Not Available Not Available Not Available sertraline 50 mg tablet 12/16 completed Not Available Not Available Not Available doxycycline hyclate 100 mg tablet TAKE 1 TABLET BY MOUTH TWICE DAILY FOR 7 DAYS 11/22 completed Not Available Not Available Not Available oxycodone 5 mg tablet TAKE 1 TABLET BY MOUTH EVERY 4 HOURS NEEDED FOR PAIN 11/22 completed Not Available Not Available Not Available cyclobenzap rine 5 mg tablet Take 1 tablet every day by oral route at bedtime for 30 days, for jaw pain and headaches .. 01/05 completed Not Available Not Available Not Available bupropion HCl XL 150 mg 24 hr tablet, extended release TAKE 1 TABLET BY MOUTH DAILY 11/22 completed Not Available Not Available Not Available lisdexamfet amine 30 mg capsule TAKE ONE CAPSULE BY MOUTH ONE TIME DAILY* 01/05 completed Not Available Not Available Not Available lisdexamfet amine 40 mg capsule TAKE 1 CAPSULE BY MOUTH DAILY 11/22 completed Not Available Not Available Not Available Eliquis 5 mg tablet BID active Not Available Not Available No t Available Vienva 0.1 mg-20 mcg tablet TAKE 1 TABLET BY MOUTH EVERY DAY 11/22 completed Not Available Not Available Not Available Eliquis DVT-PE Treatment 30-Day Starter 5 mg (74 tablets) in dose pack FOLLOW PACKAGE DIRECTION S 11/22 completed Not Available Not Available Not Available Pepcid AC Maximum Strength 20 mg tablet 2 tablets twice a day by oral route. active Not Available Not Available No t Available Paxlovid 300 mg (150 mg x 2)-100 mg tablets in a dose pack TK 2 NIRMATREL VIR TS AND 1 RITONAVIR T TOGETHER PO BID FOR 5 DAYS 11/22 completed Not Available Not Available Not Available Vitals Date Recorded Body height Body mass index (BMI) Body weight Heart rate Systolic blood pressure Diastolic blood pressure Provider Name and Address Organization Details Last Updated DateTime 168.91 cm 44 kg/m2 609306. 09 g 58 /min 118 mm[Hg] 87 mm[Hg] Judy Poon [facility] 17:01:42 Social History Question Answer Notes LastModified by Organizat ion Details LastModified Time Tobacco Smoking Status Never Smoker Judy Poon [facility], [facility] 12/01/2023 16:33:25 What Is Your Level Of Alcohol Consumption? None Information not available 12/01/2023 Are You Currently Employed? Yes Information not available 12/01/2023 What Type Of Diet Are You Following? 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 Information not available 12/01/2023 Sex: Unknown Functional Status None recorded. Mental Status None recorded. Family History Relationship Description Onset Age of this Age Resolved Age Notes LastModified by Organization Details LastModified Time Mother Arthritis Not availa ble 12/01/2023 16:31:03 Mother Headache Not availab le 12/01/2023 16:31:26 Maternal Aunt Arthritis Not available 12/01/2023 16:31:03 Maternal Aunt Rheumatoid arthritis Not available 11/30 16:32:00 Maternal Grandmother Arthritis Not available 0 12/01/2023 16:31:03 Maternal Grandmother Rheumatoid arthritis Not available 11/30 16:32:00 Paternal Grandmother Diabetes mellitus Not available 11/30 16:31:15 Maternal Grandfather Heart disease Not available 11/30 16:31:44 Medical History Condition Response Allergies/Hayfever Y Coronary Artery Disease Y Other Y Arthritis Y Post traumatic stress disorder (PTSD) Y Acid Reflux (GERD) Y Vertigo Y High Cholesterol Y Sleep Disorder Y Obstructive Sleep Apnea Y Hypertension Y Gynecological HistoryNo gynecological history recorded. Obstetrics History GPAL:G 0 P 0 0 0 0 Immunizations Vaccine Type Date Status Provider Name and Address Organization Details Recorded Time influenza, unspecified formulation 12/04/2022 completed Judy de la garza, [facility] 12/01/2023 16:10:28 SARS-COV-2 (COVID-19) vaccine, UNSPECIFIED 06/04/2023 completed Judy de la garza, [facility] 12/01/2023 16:11:32 influenza, unspecified formulation 12/05/2023 completed Judy de la garza, [facility] 01/06/2024 17:04:22 SARS-COV-2 (COVID-19) vaccine, UNSPECIFIED 01/04/2024 completed Judy de la garza, [facility] 01/06/2024 17:04:44 Past Encounters Encounter ID Performer Location Encounter Start Date Encounter Closed Date Diagnosis/Indication Diagnosis SNOMED-CT Code Diagnosis ICD10 Code [id number] LI JORDAN BDS,MS [place] [address] [place] [address] 12/17/2023 13:58:22 12/17/2023 15:25:29 Articular disc disorder of temporomandibular joint 83959705 M26.633 Myofascial pain 84130464 9 M79.11 M79.12 Bilateral temporomandibular joint pain 3290025866 4603873 M26.623 Episodic t ension-type headache 486614344 G44.219 Bilateral referred otalgia of ears 3947574744 258744 H92.03 Sleep related bruxism 27 6032402 G47.63 [id number] LI JORDAN BDS,MS [place] [address] [place] [address] 01/06/2024 16:48:02 01/06/2024 17:34:26 Articular disc disorder of temporomandibular joint 50029945 M26.633 Myofascial pain 66206860 9 M79.11 M79.12 Bilateral temporomandibular joint pain 4466126855 8321148 M26.623 Episodic t ension-type headache 485210836 G44.219 Bilateral referred otalgia of ears 9977156670 161992 H92.03 Sleep related bruxism 27 9216378 G47.63 Health Concerns Section Related Observation LastModified by Organization Detmarivel ls LastModified Time None Recorded Concern Status LastModified by Organization Details LastModified Time None Recorded Payers Encounter Date Sequence Insurance Name Policy Number Policy Loza Covered Member ID Loza Member ID Guarantor Name 01/06/2024 1 [email or web address] [id number] Woody Blood [id number] Ruslan Caitie Notes Date Note Type Note Provider Name and Address Organization Details Recorded Time 01/06/2024 text/html general HPI for jaw, face, TMD painReported bypatient.Onset:start ed 2+ year(s) ago; gradual Location:bilateral; mandibular; preauricular Quality:dull; aching; sharp Severity:pain level 0-8/10 Durationintermittent Symptom triggers:clenching; bruxism; stress; anxiety; chews hard/crunchy/chewy foods Aggravating Factors:yawning; wide mouth opening; dental work Alleviating Factors:acetaminophen ; ice Associated Symptoms:jaw clicking;jaw popping;tooth pain(lower left area);malocclusion;he adaches;tinnitus Patient presents today for insertion of a {{mandibular stabilization* maxill cisco stabilization Irene dual opposing repositionin g mandibular advancement (Somnomed Jd Advanced Elite) mandibular advancement (Somnomed Air/Dorsal) mandibula r advancement (Somnomed Viktoria) Irene Elevate 9A Irene Elevate 4A Panthera Classic}} oral appliance. They note {{no changes in improved worsening *}} symptoms which along with prior data was reviewed, updated and documented in the patient history of present illness. (S)he describes {{compliance* partial compliance non-compli ance}} with home self care as previously recommended. Patient states her jaw symptoms are a little bit worse because of stress. She has been using hot compress on most days, which is helpful when used. Her headaches are quick in nature. Located in her temples presenting with the jaw pain, lasting for less than an hour. She is not taking cyclobenzaprine. It was helpful in regards to sleep and muscle relaxation, however, she also started taking sertraline. She discontinued the cyclobenzaprine because she was concern with their interactions. Sertaline is scheduled to start tomorrow - for PMS related mood symptoms. Cyclobenzaprine is helpful and Ruslan would like to re-start it of possible. She would like to talk about potential interactions with Sertraline today. Ruslan has not gotten started with PT in [place], [place]. She would like to, but needs to find the right time for it. TPI - she finds the injections helpful but short lasting. She denies adverse effects but would like to defer them. LI JORDAN, SARAHS,MS [address] [facility] [address], [place], [address], [facility] 01/07/2024 09:32:23 OBGyn Episode No OBEpisode recorded.
--- OUTSIDE RECORDS SUMMARY | 2024-02-26 03:36 | XMS_ITS | Encounter Summary ---
Author Organization [facility] Address [address] [place] [address] Care Team Providers Care Framing Mechanic Name Role Phone Ino Monteiro MD Unavailable [phone] Brandy Paz DO Primary Care Provider [phone] Shania Matthews APRN BALLAST INSPECTOR Unavailable [phone] Efren Mosley MD Unavailable [phone] Reason for Visit * Reason Onset Date Comments Call Back 11/29/2023 [facility] records Encounter Details Date Type Department Care Team (Late st Contact Info) Description 11/29/2023 Telephone [facility] [address] [address] Laurie Larson PA [facility] [address] [place] [address] Call Back ([facility] records) Social History Tobacco Use Types Packs/Day Years [...] file Travel History Travel Start Travel End [place] 01/08/2024 02/06/2024 documented as of this encounter Miscellaneous Notes * Telephone Encounter - Shari Sheppard RN - 11/29/2023 1:32 PM CDT Results pulled from care everywhere. Fax sent per [facility] to [place] location Reaching out to staff onsite to fax to [place] if needed Shari Sheppard RN on 11/29/2023 at 1:33 PM * Telephone Encounter - Iliana Phoenix - 11/29/2023 11:17 AM CDT [facility] Phone Message May a detailed message be left on voicemail: yes Reason for Call: Other: Pt needs someone to reach out to [facility] and request records before her appttoday as [facility] stated they can't send them until they receive a call from the team for a request, [facility] number to call is [phone], needs ct scan from 11/24 results as well as Echo stress from today Action Taken: Other: Cardio Travel Screening: Not Applicable Date of Service: documented in this encounter Plan of Treatment Not on file documented as of this encounter Visit Diagnoses Not on filedocumented in this encounter Care Teams Framing Mechanic Relationship Specialty Start Date End Date Brandy Paz DO [facility] [address] [place] [address] PCP - General Family Medicine 11/10/23 Ino Monteiro MD [address] [place] [address] Assigned Surgical Provider 10/04/21 Shania Matthews APRN BALLAST INSPECTOR [address] [place] [address] Nurse Practitioner Cardiovascular Disease 11/24/23 Efren Mos[place] MD [address] [facility] [address] [place] [address] Assigned Heart and Vascular Provider 11/26/23 12/26/23 documented as of this encounter
--- OUTSIDE RECORDS SUMMARY | 2024-02-26 03:36 | XMS_ITS | Encounter Summary ---
Author Organization [facility] Address [address] [place] [address] Care Team Providers Care Cake Maker Name Role Phone Ino Monteiro MD Unavailable [phone] Brandy Paz DO Primary Care Provider [phone] Encounter Details Date Type Department Care Team (Latest Contact Info) Description 11/22/2023 Travel Social History Tobacco Use Types Packs/Day [...] file Travel History Travel Start Travel End [place] 01/08/2024 02/06/2024 documented as of this encounter Plan of Treatment Not on file documented as of this encounter Visit Diagnoses Not on filedocumented in this encounter Care Teams Cake Maker Relationship Specialty Start Date End Date Brandy Paz DO [facility] [address] [place] [address] PCP - General Family Medicine 11/10/23 Ino Monteiro MD [address] [facility] [address] [place] [address] Assigned Surgical Provider 10/04/21 documented as of this encounter
--- OUTSIDE RECORDS SUMMARY | 2024-02-26 03:36 | XMS_ITS | Encounter Summary ---
Author Organization [facility] Address [address] [place] [address] Care Team Providers Care Furnace Charger Name Role Phone Ino Monteiro MD Unavailable [phone] Brandy Paz DO Primary Care Provider [phone] Shania Matthews APRN [employer] Unavailable [phone] Efren Mosley MD Unavailable [phone] Encounter Details Date Type Department Care Team (Latest Contact Info) Description 11/29/2023 Travel Social History Tobacco Use Types Packs/Day [...] file Travel History Travel Start Travel End [place] 01/08/2024 02/06/2024 documented as of this encounter Plan of Treatment Not on file documented as of this encounter Visit Diagnoses Not on filedocumented in this encounter Care Teams Furnace Charger Relationship Specialty Start Date End Date Brandy Paz DO [address] [address] PCP - General Family Medicine 11/10/23 Ino Monteiro MD [address] [place] [address] Assigned Surgical Provider 10/04/21 Shania Matthews APRN CNP [address] [place] [address] Nurse Practitioner Cardiovascular Disease 11/24/23 Efren Mos[place] MD [address] [place] [address] [place] [address] Assigned Heart and Vascular Provider 11/26/23 12/26/23 documented as of this encounter
--- OUTSIDE RECORDS SUMMARY | 2024-02-26 03:36 | XMS_ITS | Encounter Summary ---
Author Organization [facility] Address [address] [place] [address] Care Team Providers Care Licensed Marriage And Family Therapist Name Role Phone Ino Monteiro MD Unavailable [phone] Brandy Pza DO Primary Care Provider [phone] Shania Matthews APRN LINE WALKER Unavailable [phone] Laurie Larson Unavailable Encounter Details Date Type Department Care Team (Latest Contact Info) Description 02/11/2024 Travel Social History Tobacco Use Types Packs/Day [...] file Travel History Travel Start Travel End [place] 01/08/2024 02/06/2024 documented as of this encounter Plan of Treatment Not on file documented as of this encounter Visit Diagnoses Not on filedocumented in this encounter Care Teams Licensed Marriage And Family Therapist Relationship Specialty Start Date End Date Brandy Paz DO [address] [address] PCP - General Family Medicine 11/10/23 Ino Monteiro MD [address] [place] [address] Assigned Surgical Provider 10/04/21 Shania Matthews APRN LINE WALKER [address] [place], [place] [address] Nurse Practitioner Cardiovascular Disease 11/24/23 Laurie Larson PA [facility] [address] [place] [address] Assigned Heart and Vascular Provider 12/27/23 documented as of this encounter
--- OUTSIDE RECORDS SUMMARY | 2024-02-26 03:36 | XMS_ITS | Encounter Summary ---
Author Organization [facility] Address [address] [place] [address] Care Team Providers Care Loading Shovel Oiler Name Role Phone Ino Monteiro MD Unavailable [phone] Brandy Paz DO Primary Care Provider [phone] Shania Matthews APRN DIRECTOR OF PRODUCT DEVELOPMENT Unavailable [phone] Efren Mosley MD Unavailable [phone] Laurie Larson Unavailable Encounter Details Date Type Department Care Team (Late st Contact Info) Description 12/08/2023 [facility] [facility] [place] [address] [place] [address] [address] [place] [address] Laurie Larson PA [facility] [address] [place] [address] Social History Tobacco Use Types Packs/Day Years [...] file Travel History Travel Start Travel End [place] 01/08/2024 02/06/2024 documented as of this encounter Plan of Treatment Not on file documented as of this encounter Visit Diagnoses Not on filedocumented in this encounter Care Teams Loading Shovel Oiler Relationship Specialty Start Date End Date Brandy Paz DO [facility] [address] [place] [address] PCP - General Family Medicine 11/10/23 Ino Monteiro MD [address] [place], [place] [address] Assigned Surgical Provider 10/04/21 Shania Matthews, JENNIFER DIRECTOR OF PRODUCT DEVELOPMENT [address] [place] [address] Nurse Practitioner Cardiovascular Disease 11/24/23 Efren Mosley MD [address] [place] [id number] Assigned Heart and Vascular Provider 11/26/23 12/26/23 Laurie Larson PA [facility] [address] [place] [address] [id number] Assigned Heart and Vascular Provider 12/27/23 documented as of this encounter
--- OUTSIDE RECORDS SUMMARY | 2024-02-26 03:36 | XMS_ITS | Encounter Summary ---
Author Organization [facility] Address [address] [place] [address] Care Team Providers Care Customer Sales Distributor Name Role Phone Ino Monteiro MD Unavailable [phone] Brandy Paz DO Primary Care Provider [phone] Shania Matthews APRN PARK LANDSCAPE ARCHITECT Unavailable [phone] Efren Mosley MD Unavailable [phone] Laurie Larson Unavailable Reason for Visit * Reason Onset Date Comments Next Day Appointment 11/10/2023 Dr. Mosley on 11/11/23 at 1:15 P.M. Encounter Details Date Type Department Care Team (Late st Contact Info) Description 11/10/2023 Telephone [facility] [place] [id number] [facility] [address] [place] [address] Efren Mosley MD [address] [facility] [address] [place], [place] [phone] Next Day Appointment (Dr. Mosley on 11/11/23 at 1:15 P.M.) Social History Tobacco Use Types Packs/Day Years [...] file Travel History Travel Start Travel End [place] 01/08/2024 02/06/2024 documented as of this encounter Miscellaneous Notes * Telephone Encounter - Jr. Robin Patel - 11/10/2023 1:11 PM CDT [facility] Phone Message May a detailed message be left on voicemail: yes Reason for Call: Other: Just a heads up that Ruslan has scheduled a next-day appointment with Dr. Mosley on 11/11/23 at 1:15 P.M. Action Taken: Other: Cardiology Travel Screening: Not Applicable Thank you! [facility] documented in this encounter Plan of Treatment Not on file documented as of this encounter Visit Diagnoses Not on filedocumented in this encounter Care Teams Customer Sales Distributor Relationship Specialty Start Date End Date Brandy Paz DO [address] [address] PCP - General Family Medicine 11/10/23 Ino Monteiro MD [address] [facility] [address] [place] [address] Assigned Surgical Provider 10/04/21 Shania Matthews APRN PARK LANDSCAPE ARCHITECT [address] [place] [id number] Nurse Practitioner Cardiovascular Disease 11/24/23 Efren Mosley MD [address] [place] [address] Assigned Heart and Vascular Provider 11/26/23 12/26/23 Laurie Larson PA [facility] [address] [place] [id number] Assigned Heart and Vascular Provider 12/27/23 documented as of this encounter
--- OUTSIDE RECORDS SUMMARY | 2024-02-26 03:36 | XMS_ITS | Encounter Summary ---
Author Organization [facility] Address [address] [place] [address] Care Team Providers Care Leather Sprayer Name Role Phone Ino Monteiro MD Unavailable [phone] Brandy Paz DO Primary Care Provider [phone] Shania Matthews APRN, CNP Unavailable [phone] Laurie Larson Unavailable Encounter Details Date Type Department Care Team (Late st Contact Info) Description 02/11/2024 9:45 AM JUNIOR LOAN PROCESSOR Lab [facility] [address] [place] [address] Coronary artery calcification of [place] artery; Elevated LDL cholesterol level Social History Tobacco Use Types Packs/Day Years [...] file Travel History Travel Start Travel End [place] 01/08/2024 02/06/2024 documented as of this encounter Plan of Treatment Not on file documented as of this encounter Procedures Procedure Name Priority Date/Time Associated Diagnosis Comments LIPID REFLEX TO DIRECT LDL PANEL Routine 02/11/2024 9:47 AM JUNIOR LOAN PROCESSOR Coronary artery calcification of [place] artery Elevated LDL cholesterol level documented in this encounter Results * (ABNORMAL) Lipid panel reflex to direct LDL Fasting (02/11/2024 9:47 AM JUNIOR LOAN PROCESSOR) Cholesterol 108 <200 mg/dL 02/11/2024 5:36 PM JUNIOR LOAN PROCESSOR [facility] Triglycerides 100 <150 mg/dL 02/11/2024 5:36 PM JUNIOR LOAN PROCESSOR [facility] Direct Measure HDL 36(L) >=50 mg/dL 2023 5:36 PM JUNIOR LOAN PROCESSOR [facility] LDL Cholesterol Calculated 52 <100 mg/dL 02/11/2024 5:36 PM JUNIOR LOAN PROCESSOR [facility] Non HDL Cholesterol 72 <130 mg/dL 02/11/2024 5:36 PM JUNIOR LOAN PROCESSOR [facility] Patient Fasting > 8hrs? Yes 02/11/2024 5:36 PM JUNIOR LOAN PROCESSOR [facility] Blood STRUCTURE OF LEFT UPPER LIMB / Unknown Venipuncture / Unknown 02/11/2024 9:47 AM JUNIOR LOAN PROCESSOR 02/11/2024 9:51 AM JUNIOR LOAN PROCESSOR Narrative [facility] - 02/11/2024 5:36 PM JUNIOR LOAN PROCESSOR Cholesterol Desirable: < 200 mg/dL Borderline High: [...] [facility] [place] [facility] [address] [facility] [address], Room [address] [place] [address], [facility] [address] Lab (1st floor, no room number) [place] [address] documented in this encounter Visit Diagnoses Diagnosis Coronary artery calcification of [place] artery Elevated LDL cholesterol level Pure hypercholesterolemia documented in this encounter Care Teams Leather Sprayer Relationship Specialty Start Date End Date Brandy Paz DO [facility] [address] [place] [address] PCP - General Family Medicine 11/10/23 Ino Monteiro MD [address] [facility] [address] [place], [place] [address] Assigned Surgical Provider 10/04/21 Shania Matthews APRN CNP [address] [place], [place] [id number] Nurse Practitioner Cardiovascular Disease 11/24/23 Laurie Larson PA [facility] [address] [place] [id number] Assigned Heart and Vascular Provider 12/27/23 documented as of this encounter
--- OUTSIDE RECORDS SUMMARY | 2024-02-26 03:36 | XMS_ITS | Encounter Summary ---
Author Organization [facility] Address [address] [place] [address] Care Team Providers Care Occupational Safety Specialist Name Role Phone Ino Monteiro MD Unavailable [phone] Brandy Paz DO Primary Care Provider [phone] Encounter Details Date Type Department Care Team (Latest Contact Info) Description 11/23/2023 Travel Social History Tobacco Use Types Packs/Day [...] file Travel History Travel Start Travel End [place] 01/08/2024 02/06/2024 documented as of this encounter Plan of Treatment Not on file documented as of this encounter Visit Diagnoses Not on filedocumented in this encounter Care Teams Occupational Safety Specialist Relationship Specialty Start Date End Date Brandy Paz DO [facility] [address] [place] [address] PCP - General Family Medicine 11/10/23 Ino Monteiro MD [address] [facility] [address] [place] [address] Assigned Surgical Provider 10/04/21 documented as of this encounter
--- OUTSIDE RECORDS SUMMARY | 2024-02-26 03:36 | XMS_ITS | Encounter Summary ---
Author Organization [facility] Address [address] [place] [address] Care Team Providers Care Log Rider Name Role Phone Ino Monteiro MD Unavailable [phone] Brandy Paz DO Primary Care Provider [phone] Shania Matthews E SUPERVISOR ELECTRIC YARN TESTER Unavailable [phone] Laurie Larson Unavailable Reason for Visit * Reason Comments RECHECK Return S/P hernia, b leeding from umbilical Encounter Details Date Type Department Care Team (Late st Contact Info) Description 02/08/2024 3:30 PM AUTO CARRIER DRIVER Office Visit [facility] [place] [address] [facility] [address] [place] [address] Ino Monteiro MD [address] [facility] [address] [place] [address] Omphalitis in adult (Primary Dx) Social History Tobacco Use Types Packs/Day Years [...] 01/08/2024 02/06/2024 documented as of this encounter Last Filed Vital Signs Vital Sign Reading Time Taken Comments Blood Pressure 114/76 02/08/2024 3:29 PM AUTO CARRIER DRIVER Pulse 63 02/08/2024 3:29 PM AUTO CARRIER DRIVER Temperature - - Respiratory Rate - - Oxygen Saturation 99% 02/08/2024 3:29 PM AUTO CARRIER DRIVER Inhaled Oxygen Concentration - - Weight 126.1 kg (278 lb) 02/08/2024 3:29 PM AUTO CARRIER DRIVER Height 167.6 cm (5' 6) 02/08/2024 3:29 PM AUTO CARRIER DRIVER Body Mass Index 44.87 02/08/2024 3:29 PM AUTO CARRIER DRIVER documented in this encounter Plan of Treatment Not on file documented as of this encounter Visit Diagnoses Diagnosis Omphalitis in adult- Primary Unspecified local infection of skin and subcutaneous tissue documented in this encounter Care Teams Log Rider Relationship Specialty Start Date End Date Brandy Paz DO [facility] [address] [place] [address] PCP - General Family Medicine 11/10/23 Ino Monteiro MD [address] [facility] [address] [place], [place] [address] Assigned Surgical Provider 10/04/21 Shania Matthews, SUPERVISOR ELECTRIC YARN TESTER [address] [place], [place] [address] Nurse Practitioner Cardiovascular Disease 11/24/23 Laurie Larson PA [facility] [address] [place] [phone] Assigned Heart and Vascular Provider 12/27/23 documented as of this encounter
--- OUTSIDE RECORDS SUMMARY | 2024-02-26 03:36 | XMS_ITS | Encounter Summary ---
Author Organization [facility] Address [address] [place] [address] Care Team Providers Care Technology Support Analyst Name Role Phone Ino Monteiro MD Unavailable [phone] Brandy Paz DO Primary Care Provider [phone] Shania Matthews APRN INTERNATIONAL FREIGHT FORWARDER Unavailable [phone] Efren Mosley MD Unavailable [phone] Encounter Details Date Type Department Care Team (Latest Contact Info) Description 11/28/2023 Travel Social History Tobacco Use Types Packs/Day [...] file Travel History Travel Start Travel End [place] 01/08/2024 02/06/2024 documented as of this encounter Plan of Treatment Not on file documented as of this encounter Visit Diagnoses Not on filedocumented in this encounter Care Teams Technology Support Analyst Relationship Specialty Start Date End Date Brandy Paz DO [address] [address] PCP - General Family Medicine 11/10/23 Ino Monteiro MD [address] [place] [address] Assigned Surgical Provider 10/04/21 Shania Matthews APRN CNP [address] [place] [address] Nurse Practitioner Cardiovascular Disease 11/24/23 Efren Mosley MD [address] [place] [address] Assigned Heart and Vascular Provider 11/26/23 12/26/23 documented as of this encounter
--- OUTSIDE RECORDS SUMMARY | 2024-02-26 03:36 | XMS_ITS | Encounter Summary ---
Author Organization [facility] Address [address] [place] [address] Care Team Providers Care Pediatric Dentist Name Role Phone Ino Monteiro MD Unavailable [phone] Brandy Paz DO Primary Care Provider [phone] Shania Matthews APRN INDUSTRIAL EDUCATION TEACHER Unavailable [phone] Efren Mosley MD Unavailable [phone] Reason for Referral * Consultation (Routine: Next available opening) - Pending Review Specialty Diagnoses / Procedures Referred By Contac t Referred To Contact Cardiovascular Disease Diagnoses Coronary artery calcification of unga artery Elevated LDL cholesterol level Laurie Larson PA [facility] HEART [address] [address] Phone: tel: fax: Referral ID Status Reason Start Date Expiration Date V isits Requested Visits Authorized [id number] Pending Review 11/29/2023 11/28/2024 1 1 Scheduling Instructions Follow up dr mosley 1 year Question Answer Preferred Location: [facility] Follow-up with: Other Manager Film Reason for follow-up: General Cardiology Scheduling Instructions: [facility] will call you to coordinate your care as prescribed by your provider. If you have concerns about scheduling, please call [phone]. Comments [facility] will call you to coordinate your care as prescribed by your provider. If you have concerns about scheduling, please call [phone]. Reason for Visit * Reason Comments Follow Up Encounter Details Date Type Department Care Team ([facility] st Contact Info) Description 11/29/2023 4:00 PM CDT Office Visit [facility] [address] [facility] [address] [place] [address] Laurie Larson PA [facility] HE[facility] CARE [address] [place] [address] Coronary artery calcification of unga artery (Primary Dx); Elevated LDL cholesterol level Social History Tobacco Use Types Packs/Day Years Used Date Smoking Tobacco: Never Passive Smoke Exposure: Never Smokeless Tobacco: Never Tobacco Cessation:Counseling Given: Not Answered Alcohol Use Standard Drinks/Week Comments Not Currently [...] file Travel History Travel Start Travel End [place] 01/08/2024 02/06/2024 documented as of this encounter Last Filed Vital Signs Vital Sign Reading Time Taken Comments Blood Pressure 115/76 11/29/2023 3:51 PM CDT Pulse 61 11/29/2023 3:51 PM CDT Temperature - - Respiratory Rate - - Oxygen Saturation - - Inhaled Oxygen Concentration - - Weight 126.1 kg (278 lb) 11/29/2023 3:51 PM CDT Height 167.6 cm (5' 6) 11/29/2023 3:51 PM CDT Body Mass Index 44.87 11/29/2023 3:51 PM CDT documented in this encounter Patient Instructions * Patient Instructions* Laurie Larson PA - 11/29/2023 4:00 PM CDT Thank you for visiting the cardiology clinic today. Medication changes: None Follow up Plan: Check repeat fasting labs in 2-3 months. Return in [address] Mosley. Call sooner with any new issues. Please feel free to reach out to our nursing team at [phone] with any questions or concerns. You can also send us a MyChart and we will get back with you as soon as possible. documented in this encounter Progress Notes * Laurie Larson PA - 11/29/2023 4:00 PM CDT Images from the original note were not included. Cardiology Progress Note Date of Service: 11/29/23 Reason for visit: Follow up cardiac testing. Primary informatics consultant: Efren Mosley MD HPI: Ms. Blood is a pleasant 33 year old female with a PMhx including DVT on anticoagulation and anxiety. She was referred to see Dr. Mosley a few weeks ago due to incidental findings of coronary calcification noted on CT PE performed in September for chest pain. Plan at that time was a dedicated CT coronary calcium score, and a fasting lipid profile to make further recommendations. Today, I am meeting Ruslan in clinic to follow up. She had a CT calcium score performed last week. Her score was 40, and consistent with mild calcification. She actually had a same day ER visit for chest pain and SOB but ultimately this was felt consistent with musculoskeletal chest pain. She was sent for a Stress echocardiogram and this was performed earlier today. This was also reassuring and was negative for ischemia. She did have her symptoms during the testing as well. RV was normal as was her EF. Her cholesterol panel showed LDL of 99 and her atorvastatin dose was increased to 40mg daily. She tells me that since finding out she had coronary calcifications she has been extremely anxious.She stopped her ADHD medications as she was afraid she was going to cause herself a heart attack. She has been extremely strict on her diet, and staying essentially less than 1000mg daily for sodium and working on a vegan diet. She had been more active (though admits she has stopped riding her bikeas she was also nervous about this) and working on losing weight. Most recent labs performed were reviewed as below. ASSESSMENT/PLAN: Coronary calcifications. --Incidental finding on CT PE performed this summer due to chest pain (ultimately found to have a PE, now on anticoagulation). She went on to have a CT calcium score of 40, and felt to have just mildcalcification, no obstructive disease. She also had a STECHO which was performed earlier today at an [facility] facility, and was negative for ischemia. Biventricular function was normal. We discussed results today and I provided reassurance. --Recommended she resume exercise and continue with weight loss. Low saturated fat, plant based diet discussed. --Continue atorvastatin 40mg daily. Last LDL of 99 a few weeks ago. Will plan repeat FLP in 2-3 months. --She asked whether she can resume her stimulants for ADHD; it sounds as if her mental health has been significantly affected by stopping this and she has been very anxious. As there is no significant evidence to suggest this would accelerate CVD for her, I encouraged her to resume this and discusswith psych who she plans to establish with soon. Follow up plan: Plan fasting labs in 2-3 months and we can MyChart her with results. Then return in1 year to see Dr. Mosley. I asked the patient to call sooner with any new concerns. Orders this Visit: Orders Placed This Encounter Procedures Lipid panel reflex to direct LDL Fasting Follow-Up with Cardiology No orders of the defined types were placed in this encounter. Medications Discontinued During This Encounter Medication Reason ELIQUIS DVT/PE STARTER PACK 5 MG TBPK Med Rec(No AVS / No eCancel) CURRENT MEDICATIONS: Current Outpatient Medications Medication Sig Dispense Refill apixaban ANTICOAGULANT (ELIQUIS) 5 MG tablet Take 5 mg by mouth 2 times daily atorvastatin (LIPITOR) 20 MG tablet Take 2 tablets (40 mg) by mouth at bedtime. 180 tablet 3 famotidine (PEPCID) 20 MG tablet Take 20 mg by mouth 2 times daily HEMP OIL OR EXTRACT OR OTHER CBD CANNABINOID, NOT MEDICAL CANNABIS, metFORMIN (GLUCOPHAGE) 500 MG tablet Take 500 mg by mouth 2 times daily (with meals) triamcinolone (NASACORT ALLERGY 24HR CHILDREN) 55 MCG/ACT nasal aerosol Inhale into affected nostril(s). Review of Systems: POS ROS ARE BOLDED, all other negative. Cardiovascular: Chest pain, palpitations, orthopnea, LE edema Resp: Dyspnea on exertion, cough, known chronic lung disease Hematologic/lymphatic: Current systemic anticoagulation, hx of blood clots, new bleeding concerns. Neurological: Dizziness, presyncope/syncope. Physical Exam: Vitals: BP 115/76 Pulse 61 Ht 1.676 m (5' 6) Wt 126.1 kg (278 lb) BMI 44.87 kg/m?? Wt Readings from Last 4 Encounters: 11/29/23 126.1 kg (278 lb) 11/11/23 127.6 kg (281 lb 6.4 oz) 07/09/23 134.7 kg (297 lb) 03/30/23 147.9 kg (326 lb) GEN: In general, this is an overweight female in no acute distress on RA, though somewhat anxious during our visit. Patient ambulatory, unaccompanied. C/V: Regular rate and rhythm, no murmur, rub or gallop. No S3 or RV heave. RESP: Respirations are unlabored. No use of accessory muscles. Clear to auscultation bilaterally without wheezing, rales, or rhonchi. EXTREM: No LE edema. NEURO: Alert and oriented, cooperative. Gait not assessed. Recent Lab Results: LIPID RESULTS: Lab Results Component Value Date CHOL 166 11/13/2023 HDL 31 (L) 11/13/2023 LDL 99 11/13/2023 TRIG 180 (H) 11/13/2023 Additional pertinent testing: MARCELLA Reyes 11/29/23) Indication for study: dyspnea on exertion Cardiac Rhythm: Regular.Study quality: Fair. Imaging limitations: This study was subject to imaging limitations due to a prominent lung artifactand body habitus. Final Impressions: 1. Post stress, [...] 9. PA pressure could not be estimated. CT calcium score 11/25/23 CT CARDIAC CALCIUM SCORING, 11/25/2023 PATIENT HISTORY: Coronary artery disease screening. REPORT: High-resolution, ECG-synchronized computed tomography of the heart with attention to the coronary arteries was performed using [employer] CT. Coronary calcification analyzed using Siemens calcium scoring software. These are the results of the evaluation: Artery Number of Lesions Volume Equiv. Mass Calcium Score LM 0 0.0 0.00 0.0 LAD 4 47.7 8.60 39.7 CX 0 0.0 0.00 0.0 RCA 1 1.2 0.30 0.9 TOTAL 5 49.0 8.90 40.6 45 total minutes was spent today including chart review, precharting, history and exam, patient education, post visit documentation, and reviewing studies as outlined above. diogo Larson PA-C [facility] Heart Pager documented in this encounter Plan of Treatment Scheduled Referrals Name Type Priority Associated Diagnoses Orde r Schedule Follow-Up with Cardiology Referral Routine: Next available opening Coronary artery calcification of unga artery Elevated LDL cholesterol level Expected: 10/02/2024 (Approximate), Expires: 11/28/2024 documented as of this encounter Results * (ABNORMAL) Lipid panel reflex to direct LDL Fasting (02/11/2024 9:47 AM NAVIGATION TEACHER) Cholesterol 108 <200 mg/dL 02/11/2024 5:36 PM NAVIGATION TEACHER [facility] Triglycerides 100 <150 mg/dL 02/11/2024 5:36 PM NAVIGATION TEACHER [facility] Direct Measure HDL 36(L) >=50 mg/dL 2023 5:36 PM NAVIGATION TEACHER [facility] LDL Cholesterol Calculated 52 <100 mg/dL 02/11/2024 5:36 PM NAVIGATION TEACHER [facility] Non HDL Cholesterol 72 <130 mg/dL 02/11/2024 5:36 PM NAVIGATION TEACHER [facility] Patient Fasting > 8hrs? Yes 02/11/2024 5:36 PM NAVIGATION TEACHER [facility] Blood STRUCTURE OF LEFT UPPER LIMB / Unknown Venipuncture / Unknown 02/11/2024 9:47 AM NAVIGATION TEACHER 02/11/2024 9:51 AM NAVIGATION TEACHER Narrative [facility] - 02/11/2024 5:36 PM NAVIGATION TEACHER Cholesterol Desirable: < 200 mg/dL Borderline High: [...] LAB - BLOOD ORDERABLES Final Res ult LABORATORY [facility] [place] Core Lab [address] [facility], Room [address] [place] [address], [facility] LAB[facility] Acute Care Lab [address] Lab (1st floor, no room number) [place] [address], [facility] documented in this encounter Visit Diagnoses Diagnosis Coronary artery calcification of unga artery- Primary Elevated LDL cholesterol level Pure hypercholesterolemia documented in this encounter Care Teams Pediatric Dentist Relationship Specialty Start Date End Date Brandy Paz DO [facility] [address] [place] [address] PCP - General Family Medicine 11/10/23 Ino Monteiro MD [address] [place] [address] Assigned Surgical Provider 10/04/21 Shania Matthews APRN INDUSTRIAL EDUCATION TEACHER [address] [place] [address] Nurse Practitioner Cardiovascular Disease 11/24/23 Efren Mosley MD [address] [place] [id number] Assigned Heart and Vascular Provider 11/26/23 12/26/23 documented as of this encounter
--- OUTSIDE RECORDS SUMMARY | 2024-02-26 03:36 | XMS_ITS | Encounter Summary ---
Author Organization [facility] Address [address] [place] [address] Care Team Providers Care Brim Stretcher Name Role Phone Ino Monteiro MD Unavailable [phone] Janet Sue NP Primary Care Provider Brandy Paz DO Primary Care Provider [phone] Shania Matthews APRN, CNP Unavailable [phone] Efren Mosley MD Unavailable [phone] Laurie Larson Unavailable Encounter Details Date Type Department Care Team (Late st Contact Info) Description 10/13/2023 [facility] [place] [facility] [place] [address] [place] [address] Ino Monteiro MD [address] [facility] [address] [place] [address] Social History Tobacco Use Types Packs/Day Years Used Date Smoking Tobacco: Never Passive Smoke Exposure: Never Smokeless Tobacco: Never Alcohol Use Standard Drinks/Week Comments Not Currently 0 (1 standard drink = 0.6 oz pur e alcohol) Adolescent Education Answer Date Record ed Getting [...] on filedocumented in this encounter Care Teams Brim Stretcher Relationship Specialty Start Date End Date Janet Sue NP [facility] [address] [place] [address] PCP - General 07/08/23 11/09/23 Brandy Paz DO [facility] [address] [place] [address] PCP - General Family Medicine 11/10/23 Ino Monteiro MD [address] [facility] [address] [place] [address] Assigned Surgical Provider 10/04/21 Shania Matthews APRN TOP FRAME FITTER [address] [place] [address] Nurse Practitioner Cardiovascular Disease 11/24/23 Efren Mosley MD [address] [place] [address] Assigned Heart and Vascular Provider 11/26/23 12/26/[address] [facility] HEART CARE [address] [place] [address] Assigned Heart and Vascular Provider 12/27/23 documented as of this encounter
--- OUTSIDE RECORDS SUMMARY | 2024-02-26 03:36 | XMS_ITS | Encounter Summary ---
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); Elevated LDL cholesterol level; Hyperlipidemia LDL goal <70 Social History Tobacco Use Types Packs/Day Years [...] file Travel History Travel Start Travel End [place] 01/08/2024 02/06/2024 documented as of this encounter Miscellaneous Notes * Telephone Encounter - Shari Sheppard RN - 11/24/2023 8:53 AM CDT Rx sent Patient messaged back Shari Sheppard RN on 11/24/2023 at 9:04 AM documented in this encounter Plan of Treatment Not on file documented as of this encounter Visit Diagnoses Diagnosis Coronary artery calcification of selawik artery- Primary Elevated LDL cholesterol level Pure hypercholesterolemia Hyperlipidemia LDL goal <70 Other and unspecified hyperlipidemia documented in this encounter Care Teams Perianesthesia Nurse Relationship Specialty Start Date End Date Brandy Paz DO [facility] [address] [place] [address] PCP - General Family Medicine 11/10/23 Ino Monteiro MD [address] [facility] [address] [place] [address] Assigned Surgical Provider 10/04/21 Shania Matthews APRN RUG CLEANER HELPER [address] [place], [place] [address] Nurse Practitioner Cardiovascular Disease 11/24/23 documented as of this encounter
--- OUTSIDE RECORDS SUMMARY | 2024-02-26 03:36 | XMS_ITS | Encounter Summary ---
Author Organization [facility] Address [address] [place] [address]. [place] [address] Care Team Providers Care Sausage Stuffer Name Role Phone Ino Monteiro MD Unavailable [phone] Brandy Paz DO Primary Care Provider [phone] Shania Matthews APRN UNIX ADMINISTRATOR Unavailable [phone] Laurie Larson Unavailable Encounter Details Date Type Department Care Team (Late st Contact Info) Description 02/17/2024 [facility] [place] Advice [facility] Clinic [facility] [address] [facility] [address] [place] [address] Efren Mosley MD [address] [facility] [address] [place] [address] Social History Tobacco Use Types [...] file Travel History Travel Start Travel End [place] 01/08/2024 02/06/2024 documented as of this encounter Plan of Treatment Not on file documented as of this encounter Visit Diagnoses Not on filedocumented in this encounter Care Teams Sausage Stuffer Relationship Specialty Start Date End Date Brandy Paz DO [facility] [address] [place] [address] PCP - General Family Medicine 11/10/23 Ino Monteiro MD [address] [facility] [address] [place], [place] [address] Assigned Surgical Provider 10/04/21 Shania Matthews, WET END OPERATOR UNIX ADMINISTRATOR [address] [place], [place] [address] Nurse Practitioner Cardiovascular Disease 11/24/23 Laurie Larson PA [facility] HE[facility] CARE [address] [place] [id number] Assigned Heart and Vascular Provider 12/27/23 documented as of this encounter
--- OUTSIDE RECORDS SUMMARY | 2024-02-26 03:36 | XMS_ITS | Encounter Summary ---
Author Organization [facility] Address [address] [place] [address] Care Team Providers Care Quality Compliance Consultant Name Role Phone Ino Monteiro MD Unavailable [phone] Brandy Paz DO Primary Care Provider [phone] Shania Matthews E JENNIFER SENIOR AUTOMATION ENGINEER Unavailable [phone] Laurie Larson Unavailable Reason for Visit * Reason Onset Date Comments Surgical Followup 01/25/2024 Bleeding and s gabe form umbilical area Encounter Details Date Type Department Care Team (Late st Contact Info) Description 01/25/2024 Telephone [facility] [place] [address] [facility] [place] [address] Ino Monteiro MD [address] [facility] [address] [place] [address] Surgical Followup (Bleeding and smell form umbilical area) Social History Tobacco Use Types Packs/Day Years [...] file Travel History Travel Start Travel End [place] 01/08/2024 02/06/2024 documented as of this encounter Miscellaneous Notes * Telephone Encounter - Ariana Hanley RN - 01/25/2024 3:56 PM CDT Called patient back after discussing with Rae Ramirez PA-C. Per Rae, she spoke with Dr. Monteiro. Not concerned with foul odor, with absence of infection symptoms. Continue to keep clean and covered. Keep appointment as scheduled. Call if worsening pain, redness, fever, white/thick drainage (signs of infection). She agreed CHUCK RainN * Telephone Encounter - Ariana Hanley RN - 01/25/2024 2:46 PM CDT Procedure: Robotic assisted ventral hernia repair with mesh (3.1 cm defect) Robotic assisted laparoscopic cholecystectomy Date: 10/26/2022 Surgeon: Thania Patient reporting foul odor and draining from umbilicus. She has had similar issues in the past. However, this time there is a foul odor associated with symptoms She has been cleaning tami jazmyn and packing gauze into the umbilicus. When removing packing, there is fresh bleeding. This is not saturating through. She is also experiencing increasing tenderness around the area. Does not notice any areas of redness. Encouraged her to continue keeping area clean. Let soapy water from shower run over the area to clean it out. Continue covering are while draining. Informed her that I will route her call to PA team for review to determine if sooner appointment than 02/08/24 is warranted and also ask for additional recommendations while waiting for appointment. She is in agreement with this plan and will wait for call back. ELENI RainBSN * Telephone Encounter - Yolette Dalton - 01/25/2024 2:33 PM CDT Name of caller: Patient Reason for Call: Pt calling stating she is having bleeding from the umbilical area. Appt was made to see DFB for future per [facility] conversation with DFB, Pt is wondering if there is something she should do for this, or things she should be watchful of before appt. She states that she has had the bleeding before but now there seems to be a smell as well Surgeon: Dr. Monteiro Recent Surgery: Yes. If yes, when & what type: 10/26, Robotic assisted ventral hernia repair with mesh (3.1 cm defect) Robotic assisted laparoscopic cholecystectomy Best phone number to reach pt at is: [phone] Ok to leave a message with medical info? Yes. Pharmacy preferred (if calling for a refill): NA documented in this encounter Plan of Treatment Not on file documented as of this encounter Visit Diagnoses Not on filedocumented in this encounter Care Teams Quality Compliance Consultant Relationship Specialty Start Date End Date Brandy Paz DO [facility] [address] [place] [address] PCP - General Family Medicine 11/10/23 Ino Monteiro MD [address] [facility] [address] [place], [place] [address] Assigned Surgical Provider 10/04/21 Shania Matthews APRN SENIOR AUTOMATION ENGINEER [address] [place], [place] [address] Nurse Practitioner Cardiovascular Disease 11/24/23 Laurie Larson PA [facility] HEART CARE [address] [place] [id number] Assigned Heart and Vascular Provider 12/27/23 documented as of this encounter
--- OUTSIDE RECORDS SUMMARY | 2024-02-26 03:36 | XMS_ITS | Encounter Summary ---
Author Organization [place] Address [address] [place] [address] Care Team Providers Care Supervisor Heavy Equipment Name Role Phone Ino Monteiro MD Unavailable [phone] Brandy Paz DO Primary Care Provider [phone] Reason for Visit * Reason Comments Results ventral hernia repai r with mesh and lap kelli both done 10/26/22 Encounter Details Date Type Department Care Team (Late st Contact Info) Description 11/23/2023 1:15 PM CDT Office Visit [facility] [place] [address] [place] [address] Ino Monteiro MD [address] [address] [place] [address] Abdominal pain, generalized (Primary Dx) Social History Tobacco Use Types [...] file Travel History Travel Start Travel End [place] 01/08/2024 02/06/2024 documented as of this encounter Last Filed Vital Signs Vital Sign Reading Time Taken Comments Blood Pressure 118/82 11/23/2023 1:14 PM CDT Pulse 73 11/23/2023 1:14 PM CDT Temperature - - Respiratory Rate 16 11/23/2023 1:14 PM CDT Oxygen Saturation 98% 11/23/2023 1:14 PM CDT Inhaled Oxygen Concentration - - Weight - - Height - - Body Mass Index - - documented in this encounter Progress Notes * Ino Monteiro MD - 11/23/2023 1:15 PM CDT The patient returns to follow-up regarding her abdominal pain with some questions regarding her previous hernia repair. The patient has had some central abdominal pain, and was seen at the end of last month in [place]. She had a CT scan performed. That revealed a couple of areas of fat strandinginterpreted as possible fat necrosis and an area of possible mesenteric panniculitis. The patient'bonifacio has improved since then. She has not noticed any recent drainage from her umbilicus. She has had only 1 episode since I last saw her for that issue. Physical exam: The patient is in no apparent distress. The patient has lost about 60 pounds Breathing is nonlabored. The abdomen is soft with very mild diffuse tenderness. This tenderness extends down onto the pannusand outside of the abdominal cavity. The umbilicus is unremarkable today. I reviewed the patient's recent CT scan with her. It does indeed show a bit of stranding in the deep mesentery and a somewhat nodular appearing area of stranding near the anterior abdominal wall. This anterior area certainly seems consistent with fat necrosis related to her hernia repair, which is not unexpected. Assessment and plan: This is a patient with some recent abdominal pain which has actually improved.There is not any specific treatment for the swelling in the mesentery, particularly since her symptoms have improved. I explained that her hernia appears well-healed. I would not recommend any further treatment or workup at this time. The patient may return to see me on an as-needed basis. A total of 25 minutes was spent today in chart review, patient examination and discussion, and documentation. Ino Monteiro MD [facility] Please route or send letter to: Primary Care Provider (PCP) documented in this encounter Plan of Treatment Not on file documented as of this encounter Visit Diagnoses Diagnosis Abdominal pain, generalized- Primary documented in this encounter Care Teams Supervisor Heavy Equipment Relationship Specialty Start Date End Date Brandy Paz DO [facility] [address] [place] [address] PCP - General Family Medicine 11/10/23 Ino Monteiro MD [address] [place] [address] Assigned Surgical Provider 10/04/21 documented as of this encounter
--- OUTSIDE RECORDS SUMMARY | 2024-02-26 03:36 | XMS_ITS | Referral Summary ---
Author Organization [place] Address [address] [place] [address] Care Team Providers Care Boston Cutter Name Role Phone Ino Monteiro MD Unavailable [phone] Brandy Paz DO Primary Care Provider [phone] Shania Matthews APRN [employer] TECHNICIAN Unavailable [phone] Laurie Larson Unavailable Encounters Date Type Department Care Team Description 02/17/2024 MyC Medical Advice [address] [place] [address] Efren Mosley MD 02/11/2024 Travel 02/11/2024 9:45 AM TRANSIT BUS OPERATOR Lab [facility] [address] [place] [address] [address] [place] [address] Coronary artery calcification of [place] artery; Elevated LDL cholesterol level 02/08/2024 Travel 02/08/2024 3:30 PM TRANSIT BUS OPERATOR Office Visit 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 [address] [place] [address] Ino Monteiro MD Surgical Followup (Bleeding and smell form umbilical area) 12/08/2023 MyC Medical Advice [facility] [address] [facility] [address] [place] [phone] Laurie Larson PA 11/29/2023 Travel 11/29/2023 Telephone [facility] [address] [place] [phone] Laurie Larson PA Call Back ([facility] records) 11/29/2023 4:00 PM CDT Office Visit [facility] [address] [facility] [address] [place] [phone] Laurie Larson PA Coronary artery calcification of [place]tool[place] artery (Primary Dx); Elevated LDL cholesterol level 11/28/2023 Travel from Last 3 Months Allergies Active Allergy Reactions Criticality Noted Date [...] mouth 2 times daily (with meals) 03/28/20 Discontinued (Dose adjustment) triamcinolone (NASACORT ALLERGY 24HR CHILDREN) 55 MCG/ACT nasal aerosol Inhale into affected nostril(s). Discontinued (Dose adjustment) HEMP OIL OR EXTRACT OR OTHER CBD CANNABINOID, NOT MEDICAL CANNABIS, nightly as needed. Discontinued (Therapy completed (No AVS)) atorvastatin (LIPITOR) 20 MG tabletIndications :Coronary artery calcification of [place] artery,Elevated LDL cholesterol level,Hyperlipide sarah beth LDL goal <70 Take 2 tablets (40 mg) by mouth at bedtime. 180 tablet 3 11/24/19 024 Discontinued (Dose adjustment) Active Problems Problem Noted Date Diagnosed Date Morbid obesity 09/29/2021 Social History Tobacco Use Types Packs/Day Years [...] file Travel History Travel Start Travel End [place] 01/08/2024 02/06/2024 Last Filed Vital Signs Vital Sign Reading Time Taken Comments Blood Pressure 114/76 02/08/2024 3:29 PM TRANSIT BUS OPERATOR Pulse 63 02/08/2024 3:29 PM TRANSIT BUS OPERATOR Temperature 36.2 C (97.1 F) 10/26/2022 2:50 PM CDT Respiratory Rate 16 11/23/2023 1:14 PM CDT Oxygen Saturation 99% 02/08/2024 3:29 PM TRANSIT BUS OPERATOR Inhaled Oxygen Concentration - - Weight 126.1 kg (278 lb) 02/08/2024 3:29 PM TRANSIT BUS OPERATOR Height 167.6 cm (5' 6) 02/08/2024 3:29 PM TRANSIT BUS OPERATOR Body Mass Index 44.87 02/08/2024 3:29 PM TRANSIT BUS OPERATOR Plan of Treatment Not on file Medical Devices Implanted Type Area Foreign Banknote Teller Device Identifier Shelf Expiration Date Model / Serial / Lot Mesh Ventralight St System 4x6 Ellipse [id number] - [id number] Implanted:Qty: 1 on 10/26/2022 by Ino Monteiro MD at [facility] Mesh N/A: Abdomen CR [employer] [id number] 06/02/2024 [id number] / / [id number] Procedures Procedure Name Priority Date/Time Associated Diagnosis Comments LIPID REFLEX TO DIRECT LDL PANEL Routine 02/11/2024 9:47 AM TRANSIT BUS OPERATOR Coronary artery calcification of [place] artery Elevated LDL cholesterol level from Last 3 Months Results * (ABNORMAL) Lipid panel reflex to direct LDL Fasting (02/11/2024 9:47 AM TRANSIT BUS OPERATOR) Cholesterol 108 <200 mg/dL 02/11/2024 5:36 PM TRANSIT BUS OPERATOR [facility] Triglycerides 100 <150 mg/dL 02/11/2024 5:36 PM TRANSIT BUS OPERATOR [facility] Direct Measure HDL 36(L) >=50 mg/dL 2023 5:36 PM TRANSIT BUS OPERATOR [facility] LDL Cholesterol Calculated 52 <100 mg/dL 02/11/2024 5:36 PM TRANSIT BUS OPERATOR [facility] Non HDL Cholesterol 72 <130 mg/dL 02/11/2024 5:36 PM TRANSIT BUS OPERATOR [facility] Patient Fasting > 8hrs? Yes 02/11/2024 5:36 PM TRANSIT BUS OPERATOR [facility] Blood STRUCTURE OF LEFT UPPER LIMB / Unknown Venipuncture / Unknown 02/11/2024 9:47 AM TRANSIT BUS OPERATOR 02/11/2024 9:51 AM TRANSIT BUS OPERATOR Narrative [facility] - 02/11/2024 5:36 PM TRANSIT BUS OPERATOR Cholesterol Desirable: < 200 mg/dL Borderline High: [...] BLOOD ORDERABLES Final Res ult [facility] [place] [facility] [address], [address] [place] [address], [facility] [address] [facility] (1st floor, no room number) [place] [address], [facility] from Last 3 Months Insurance * Guarantor: Reina Blood Account Type Relation to Patient Date of Phone Billing Address Personal/Family Self 1990 none (Work) [address] [place] [id number] MED[employer] CHO[employer] Member Subscriber Plan / Payer (Ef fective 2022-Present) Name:REINA BLOOD Relation to Subscriber:Spouse Name:RITCHIE BLOOD Date of :1992 (Home) Address: [address] [place] [address] Payer ID:[id number] (NAIC) Type:Indemnity Address: [address] [address] * Guarantor: Reina Blood Account Type Relation to Patient Date of Phone Billing Address Personal/Family Self [address] [place] [id number] MED[employer] CHOICE Member Subscriber Plan / Payer (Ef fective 2022-Present) Name:REINA BLOOD Relation to Subscriber:Spouse Name:RITCHIE BLOOD Date of :1992 (Home) Address: [address] [place] [address] Payer ID:[id number] (NAIC) Type:Indemnity Address: [address] [address] Care Teams Boston Cutter Relationship Specialty Start Date End Date Brandy Paz DO [address] [address] PCP - General Family Medicine 11/10/23 Ino Monteiro MD [address] [facility] [address] [place] [address] Assigned Surgical Provider 10/04/21 Shania Matthews APRN [employer] TECHNICIAN [address] [place], [place] [address] Nurse Practitioner Cardiovascular Disease 11/24/23 Laurie Larson PA [facility] [address] [place] [phone] Assigned Heart and Vascular Provider 12/27/23
--- OUTSIDE RECORDS SUMMARY | 2024-02-26 03:37 | XMS_ITS | Continuity of Care Document ---
Author Organization [facility] [place] Address [address] [place] [address] Care Team Providers Care [place] Machine Operator Name Role Phone GIOVANA BARNES Primary Care Provider CRISTIAN ALLRED Referring Provider FADIA DAWN Physical Therapist Assessment Encounter Date Assessment Date Assessment LastModified by Organization Details LastModified Time 12/17/2023 12/17/2023 Today I reviewed the diagnosis, contributing factors and treatment options. I reviewed and reinforced continued use of self care and home exercises. I encouraged daily home care use which may consist of heat and ice compresses, oral habit reduction and relaxation techniques. Ruslan presents with symptom flare. Today I reviewed self care and continued treatment with physical therapy. Today a round of trigger point injections was completed. No intra-operative complications were encountered. Patient will monitor for adverse effects including injection site pain, infection etc. I also recommended fabrication of an intraoral appliance. Dental scans were taken today for Ruslan to begin the fabrication process of a mandibular stabilization appliance. I discussed medication options. Today a prescription for cyclobenzaprine 5 mg qhs, was provided to the patient. The risks and benefits associated with the prescribed medication was discussed with the patient today. Patient was asked to discontinue medication intake and return to clinic if significant side effects were noted from the medication. I suggested follow up in 2-4 weeks. History today was obtained from the patient. The patient has 5+ diagnoses which we are addressing. Their symptoms are flared. This case is moderate complexity because of multiple diagnoses with chronic symptoms. Risk of complications include disease/symptom progression were discussed. Today time spent may have included a review of past records, history taking, review of diagnoses, contributing factors, treatment plan, diagnostic testing, prognosis, expectations, risks and complications of treatment/no treatment, discussions with other providers and completing documentation was 35 minutes. I suggested that (s)he return for follow-up care in 2-4 weeks. Not available 12/21/2023 14:29:24 Plan of Treatment Reminders Order Date Submit Date Provider Last Modified By Organization Details Last Modified Time Details Appointments None recorded. Lab None recorded. Referral None recorded. Procedures None recorded. Surgeries None recorded. Imaging None recorded. Medication Orders cyclobenzap rine 5 mg tablet 2023 024 [email or web address] 4 [id number], [address] [place], [place], [phone], 17:03:09 Patient TargetsNo targets recorded. Patient Instructions Encounter Date Encounter Id Patient Instructions Last Modified By Organization Details Last Modified Time 12/17/2023 [id number] oral appliance preparation* Not available 12/21/2023 14:30:05 Reason for Referral None Reported. Results Created Date Observation Date Name Description Value Unit Range Abnormal Flag Note LastModifiedBy Organization Detail LastModifiedTime 12/17/1912/17/2023 oral appli ance prepa ratio n* Type of appliance mandib ular stabil izatio n applia nce Not Available [place] [address], [place], [address], 12/15/2023 14:59:49 12/01/19 24 11/16/2023 XR, ortho panto gram No observ ation record ed. Not Available 2023 16:53:49 Result Notes None recorded. 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 LI JORDAN BDS,MS [address], [place], [address], [facility] 4 10:37:02 Bilateral temporoma ndibular joint pain 401750067550 [address]3532 Active 2023 LI JORDAN BDS,MS [address], [place], [address], [facility] 4 10:36:24 Bilateral referred otalgia of ears 968387556766 9106 Active 2023 LI JORDAN BDS,MS [address], [place], [address], [facility] 4 10:36:24 Sleep related bruxism 006145117 Active 2023 LI JORDAN BDS,MS [address], [place], [address], [facility] 4 10:36:24 Problem Notes None recorded. Procedures Surgical History Date Name Laterality Status Provider Name and Address Organization Details Recorded Time 01/06/20 24 Oral appliance completed Karen Nassar [facility] 01/05/2024 11:47:33 12/17/19 24 Trigger point injection completed LI JORDAN BDS,MS [address], [place], [address], [facility] 12/21/2023 14:25:30 Cholecystectomy completed [facility] 12/01/2023 16:35:34 section completed [facility] 12/01/2023 16:35:53 Tubal Ligation completed [facility] 12/01/2023 16:36:02 Imaging Results None recorded. Procedure Notes None recorded. Medical Equipment None Reported. Allergies Allergen ID Allergen Name Allergen Category Reaction Reaction Severity Criticality Documentation Date Start Date Code Code System Note Provider Name and Address Organization Details Recorded Time 90125 Medicinal product containin g penicilli n and acting as antibacte rial agent (product) medicatio n hives moderate Not available 12/01/20231993 33378 05 SNOMED [facility] 16:04:17 Medications [...] Not Available Not Available Not Available Vitals None Recorded Social History Question Answer Notes LastModified by Organizat ion Details LastModified Time Tobacco Smoking Status Never Smoker Judy Ayah [facility] 12/01/2023 16:33:25 [...] Y Coronary Artery Disease Y Other Y Post traumatic stress disorder (PTSD) Y Obstructive Sleep Apnea Y Arthritis Y Acid Reflux (GERD) Y Vertigo Y High Cholesterol Y Sleep Disorder Y Hypertension Y Gynecological HistoryNo gynecological history recorded. Obstetrics History GPAL:G 0 P 0 0 0 0 Immunizations Vaccine Type Date Status Provider Name and Address Organization Details Recorded Time influenza, unspecified formulation 12/04/2022 completed Judy de la garza, [facility] 12/01/2023 16:10:28 SARS-COV-2 (COVID-19) vaccine, UNSPECIFIED 06/04/2023 completed Judy de la garza, [facility] 12/01/2023 16:11:32 influenza, unspecified formulation 12/05/2023 completed Judy de la garza, [facility] 01/06/2024 17:04:22 SARS-COV-2 (COVID-19) vaccine, UNSPECIFIED 01/04/2024 completed Judy de la garza, [facility] 01/06/2024 17:04:44 Past Encounters Encounter ID Performer Location Encounter Start Date Encounter Closed Date Diagnosis/Indication Diagnosis SNOMED-CT Code Diagnosis ICD10 Code [id number] LI JORDAN BDS,MS [place] [address] [place] [id number] 12/01/2023 15:57:55 12/01/2023 17:23:18 Articular disc disorder of temporomandibular joint 66892866 M26.633 Myofascial pain 81503285 9 M79.11 M79.12 Bilateral temporomandibular joint pain 3967737491 8833603 M26.623 Bilateral referred otalgia of ears 5680877604 970146 H92.03 Sleep related bruxism 27 5828555 G47.63 Episodic t ension-type headache 572888575 G44.219 [id number] LI JORDAN BDS,MS [place] [address] [place] [address] 12/17/2023 13:58:22 12/17/2023 15:25:29 Articular disc disorder of temporomandibular joint 67962852 M26.633 Myofascial pain 80565953 9 M79.11 M79.12 Bilateral temporomandibular joint pain 1649771794 6920156 M26.623 Episodic t ension-type headache 509988561 G44.219 Bilateral referred otalgia of ears 6884989271 030595 H92.03 Sleep related bruxism 27 1178676 G47.63 Health Concerns Section Related Observation LastModified by Organization Miguel ls LastModified Time None Recorded Concern Status LastModified by Organization Details LastModified Time None Recorded Payers Encounter Date Sequence Insurance Name Policy Number Policy Loza Covered Member ID Loza Member ID Guarantor Name 12/17/2023 1 [employer] [facility] [id number] Woody Blood [id number] Ruslan Blood Notes Date Note Type Note Provider Name and Address Organization Details Recorded Time 12/17/2023 text/html general HPI for jaw, face, TMD painReported bypatient.Onset:gra dual Location:bilateral; mandibular; preauricular Quality:dull; aching; sharp Severity:pain level 0-8/10 Durationintermitten t Symptom triggers:clenching; bruxism; stress; anxiety; chews hard/crunchy/chewy foods Aggravating Factors:yawning; wide mouth opening; dental work Alleviating Factors:acetaminoph en; ice Associated Symptoms:jaw clicking;jaw popping;tooth pain(lower left area);malocclusion; headaches;tinnitus Patient presents today for follow-up. They report jaw symptoms which are {{improved stable c hronic chronic and progressive worsene d unchanged flared* resolved}} since the previous visit. Symptoms and pertinent information along with prior data was reviewed, updated and documented in the patient history of present illness. Patient rates the pain intensity as {{0 1 2 3 4 5 6* 7 8 9 10}} on a scale of 0 to 10. Patient is {{engaged in* not engaged in partially engaged in completed discon tinued}} active treatment at this time. Ruslan is present for her first Trigger point injections and dental scans for a mandibular stabilization appliance. Ruslan has a question regarding trigger point injection and eliquis. Ruslan has not scheduled PT in [place] with Fadia Dawn, but is doing home care exercises. Ruslan continues to get headaches 1-2 times a month. Ruslan had a physical and has hypertension stage 1. She no longer takes sertaline or vyvanse. She has noted that she was flared in the last 2 weeks and attributes this to high stress. She is aware of clenching at night and that disrupts her sleep. She is aware of snoring, multiple awakenings per night and has difficulty falling back asleep. She LI JORDAN, MAEGAN,MS [address] [facility] [address], [place], [address], [facility] 12/21/2023 14:30:07 OBGyn Episode No OBEpisode recorded.
--- OUTSIDE RECORDS SUMMARY | 2024-02-26 03:37 | XMS_ITS | Continuity of Care Document ---
Author Organization [facility], [place] Address [address] [place] [address] Care Team Providers Care Cryptanalyst Name Role Phone GIOVANA BARNES Primary Care Provider [phone] CRISTIAN ALLRED Referring Provider RODNEY PEREZ Physical Therapist Assessment Encounter Date Assessment Date Assessment LastModified by Organization Details LastModified Time 12/01/2023 12/01/2023 Today I spent a considerable amount of time discussing the patients past medical and personal history, as well as performing a physical examination all of which is documented in it's entirety in the electronic health record. I reviewed the pathophysiology of the disorder, potential contributing and risk factors as well as treatment options to address their complaints. I discussed the pros and cons of advanced imaging with CT. Today no imaging was obtained. Today previous panoramic imaging from 11/16/23 was reviewed with patient. In this radiograph the mandibular condyles were partially visualized and appear relatively normal in morphology. There was no other suggestion of osseous or odontogenic abnormalities. I believe it is reasonable to defer advanced imaging at this time. From a treatment perspective I recommended a rehabilitative treatment approach. Treatment begins with home self management designed to rest the muscles of mastication and reduce inflammation in the temporomandibular joints. This includes heat and ice compresses, eating a soft food or pain-free diet, bilateral chewing identifying and decreasing daytime muscle tension and modification of their sleep position. Today I taught simple jaw exercises designed to improve the jaw mechanics and movement, improve range of mouth opening and improve TM joint fluid circulation to facilitate healing. This includes jaw rotation, simple stretch and relaxed breathing. This was both demonstrated and given in written format. Concurrently I taught proper posture. Beyond self management I believe that they would benefit from a mandibular intraoral appliance. This will be considered in follow up. In addition I've recommended rehabilitation with physical therapy. A referral was provided. We mutually agreed to defer medication management at this time. I suggested supplementation with Magnesium glycinate at bedtime. I discussed the interplay of muscle tension, poor sleep and chronic pain. I recommended side sleeping, elevating head of bed, discussed sleep hygeine measures. I answered questions on trigger point injections and Onabotulinum toxin injections for management of myofascial pain. Information on trigger point injections was provided today. The goal of treatment is to improve pain, function and focus on long-term self-management strategies. I believe that by following these treatment recommendations there is a good prognosis for reduction of symptoms. History was obtained from the patient. The patient has 5+ diagnoses they would like to address. This case is moderate complexity because of multiple diagnoses with chronic symptoms. Data reviewed included: previous imaging. Risk of complications include progressive disease/symptoms. Today time spent may have included a review of past records, history taking, review of diagnoses, contributing factors, treatment plan, diagnostic testing, prognosis, expectations, risks and complications of treatment/no treatment, discussions with other providers and completing documentation was 60 minutes. Cost of care and insurance coverage was reviewed and discussed with the patient. Not available 12/03/2023 10:37:34 Plan of Treatment Reminders Order Date Submit Date Provider Last Modified By Organization Details Last Modified Time Details Appointments None recorded . Lab None recorded . Referral physical therapis t referral - please contact patient to schedule 2023 024 KIM RODRIGUEST, [facility] [address], [place], [address], 10:40:11 Procedures None recorded . Surgeries None recorded . Imaging CT, temporal bone, w/o contrast 2023 024 Not available 10:37:57 Medication Orders None recorded . Patient TargetsNo targets recorded. Patient Instructions Encounter Date Encounter Id Patient Instructions Last Modified By Organization Details Last Modified Time 12/01/2023 [id number] Self Care for TMD Not availab le 12/03/2023 10:37:57 Three Jaw Exercises Not available 12/03/2023 10:37:57 oral appliance preparation* Not available 12/03/2023 10:37:59 trigger point injection information Not available 12/03/2023 10:37:57 Contributing factors identified at today's appointment include: postural factors, daytime clenching, sleep bruxism, oral habits, stress, tension and difficulty relaxing. Not available 11/29/2023 12:23:41 Reason for Referral Physical Therapist Referral for Articular disc disorder of temporomandibular joint please contact patient to schedule Referring Physician: Ashtyn Jordan, Pain Management, Encounter Date: 12/01/2023 Results Created Date Observation Date Name Description Value Unit Range Abnormal Flag Note LastModifiedBy Organization Detail LastModifiedTime 12/03/19 24 12/03/2023 oral appli ance prepa ratio n* Type of appliance mandib ular stabil izatio n applia nce Not Available [facility] [address], [place], [address], 12/03/2023 10:26:07 12/01/19 24 11/16/2023 XR, ortho panto gram No observ ation record ed. Not Available 2023 16:53:49 Result Notes None recorded. 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 34586794 Active 2023 Bilateral TMJ disc displacem ent with reduction with intermitt ent catching Rule out L>R TMJ DJD ASHTYN JORDAN BDS,MS [address], [place], [address], [facility] 10:36:52 Myofascia l pain 027097833 Active 2023 [place] and cervical muscles ASHTYN JORDAN BDS,MS [address], [place], [address], [facility] 4 10:37:25 Episodic tension-t ype headache 334570564 Active 2023 Replicate d by cervical muscle palpation . ASHTYN JORDAN BDS,MS [address], [place], [address], [facility] 4 10:37:02 Bilateral temporoma ndibular joint pain 958231055040 62118 Active 2023 ASHTYN JORDAN BDS,MS [address], [place], [address], [facility] 4 10:36:24 Bilateral referred otalgia of ears 948149115715 9106 Active 2023 ASHTYN JORDAN BDS,MS [address], [place], [address], [facility] 4 10:36:24 Sleep related bruxism 141509374 Active 2023 ASHTYN JORDAN BDS,MS [address], [place], [address], [facility] 4 10:36:24 Problem Notes None recorded. Procedures Surgical History Date Name Laterality Status Provider Name and Address Organization Details Recorded Time 01/06/20 24 Oral appliance completed Karen Nassar [facility] 01/05/2024 11:47:33 12/17/19 24 Trigger point injection completed ASHTYN JORDAN BDS,MS [address], [place], [address], [facility] 12/21/2023 14:25:30 Cholecystectomy completed Judy Poon [facility] 12/01/2023 16:35:34 section completed Judy Poon [facility] 12/01/2023 16:35:53 Tubal Ligation completed Judy Poon [facility] 12/01/2023 16:36:02 Imaging Results None recorded. Procedure Notes None recorded. Medical Equipment None Reported. Allergies Allergen ID Allergen Name Allergen Category Reaction Reaction Severity Criticality Documentation Date Start Date Code Code System Note Provider Name and Address Organization Details Recorded Time 77851 Medicinal product containin g penicilli n and acting as antibacte rial agent (product) medicatio n hives moderate Not available 12/01/20231993 43143 05 SNOMED Judy Poon [facility] [...] Last Updated DateTime 168.91 cm 44 kg/m2 724625. 09 g 73 /min 121 mm[Hg] 85 mm[Hg] Judy Poon [facility] 16:10:34 Social History Question Answer Notes LastModified by Organizat ion Details LastModified Time Tobacco Smoking Status Never Smoker Judy Poon [facility] [...] Y Acid Reflux (GERD) Y Vertigo Y Sleep Disorder Y High Cholesterol Y Obstructive Sleep Apnea Y Hypertension Y Gynecological HistoryNo gynecological history recorded. Obstetrics History GPAL:G 0 P 0 0 0 0 Immunizations Vaccine Type Date Status Provider Name and Address Organization Details Recorded Time influenza, unspecified formulation 12/04/2022 completed [place] [facility] 12/01/2023 16:10:28 SARS-COV-2 (COVID-19) vaccine, UNSPECIFIED 06/04/2023 completed Judy de la garza, [place] [facility] 12/01/2023 16:11:32 influenza, unspecified formulation 12/05/2023 completed Judy de la garza, [facility] 01/06/2024 17:04:22 SARS-COV-2 (COVID-19) vaccine, UNSPECIFIED 01/04/2024 completed Judy de la garza [facility] 01/06/2024 17:04:44 Past Encounters Encounter ID Performer Location Encounter Start Date Encounter Closed Date Diagnosis/Indication Diagnosis SNOMED-CT Code Diagnosis ICD10 Code [id number] ASHTYN JORDAN BDS,MS [place] [facility] [address] [place] [address] 12/01/2023 15:57:55 12/01/2023 17:23:18 Articular disc disorder of temporomandibular joint 56462591 M26.633 Myofascial pain 88749466 9 M79.11 M79.12 Bilateral temporomandibular joint pain 4560699818 5115061 M26.623 Bilateral referred otalgia of ears 7183948038 517141 H92.03 Sleep related bruxism 27 0963804 G47.63 Episodic t ension-type headache 358236892 G44.219 Health Concerns Section Related Observation LastModified by Organization Detai ls LastModified Time None Recorded Concern Status LastModified by Organization Details LastModified Time None Recorded Payers Encounter Date Sequence Insurance Name Policy Number Policy Loza Covered Member ID Loza Member ID Guarantor Name 12/01/2023 1 [employer] [id number] Woody Blood [id number] Ruslan Blood Notes Date Note Type Note Provider Name and Address Organization Details Recorded Time 12/01/2023 text/html general HPI for jaw, face, TMD painReported bypatient.Onset:gradua l Location:bilateral; mandibular; preauricular Quality:dull; aching; sharp Severity:pain level 0-8/10 Durationintermittent Symptom triggers:clenching; bruxism; stress; anxiety; chews hard/crunchy/chewy foods Aggravating Factors:yawning; wide mouth opening; dental work Alleviating Factors:acetaminophen; ice Associated Symptoms:jaw clicking;jaw popping;tooth pain(lower left area);malocclusion;hea daches;tinnitus Patient presents today for evaluation of a possible temporomandibular disorder. These symptoms are {{acute chronic*}} and began with {{ no clear triggering events* significant stress and tension}}. Previous consultation include {{ none evaluation with his/her primary care provider* evaluation with his/her dentist evaluation with both his/her dentist and primary care provider}}. Symptoms are {{right sided only left sided only bilateral*}} and aggravated by {{ no clear triggers* jaw use and function clenching and grinding of their teeth stress and tension}}. The patient is {{aware* not aware}} of teeth clenching and grinding. Ruslan is referred by her ENT for her main concern of ear pain, jaw pain and tooth pain which started about one year ago. Associated symptoms include jaw joint noises, 2 episodes of jaw locking (quick in nature), neck pain and headaches. Her headaches are in her temples, behind her ears and bridge of nose area and will occur 1-2 times per month. She describes as sharp to throbbing type pain. OTC Tylenol will help reduce her pain. Previous treatment: mouthguard (not helpful), ice packs (helpful), OTC Tylenol (not helpful)Previous imaging: possible panoTrauma history: none Sleep: Not great. She states it's hard to fall asleep. Issues with hormones. Ruslan reports being aware of jaw pain and headaches over the last year or so. She reports that her symptoms started as ear pain, RSV and poor sleep. She was evaluated by an ENT and was treated for ear and nose symptoms. She reports that her symptoms are worsening over the last few months presenting as jaw pain and tightness. She has experienced jaw locking for a few times, self limiting. Ruslan reports headaches presenting in back of neck, temporal regions presenting asBeyza reports neck pain and tightness which is chronic. She attributes this to stress and posture. She denies nausea, vomiting, light and sound sensitivity. Ruslan reports a sleep evaluation was completed 2 months ago. She was diagnosed with Mild MERRY. She is currently not treating her apnea. She was also diagnosed with nasal septum deviation and tonsillar enlargement She is exploring tonsillectomy and deviated nasal septum correction. She has tried and failed CPAP. She would like to consider alternative treatments if ENT surgery is not helpful. She is scheduled for an upcoming consult. 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 ASHTYN JORDAN, MAEGAN,MS [address], [place], [address], [facility] 12/03/2023 10:38:01 OBGyn Episode No OBEpisode recorded.
== END 2024-02-22 14:12 | disposition home or self-care (01) ==
LOC: NFLDREF 02-26 03:34
PROVIDERS: PCP Family Medicine; Referring Provider Family Medicine; Visit Provider Orthopaedic Surgery
DX: M10.9 Gout, unspecified (principal); M79.675 Pain in left toe(s)
CPT/HCPCS: 84550

== ENCOUNTER 2024-04-14 09:51 | Day surgery (SDC) | payer OTHER, SELFPAY ==
--- OUTSIDE RECORDS SUMMARY | 2024-04-04 13:20 | XMS_ITS | Data Portability ---
Author Organization [place] [facility] [place] [facility] Address [address] [address] Care Team Providers Care Muffler Installer Name Role Phone GIOVANA BARNES Primary Care Provider CRISTIAN ALLRED Referring Provider [phone] FADIA DAWN Physical Therapist Assessment Encounter Date [...] with the patient. Not available 12/03/2023 10:37:34 12/17/2023 12/17/2023 Today I reviewed the diagnosis, [...] in 2-4 weeks. Not available 12/21/2023 14:29:24 01/06/2024 01/06/2024 Patient was seen today for [...] with physical therapy. Ruslan will connect with [place] [facility] and schedule in the upcoming weeks. [...] contact patient to schedule 2023 024 KIM Dawn DPT, [address] , [place], [address], 10:40:11 Procedures None recorded . Surgeries None recorded . Imaging CT, temporal bone, w/o contrast 2023 024 Not available 10:37:57 Medication Orders cycloben zaprine 5 mg tablet 2023 024 [id number], [address], [place], [place], [phone], 17:03:09 Patient TargetsNo targets recorded. Patient Instructions Encounter Date Encounter Id Patient Instructions Last Modified By Organization Details Last Modified Time 12/01/2023 [id number] Self Care for TMD Not availab le 12/03/2023 10:37:57 Three Jaw Exercises Not available 12/03/2023 10:37:57 oral appliance preparation* Not available 12/03/2023 10:37:59 trigger point injection information Not available 12/03/2023 10:37:57 Contributing factors identified at today's appointment include: postural factors, daytime clenching, sleep bruxism, oral habits, stress, tension and difficulty relaxing. Not available 11/29/2023 12:23:41 12/17/2023 [id number] oral appliance preparation* Not available 12/21/2023 14:30:05 Reason for Referral Physical Therapist Referral for [...] stabil izatio n applia nce Not Available [place] [address] [address], [place], [address], 12/03/2023 10:26:07 12/17/19 24 12/17/2023 oral appli ance prepa ratio n* Type of appliance mandib ular stabil izatio n applia nce Not Available [place] [address], [place], [address], 12/15/2023 14:59:49 12/01/1911/16/2023 XR, ortho panto gram No observ ation record ed. Not Available 2023 16:53:49 Result Notes None recorded. 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 ASHTYN JORDAN BDS,MS [address], [place], [address], [facility] 4 10:37:02 Bilateral temporoma ndibular joint pain 536862061032 49663 Active 2023 ASHTYN JORDAN BDS,MS [address], [place], [address], [facility] 4 10:36:24 Bilateral referred otalgia of ears 266077254139 9106 Active 2023 ASHTYN JORDAN BDS,MS [address], [place], [address], [facility] 4 10:36:24 Sleep related bruxism 124958262 Active 2023 ASHTYN JORDAN BDS,MS [address], [place], [address], [facility] 4 10:36:24 Problem Notes None recorded. Procedures Surgical History Date Name Laterality Status Provider Name and Address Organization Details Recorded Time 01/06/20 24 Oral appliance completed Karen Nassar [facility] 01/05/2024 11:47:33 12/17/19 24 Trigger point injection completed ASHTYN JORDAN BDS,MS [address], [place], [address], [facility] 12/21/2023 14:25:30 [facility] 12/01/2023 16:35:34 section completed [facility] 12/01/2023 16:35:53 Tubal Ligation completed [facility] 12/01/2023 16:36:02 Imaging Results Imaging Date Name Status LastModified by Organization Details LastModified Time 11/16/2023 XR, orthopantogram completed Inform ation not available 12/01/2023 16:53:49 Procedure Notes None recorded. Medical Equipment None Reported. Allergies Allergen ID Allergen Name Allergen Category Reaction Reaction Severity Criticality Documentation Date Start Date Code Code System Note Provider Name and Address Organization Details Recorded Time 20926 Medicinal product containin g penicilli n and acting as antibacte rial agent (product) medicatio n hives moderate Not available 12/01/20231993 53701 05 SNOMED [facility] [...] Last Updated DateTime 168.91 cm 44 kg/m2 070108. 09 g 73 /min 121 mm[Hg] 85 mm[Hg] Judy Poon [facility] 16:10:34 Date Recorded Body height Body mass index (BMI) Body weight Heart rate Systolic blood pressure Diastolic blood pressure Provider Name and Address Organization Details Last Updated DateTime 168.91 cm 44 kg/m2 273054. 09 g 58 /min 118 mm[Hg] 87 mm[Hg] Judy Poon [facility] 17:01:42 Social History Question Answer Notes LastModified by Organizat ion Details LastModified Time Tobacco Smoking Status Never Smoker Judy Poon [facility] [...] Y Arthritis Y Acid Reflux (GERD) Y Sleep Disorder Y Vertigo Y High Cholesterol Y Hypertension Y Gynecological HistoryNo gynecological history recorded. Obstetrics History GPAL:G 0 P 0 0 0 0 Immunizations Vaccine Type Date Status Note Provider Nam e and Address Organization Details Recorded Time influenza, unspecified formulation 12/04/2022 completed NE[place] Yeager [facility] 12/01/2023 16:10:28 SARS-COV-2 (COVID-19) vaccine, UNSPECIFIED 06/04/2023 NEY Pedroza [facility] 12/01/2023 16:11:32 influenza, unspecified formulation 12/05/2023 geneva de la garza [facility] 01/06/2024 17:04:22 SARS-COV-2 (COVID-19) vaccine, UNSPECIFIED 01/04/2024 NEY Pedroza [facility] 01/06/2024 17:04:44 Past Encounters Encounter ID Performer Location Encounter Start Date Encounter Closed Date Diagnosis/Indication Diagnosis SNOMED-CT Code Diagnosis ICD10 Code [id number] ASHTYN JORDAN BDS,[place] [address] [place] [address] 12/01/2023 15:57:55 12/01/2023 17:23:18 Articular disc disorder of temporomandibular joint 66115279 M26.633 Myofascial pain 37475170 9 M79.11 M79.12 Bilateral temporomandibular joint pain 1615731567 5752423 M26.623 Bilateral referred otalgia of ears 6807734739 009980 H92.03 Sleep related bruxism 27 3549539 G47.63 Episodic t ension-type headache 306006471 G44.219 [id number] ASHTYN SARAH JORDANS,MS [place] [address] [place] [address] 12/17/2023 13:58:22 12/17/2023 15:25:29 Articular disc disorder of temporomandibular joint 68138355 M26.633 Myofascial pain 08883286 9 M79.11 M79.12 Bilateral temporomandibular joint pain 6440205710 4151795 M26.623 Episodic t ension-type headache 972858445 G44.219 Bilateral referred otalgia of ears 7483266483 865878 H92.03 Sleep related bruxism 27 5543516 G47.63 [id number] ASHTYN SARAH JORDANS,MS [place] [address] [place] [address] 01/06/2024 16:48:02 01/06/2024 17:34:26 Articular disc disorder of temporomandibular joint 61517713 M26.633 Myofascial pain 94695533 9 M79.11 M79.12 Bilateral temporomandibular joint pain 8817933243 7866717 M26.623 Episodic t ension-type headache 840026403 G44.219 Bilateral referred otalgia of ears 0961145199 450357 H92.03 Sleep related bruxism 27 2773461 G47.63 Health Concerns Section Related Observation LastModified by Organization Detai ls LastModified Time None Recorded Concern Status LastModified by Organization Details LastModified Time None Recorded Advance Directives Directive None Recorded Payers Encounter Date Sequence Insurance Name Policy Number Policy Loza Covered Member ID Loza Member ID Guarantor Name 12/01/2023 1 [facility] [id number] Woody Blood [id number] Ruslan Blood 12/17/2023 1 [employer] [id number] Woody Blood [id number] Ruslan Blood 01/06/2024 1 [facility] [id number] [facility] [id number] Rulsan Blood Notes Date Note Type Note Provider [...] in back of neck, temporal regions presenting Sugey reports neck pain and tightness which is [...] 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 ASHTYN JORDAN, MAEGAN,MS [address] [facility] [address], [place], [address], [facility] 12/03/2023 10:38:01 12/17/2023 text/html general HPI for jaw, face, TMD painReported bypatient.Onset:gradua l Location:bilateral; mandibular; preauricular Quality:dull; aching; sharp Severity:pain level 0-8/10 Durationintermittent Symptom triggers:clenching; bruxism; stress; anxiety; chews hard/crunchy/chewy foods Aggravating Factors:yawning; wide mouth opening; dental work Alleviating Factors:acetaminophen; ice Associated Symptoms:jaw clicking;jaw popping;tooth pain(lower left area);malocclusion;hea daches;tinnitus Patient presents today for follow-up. They report jaw symptoms which are {{improved stable consultant dietitian ryan chronic and progressive worsened u nchanged flared* resol ruthann}} since the previous visit. Symptoms and pertinent information along with prior data was reviewed, updated and documented in the patient history of present illness. Patient rates the pain intensity as {{0 1 2 3 4 5 6* 7 8 9 10}} on a scale of 0 to 10. Patient is {{engaged in* not engaged in partially engaged in completed discontin ued}} active treatment at this time. Ruslan is present for her first Trigger point injections and dental scans for a mandibular stabilization appliance. Ruslan has a question regarding trigger point injection and eliquis. Ruslan has not scheduled PT in [place] with Fadia Dawn, but is doing home [...] and has difficulty falling back asleep. She ASHTYN JORDAN, SARAHS,MS [address] [facility] [address], [place], [address], [facility] 12/21/2023 14:30:07 01/06/2024 text/html general HPI for jaw, face, TMD painReported bypatient.Onset:starte d 2+ year(s) ago; gradual Location:bilateral; mandibular; preauricular Quality:dull; aching; sharp Severity:pain level 0-8/10 Durationintermittent Symptom triggers:clenching; bruxism; stress; anxiety; chews hard/crunchy/chewy foods Aggravating Factors:yawning; wide mouth opening; dental work Alleviating Factors:acetaminophen; ice Associated Symptoms:jaw clicking;jaw popping;tooth pain(lower left area);malocclusion;hea daches;tinnitus Patient presents today for insertion of a {{mandibular stabilization* maxilla ry stabilization Irene dual opposing repositioning mandibular advancement (Somnomed [place] Advanced Elite) mandibular advancement (Somnomed Air/Dorsal) mandibular advancement (Somnomed [place]) Irene Elevate 9A Irene Elevate 4A Panthera Classic}} oral appliance. They note {{no changes in improved worsening* }} symptoms which along with prior data was reviewed, updated and documented in the patient history of present illness. (S)he describes {{compliance* partial compliance non-complia nce}} with home self care as previously recommended. [...] has not gotten started with PT in [place], [place]. She would like to, but needs to find the right time for it. TPI - she finds the injections helpful but short lasting. She denies adverse effects but would like to defer them. ASHTYN JORDAN, SARAHS,MS [address] [facility] [address], [place], [address], [facility] 01/07/2024 09:32:23 OBGyn Episode No OBEpisode recorded.
--- OUTSIDE RECORDS SUMMARY | 2024-04-04 13:20 | XMS_ITS | Continuity of Care Document ---
Author Organization [facility] [place] Address [address] [place] [address] Care Team Providers Care Certified Residential Medication Aide Name Role Phone GIOVANA BARNES Primary Care Provider [phone] CRISTIAN ALLRED Referring Provider [phone] RODNEY PEREZ Physical Therapist Assessment Encounter Date [...] with physical therapy. Ruslan will connect with [facility] and schedule in the upcoming weeks. 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 66013538 Active 2023 Bilateral TMJ disc displacem ent with reduction with intermitt ent catching Rule out L>R TMJ DJD LI JORDAN BDS,MS [address] [facility] [address], [place], [address], [facility] 4 10:36:52 Myofascia l pain 924666081 Active 2023 [place] and cervical muscles LI JORDAN BDS,MS [address] [facility] [address], [place], [address], [facility] 4 10:37:25 Episodic tension-t ype headache 346778491 Active 2023 Replicate d by cervical muscle palpation . LI JORDAN BDS,MS [address], [place], [address], [place] [facility] 4 10:37:02 Bilateral temporoma ndibular joint pain 148586740342 26271 Active 2023 LIHO JORDAN BDS,MS [address], [place], [address], [place] [facility] 4 10:36:24 Bilateral referred otalgia of ears 109386267476 9106 Active 2023 SARAH SHEEHANSudarshan,MS [address], [place], [address], [facility] 4 10:36:24 Sleep related bruxism 120941109 Active 2023 LIHO JORDAN BDS,MS [address], [place], [address], [facility] 4 10:36:24 Problem Notes None recorded. Procedures Surgical History Date Name Laterality Status Provider Name and Address Organization Details Recorded Time 01/06/20 24 Oral appliance completed Karen Nassar [facility] 01/05/2024 11:47:33 12/17/19 24 Trigger point injection completed LI JORDAN BDS,MS [address], [place], [address], [facility] 12/21/2023 14:25:30 Cholecystectomy completed Judy Poon [facility] 12/01/2023 16:35:34 section completed Judy Poon [facility] 12/01/2023 16:35:53 Tubal Ligation completed Judy Poon [facility] 12/01/2023 16:36:02 Imaging Results None recorded. Procedure Notes None recorded. Medical Equipment None Reported. Allergies Allergen ID Allergen Name Allergen Category Reaction Reaction Severity Criticality Documentation Date Start Date Code Code System Note Provider Name and Address Organization Details Recorded Time 69280 Medicinal product containin g penicilli n and acting as antibacte rial agent (product) medicatio n hives moderate Not available 12/01/20231993 28402 05 SN[facility]ED [facility] 16:04:17 [...] Last Updated DateTime 168.91 cm 44 kg/m2 426291. 09 g 58 /min 118 mm[Hg] 87 mm[Hg] Judy Poon [facility] 17:01:42 Social History Question Answer Notes LastModified by Organizat ion Details LastModified Time Tobacco Smoking Status Never Smoker Judy Poon [facility], [facility] 12/01/2023 16:33:25 [...] 12/04/2022 completed Judy de la garza, [facility] 12/01/2023 16:10:28 SARS-COV-2 (COVID-19) vaccine, UNSPECIFIED 06/04/2023 completed Judy de la garza, [facility] 12/01/2023 16:11:32 influenza, unspecified formulation 12/05/2023 completed Judy de la garza, [facility] 01/06/2024 17:04:22 SARS-COV-2 (COVID-19) vaccine, UNSPECIFIED 01/04/2024 completed Judy de la garza, [facility] 01/06/2024 17:04:44 Past Encounters Encounter ID Performer Location Encounter Start Date Encounter Closed Date Diagnosis/Indication Diagnosis SNOMED-CT Code Diagnosis ICD10 Code [id number] LI JORDAN BDS,MS [place] [address] [place] [address] 12/17/2023 13:58:22 12/17/2023 15:25:29 Articular disc disorder of temporomandibular joint 20898566 M26.633 Myofascial pain 05215372 9 M79.11 M79.12 Bilateral temporomandibular joint pain 6893474949 7498150 M26.623 Episodic t ension-type headache 556065474 G44.219 Bilateral referred otalgia of ears 7264281352 162091 H92.03 Sleep related bruxism 27 9983909 G47.63 [id number] LI JORDAN BDS,MS [place] [address] [place] [address] 01/06/2024 16:48:02 01/06/2024 17:34:26 Articular disc disorder of temporomandibular joint 29175366 M26.633 Myofascial pain 40336927 9 M79.11 M79.12 Bilateral temporomandibular joint pain 0652270230 7863033 M26.623 Episodic t ension-type headache 508900291 G44.219 Bilateral referred otalgia of ears 2865827736 282632 H92.03 Sleep related bruxism 27 0327346 G47.63 Health Concerns Section Related Observation LastModified by Organization Detai ls LastModified Time None Recorded Concern Status LastModified by Organization Details LastModified Time None Recorded Payers Encounter Date Sequence Insurance Name Policy Number Policy Loza Covered Member ID Loza Member ID Guarantor Name 01/06/2024 1 [facility]ab P. Tabatabai[facility] [id number] Woody Blood [id number] Ruslan Caitie Notes Date Note Type Note [...] has not gotten started with PT in [place], [place]. She would like to, but needs to find the right time for it. TPI - she finds the injections helpful but short lasting. She denies adverse effects but would like to defer them. LI JORDAN, MAEGAN,MS [address] [facility] [address], [place], [address], [facility] 01/07/2024 09:32:23 OBGyn Episode No OBEpisode recorded.
[2024-04-14] VITALS (22 sets, daily range): BP systolic 105–147; BP diastolic 57–112; PULSE 66–114; RESP 16; TEMP 36.4–36.8; O2SAT 92–100; BMI 44.6
[2024-04-14 10:13] LABS: Ur HCG Qualitative* Negative (Negative)
[2024-04-14] MEDS: SODIUM CHLORIDE 0.9 % (FLUSH) 10 ML SYRINGE IVF (11:43)
[2024-04-14] MEDS: 0.9 % SODIUM CHLORIDE 500 ML 500 ML 100 ML IV (11:45)
[2024-04-14] MEDS: COCAINE HCL 4 % 4 ML SOLUTION NOSTRIL-B (12:14)
[2024-04-14] MEDS: BUPIVACAINE 0.5%/EPINEPHRINE 0.9 MG (30.9 ML) INJECTION (12:26)
[2024-04-14] MEDS: AYR SALINE NASAL GEL 1 APPLIC NOSTRIL-B (12:38)
[2024-04-14] MEDS: MUPIROCIN 1 GM PACKET 1 APPLIC TOPICAL (12:39)
--- NOTE | 2024-04-14 12:52 | W.PM.ENTPROC ---
Procedure Note Date of procedure: 04/14/24 Procedure: Preoperative diagnosis chronic tonsillitis, adenotonsillar hypertrophy, upper airway obstruction, nasal obstruction, septal deviation, left middle turbinate fadia bullosa, bilateral inferior turbinate hypertrophy Postoperative diagnosis same Procedure adenotonsillectomy, nasal septoplasty, endoscopic partial resection left middle turbinate fadia bullosa, submucous partial resection inferior turbinates bilateral Under general endotracheal anesthesia the patient was prepped and draped in usual fashion. The nose was decongested with cocaine pledgets The McIvor mouth gag was inserted the tongue retracted forward. No submucous cleft was noted on inspection or palpation. The right and left tonsils were removed with a combination of needlepoint cautery, bipolar cautery and suction cautery. Meticulous hemostasis was achieved. The adenoid pad was visualized with a laryngeal mirror and removed with suction cautery. Attention was turned to the nose. I recounted glove. The nose was then injected. A right hemitransfixion incision was made left anterior and posterior tunnels were created. A vertical incision was made through the cartilage anterior the bone a right posterior tunnel created exposing the right area 4 5 septal impaction. A cut was made above and below this with an angled scissors and this was removed. A large piece of bone was trimmed and returned to the intraseptal space. The hemitransfixion was closed with 2 4-0 chromic sutures. A stab incision was made in the anterior of the right inferior turbinate a tunnel created with a Kashmir dissector. The fadia bone was outfractured and a conservative anterior submucous resection performed. The Coblation was used for hemostasis and to cauterize intramurally along the inferior 10%. This was repeated on the left side in identical fashion This portion of procedure was done with the available assistance of a 0 degree endoscope. The fadia was injected and then incised along its inferolateral aspect. A small amount of bone was resected and then the remainder of the fadia bullosa was crushed with the Herbster forceps. Silastic stents were secured with 3-0 nylon and dissolvable gel packing as well as Merocel packing was placed in the middle meatus on each side. The patient was extubated in the operating room taken recovery in satisfactory condition. Blood loss was less than 25 mL. Surgeon: Mc Peters MD
--- NOTE | 2024-04-14 12:58 | P.ANES_ITS ---
Anesthesia Charges Start Date/Time Anesthesia Start Date: 04/14/24 Anesthesia Start Time: 11:56 Stop Date/Time Anesthesia Stop Date: 04/14/24 Anesthesia Stop Time: 12:59 Coding CPT Codes CPT Codes: ANESTH PROCEDURE ON MOUTH - 86585 ([id number]) P3 - PATIENT W/SEVERE SYS DISEASE, QK - TOURIST AGENT 2-4 CNCRNT ANES PROC, QX - PRECISION INSPECTOR SVC W/ MD MED DIRECTION
--- NOTE | 2024-04-14 12:58 | W.ANESCHARGE ---
Anesthesia Charges Start Date/Time Anesthesia Start Date: 04/14/24 Anesthesia Start Time: 11:56 Stop Date/Time Anesthesia Stop Date: 04/14/24 Anesthesia Stop Time: 12:59 Coding CPT Codes CPT Codes: ANESTH PROCEDURE ON MOUTH - 70402 ([id number]) P3 - PATIENT W/SEVERE SYS DISEASE, QK - WOOD CABINETMAKER 2-4 CNCRNT ANES PROC, QX - FRONT OFFICE JAVA DEVELOPER SVC W/ MD MED DIRECTION
[2024-04-14] MEDS: fentaNYL 100 MCG/2 ML inj 50 MCG IVP ×2 (13:05→13:15)
--- NOTE | 2024-04-14 13:06 | P.ANES_ITS ---
Anesthesia Charges Start Date/Time Anesthesia Start Date: 04/14/24 Anesthesia Start Time: 11:56 Stop Date/Time Anesthesia Stop Date: 04/14/24 Anesthesia Stop Time: 12:59 Coding CPT Codes CPT Codes: ANESTH PROCEDURE ON MOUTH - 80795 ([id number]) QK - PHYSIOTHERAPY ASSISTANT 2-4 CNCRNT ANES PROC, QX - PUNCH BOX TENDER SVC W/ MD MED DIRECTION, P3 - PATIENT W/SEVERE SYS DISEASE
--- NOTE | 2024-04-14 13:06 | W.ANESCHARGE ---
Anesthesia Charges Start Date/Time Anesthesia Start Date: 04/14/24 Anesthesia Start Time: 11:56 Stop Date/Time Anesthesia Stop Date: 04/14/24 Anesthesia Stop Time: 12:59 Coding CPT Codes CPT Codes: ANESTH PROCEDURE ON MOUTH - 43861 ([id number]) QK - SCHOOL GUARD 2-4 CNCRNT ANES PROC, QX - BAIT PAINTER SVC W/ MD MED DIRECTION, P3 - PATIENT W/SEVERE SYS DISEASE
[2024-04-14] MEDS: OXYCODONE 1 MG/ML ORAL SOLN 5 MG PO ×2 (13:57→19:14)
[2024-04-14] MEDS: IBUPROFEN 100 MG/5 ML SUSP 200 MG PO ×2 (13:58→22:02)
--- NOTE | 2024-04-14 14:40 | SUR.PHASEII ---
Patient's family at the bedside. Family aware patient to move to med surg. Patient will be able to contact them with room number or return to ER to check-in and will be notified of room number.
[2024-04-14] MEDS: ACETAMINOPHEN 160 MG/5 ML CUP 320 MG PO ×2 (14:59→19:14)
[2024-04-14] MEDS: FAMOTIDINE 20 MG TABLET PO (20:38)
--- NOTE | 2024-04-14 23:20 | PC.NURSE ---
Pt arrived to the unit @ 1645. AxOx4, pleasant, and cooperative. VSS on RA. LSCTA. Pt passing gas. Pt continent of the bladder. BS active. Bandage to the nasal redressed x3 per Pt request. Small blood drainage noted. Esophagus assessed with no concern. Pt tolerated ice chips, apple sauce, and popsicle well. Bubble by @ 10L at arrival, Pt using intermittently for throat irritation. Pt reports throat pain that is managaed with ice and PRN medication. Continuous sats being monitored. SL. Pt watching television resting comfortably, call light within reach.
[2024-04-15 02:57] VITALS: BP 123/88; PULSE 77; RESP 16; TEMP 36.4; O2SAT 96
[2024-04-15] MEDS: OXYCODONE 1 MG/ML ORAL SOLN 5 MG PO ×2 (02:59→07:25)
[2024-04-15] MEDS: IBUPROFEN 100 MG/5 ML SUSP 200 MG PO (02:59)
--- NOTE | 2024-04-15 05:40 | PC.NURSE ---
Shift note: Pt is doing well ambulating independent in the room. Pleasant, alert and oriented. Endorsed mild pain at the beginning of the shift. However, at 0300 pain was rated at 8/10. PRN med given per request. Dressing to the nose was periodically changed. No active bleeding but the dressing soaked with blood. She was able to eat popsicle and applesauce tonight. Vitally stable. Denied postnasal drip. No face swelling noted.
[2024-04-15] MEDS: ACETAMINOPHEN 160 MG/5 ML CUP 320 MG PO (07:26)
[2024-04-15 07:42] VITALS: BP 124/89; PULSE 73; RESP 14; TEMP 36.5; O2SAT 96
--- NOTE | 2024-04-15 10:17 | PC.NURSE ---
Discharge: Patient pleasant and cooperative. Up independently, tolerating soft diet, denies nausea. Pain managed with PRN medication, see MAR. Patient discharge instructions given, discussed symptoms to watch for post-op that may need immediate intervention, discussed pain management at time. Patient aware of follow up appointment. Discussed medication changed per orders. IV removed with catheter intact. Vitals stable and WNL. Temp taken prior to discharge and was 97.8. Throat looked at with flashlight, no active bleeding noted. Patient sent home with additional dressings for nose. Discharged @ 0959.
== END 2024-04-15 09:59 | disposition home or self-care (01) ==
LOC: OR 09:53 → MEDSURG 04-15 07:41
PROVIDERS: Anesthesiology; PCP Family Medicine; Visit Provider Otolaryngology
PROC: (CPT 31231; principal; 2024-04-14 11:00)
DX: J35.01 Chronic tonsillitis (principal); J35.3 Hypertrophy of tonsils with hypertrophy of adenoids; J34.2 Deviated nasal septum; J34.3 Hypertrophy of nasal turbinates; J34.89 Other specified disorders of nose and nasal sinuses
CPT/HCPCS: 42821; 30520; 30140; 31240; 00170; 81025; 88304; A9270; J0330; J1100; J2250; J2405; J2704; J3010; J7030

== ENCOUNTER 2024-04-21 19:10 | Emergency (ER) | payer OTHER, SELFPAY ==
--- OUTSIDE RECORDS SUMMARY | 2024-04-21 19:12 | XMS_ITS | Data Portability ---
Author Organization [place] [facility] Address [address] [address] Care Team Providers Care Shopper Insights Manager Name Role Phone GIOVANA BARNES Primary Care [...] with physical therapy. Ruslan will connect with [place] [facility] and schedule in the upcoming weeks. [...] 024 KIM Dawn DPT, [address] , [place], [address], 10:40:11 Procedures None recorded . Surgeries None recorded . Imaging CT, temporal bone, w/o contrast 2023 024 Not available 10:37:57 Medication Orders cycloben zaprine 5 mg tablet 2023 024 [id number], [address], [place], [place], [id number], 17:03:09 Patient TargetsNo targets recorded. Patient Instructions Encounter Date Encounter Id Patient Instructions Last Modified By Organization Details Last Modified Time 12/01/2023 [id number] Self Care for TMD Not availab le 12/03/2023 10:37:57 Three Jaw Exercises Not available 12/03/2023 10:37:57 oral appliance preparation* Not available 12/03/2023 10:37:59 trigger point injection information Not available 12/03/2023 10:37:57 Contributing factors identified at today's appointment include: postural factors, daytime clenching, sleep bruxism, oral habits, stress, tension and difficulty relaxing. Not available 11/29/2023 12:23:41 12/17/2023 [id number] oral appliance preparation* Not available 12/21/2023 14:30:05 [...] stabil izatio n applia nce Not Available [place] [address] [facility] [address], [place], [address], 12/03/2023 10:26:07 12/17/19 24 12/17/2023 oral appli ance prepa ratio n* Type of appliance mandib ular stabil izatio n applia nce Not Available [place] [address], [place], [address], 12/15/2023 14:59:49 12/01/1911/16/2023 XR, ortho panto gram No observ ation record ed. Not Available 2023 16:53:49 Result Notes None recorded. 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 Active 2023 Bilateral TMJ disc displacem ent with reduction with intermitt ent catching Rule out L>R TMJ DJD ASHTYN JORDAN, BDS,MS [address], [place], [address] , [facility] 08/30/202 4 10:36:52 Myofascia l pain 830664011 Active 2023 [place] and cervical muscles ASHTYN JORDAN BDS,MS [address], [place], [address], [facility] 4 10:37:25 Episodic tension-t ype headache 044931384 Active 2023 Replicate d by cervical muscle palpation . ASHTYN JORDAN BDS,MS [address], [place], [address], [facility] 4 10:37:02 Bilateral temporoma ndibular joint pain 602102877052 56122 Active 2023 ASHTYN JORDAN BDS,MS [address], [place], [address], [facility] 4 10:36:24 Bilateral referred otalgia of ears 676554726361 9106 Active 2023 ASHTYN JORDAN BDS,MS [address], [place], [address], [facility] 4 10:36:24 Sleep related bruxism 954572206 Active 2023 ASHTYN JORDAN BDS,MS [address], [place], [address], [facility] 4 10:36:24 Problem Notes None recorded. Procedures Surgical History Date Name Laterality Status Provider Name and Address Organization Details Recorded Time 01/06/20 24 Oral appliance completed Kraen Nassar [facility] 01/05/2024 11:47:33 12/17/19 24 Trigger point injection completed ASHTYN JORDAN BDS,MS [address], [place], [address], [facility] 12/21/2023 14:25:30 [facility] 12/01/2023 16:35:34 section completed [facility] 12/01/2023 16:35:53 Tubal Ligation completed [facility] 12/01/2023 16:36:02 [...] Name and Address Organization Details Recorded Time 93512 Medicinal product containin g penicilli n and acting as antibacte rial agent (product) medicatio n hives moderate Not available 12/01/20231993 55826 05 SNOMED [facility] 16:04:17 Medications [...] Last Updated DateTime 168.91 cm 44 kg/m2 733154. 09 g 73 /min 121 mm[Hg] 85 mm[Hg] Judy Poon [facility] 16:10:34 Date Recorded Body height Body mass index (BMI) Body weight Heart rate Systolic blood pressure Diastolic blood pressure Provider Name and Address Organization Details Last Updated DateTime 168.91 cm 44 kg/m2 459886. 09 g 58 /min 118 mm[Hg] 87 mm[Hg] Judy Poon [facility] 17:01:42 Social History Question Answer Notes LastModified by Organizat ion Details LastModified Time Tobacco Smoking Status Never Smoker Judy Poon [facility] 12/01/2023 [...] influenza, unspecified formulation 12/04/2022 completed [place] Yeager [facility] 12/01/2023 16:10:28 SARS-COV-2 (COVID-19) vaccine, UNSPECIFIED 06/04/2023 [place] Pedroza [facility] 12/01/2023 16:11:32 influenza, unspecified formulation 12/05/2023 geneva de la garza [facility] 01/06/2024 17:04:22 SARS-COV-2 (COVID-19) vaccine, UNSPECIFIED 01/04/2024 gen[place] de la garza [facility] 01/06/2024 17:04:44 Past Encounters Encounter ID Performer Location Encounter Start Date Encounter Closed Date Diagnosis/Indication Diagnosis SNOMED-CT Code Diagnosis ICD10 Code Diagnosis Note [id number] ASHTYN JORDAN BDS,[place] [address] [place] [address] 12/01/2023 15:57:55 12/01/2023 17:23:18 Articular disc disorder of temporomandibular joint 15740013 M26.633 Bilateral TMJ disc displaceme nt with reduction with intermitte nt catchingRu le out L>R TMJ DJD Myofascial pain 60158241 9 M79.11 M79.12 Antique Clock Repairer y and cervical muscles Bilateral temporomandibular joint pain 6779726857 9203291 M26.623 Bilateral referred otalgia of ears 2375250591 465986 H92.03 L>R ear Sleep related bruxism 27 7270994 G47.63 Episodic t ension-type headache 365847049 G44.219 Replicated by cervical muscle palpation. [id number] ASHTYN SARAH JORDANS,MS [place] [address] [place] [address] 12/17/2023 13:58:22 12/17/2023 15:25:29 Articular disc disorder of temporomandibular joint 87327387 M26.633 Bilateral TMJ disc displaceme nt with reduction with intermitte nt catchingRu le out L>R TMJ DJD Myofascial pain 97700035 9 M79.11 M79.12 Antique Clock Repairer y and cervical muscles Bilateral temporomandibular joint pain 4091443458 0995875 M26.623 Episodic t ension-type headache 215948665 G44.219 Replicated by cervical muscle palpation. Bilateral referred otalgia of ears 9232488474 305608 H92.03 L>R ear Sleep related bruxism 27 7113726 G47.63 [id number] ASHTYN SARAH JORDANS,MS [place] [address] [facility] [place] [facility] [place] [address] 01/06/2024 16:48:02 01/06/2024 17:34:26 Articular disc disorder of temporomandibular joint 51963752 M26.633 Bilateral TMJ disc displaceme nt with reduction with intermitte nt catchingRu le out L>R TMJ DJD Myofascial pain 59854438 9 M79.11 M79.12 Antique Clock Repairer y and cervical muscles Bilateral temporomandibular joint pain 9183128886 4731269 M26.623 Episodic t ension-type headache 878393721 G44.219 Replicated by cervical muscle palpation. Bilateral referred otalgia of ears 8616582955 531048 H92.03 L>R ear Sleep related bruxism 27 9492415 G47.63 Health Concerns Section Related Observation LastModified by Organization Detai ls LastModified Time None Recorded Concern Status LastModified by Organization Details LastModified Time None Recorded Advance Directives Directive None Recorded Payers Encounter Date Sequence Insurance Name Policy Number Policy Loza Covered Member ID Loza Member ID Guarantor Name 12/01/2023 1 [place] [id number] [facility] Lisbeth Caitie [id number] Ruslan Blood 12/17/2023 1 [employer] [id number] [facility] Caitie [id number] Ruslan Blood 01/06/2024 1 [employer] [id number] [facility] [id number] Ruslan [facility] Notes Date Note Type Note Provider Name [...] in back of neck, temporal regions presenting asBagustin reports neck pain and tightness which is [...] will be 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 ASHTYN JORDAN BDS,MS [address] [facility] [address], [place], [address], [facility] 12/03/2023 [...] report jaw symptoms which are {{improved stable chronometer tester ryan chronic and progressive worsened u nchanged [...] eliquis. Ruslan has not scheduled PT in [place] with Fadia Dawn, but is doing home [...] difficulty falling back asleep. She ASHTYN JORDAN, MAEGAN,MS [address] [facility] [address], [place], [address], [facility] 12/21/2023 [...] Irene dual opposing repositioning mandibular advancement (Somnomed Espy Advanced Elite) mandibular advancement (Somnomed Air/Dorsal) mandibular advancement (Somnomed Venango) Irene Elevate 9A Ierne Elevate 4A Panthera Classic}} oral appliance. They [...] has not gotten started with PT in [place], [place]. She would like to, but needs to find the right time for it. TPI - she finds the injections helpful but short lasting. She denies adverse effects but would like to defer them. ASHTYN JORDAN, MAEGAN,MS [address] [facility] [address], [place], [address], [facility] 01/07/2024 09:32:23 OBGyn Episode No OBEpisode recorded.
[2024-04-21 19:13] VITALS: BP 132/78; PULSE 82; RESP 16; TEMP 36.1; O2SAT 98; BMI 42.8
--- NOTE | 2024-04-21 19:31 | CRLHL7_ITS ---
For Patients: As a result of the Century Cures Act, medical imaging exams and procedure reports are released immediately into your electronic medical record. You may view this report before your referring provider. If you have questions, please contact your health care provider. INDICATION: Leg pain and swelling. TECHNIQUE: Ultrasound venous duplex lower right extremity. Compression venous exam was performed using okeefe-scale, color Doppler, and spectral Doppler analysis. COMPARISON: None. FINDINGS: Deep veins: Sonographic imaging demonstrates the right common femoral, deep femoral, superficial femoral, popliteal, posterior tibial and the contralateral left common femoral veins to be fully compressible with normal color Doppler blood flow. Superficial veins: Greater saphenous vein is fully compressible. No popliteal cyst. IMPRESSION: No DVT in the right lower extremity. Dictated by Phong Lucas MD @ 04/21/2024 9:00:30 PM (Electronically Signed)
--- OUTSIDE RECORDS SUMMARY | 2024-04-21 19:37 | XMS_ITS | Clinical Summary ---
Author Organization [facility] Address [address] [place] [address] Care Team Providers Care Information Security Analyst Name Role Phone Ino Monteiro MD Unavailable [phone] Brandy Paz DO Primary Care Provider [phone] Shania Matthews APRN BRUSH CLEARER SURVEYING Unavailable [phone] Laurie Larson Unavailable Allergies Active Allergy Reactions Criticality Noted Date Comments Penicillins Hives,Unknown Medium 04/09/2015 As a child Medications apixaban ANTICOAGULANT (ELIQUIS) 5 MG tablet Take 5 mg by mouth 2 times daily 4 Active famotidine (PEPCID) 20 MG tablet Take 20 mg by mouth 2 times daily Active atorvastatin (LIPITOR) 40 MG tablet Take 40 mg by mouth daily. 4 Active cyclobenzaprine (FLEXERIL) 5 MG tablet Take 5 mg by mouth as needed (Jaw pain). 4 Active metFORMIN (GLUCOPHAGE) 1000 MG tablet Take 1,000 mg by mouth 2 times daily (with meals). 4 Active medical cannabis (Patient's own supply) as needed (Sleep). (The purpose of this order is to document that the patient reports taking medical cannabis. This is not a prescription, and is not used to certify that the patient has a qualifying medical condition.) Active Active Problems Problem Noted Date Diagnosed Date Morbid obesity 09/29/2021 Encounters Date Type Department Care Team Description 03/24/2024 [facility] [address] [place] [address] Asuncion Amos RN 03/24/2024 Telephone [facility] [address] [facility] [address] [place] [address] Asuncion Amos RN 03/21/2024 My[facility] Medical Advice [facility] [address] [place] [address] Laurie Larson PA 02/17/2024 MyC Medical Advice [facility] [address] [place] [address] Efren Mosley MD 02/11/2024 9:45 AM HIGH RAW SUGAR BOILER Lab [facility] [address] [facility] [address] [place] [address] Coronary artery calcification of chenega artery; Elevated LDL cholesterol level 02/11/2024 Travel 02/08/2024 3:30 PM HIGH RAW SUGAR BOILER Office Visit [facility] [address] [facility] [address] [place] [address] Ino Monteiro MD Omphalitis in adult (Primary Dx) 02/08/2024 Travel 01/25/2024 Telephone [facility] [address] [place] [address] Ino Monteiro MD Surgical Followup (Bleeding and smell form umbilical area) from Last 3 Months Social History Tobacco [...] on file Sexual Orientation Not on file Last Filed Vital Signs Vital Sign Reading Time Taken Comments Blood Pressure 114/76 02/08/2024 3:29 PM HIGH RAW SUGAR BOILER Pulse 63 02/08/2024 3:29 PM HIGH RAW SUGAR BOILER Temperature 36.2 C (97.1 F) 10/26/2022 2:50 PM CDT Respiratory Rate 16 11/23/2023 1:14 PM CDT Oxygen Saturation 99% 02/08/2024 3:29 PM HIGH RAW SUGAR BOILER Inhaled Oxygen Concentration - - Weight 126.1 kg (278 lb) 02/08/2024 3:29 PM HIGH RAW SUGAR BOILER Height 167.6 cm (5' 6) 02/08/2024 3:29 PM HIGH RAW SUGAR BOILER Body Mass Index 44.87 02/08/2024 3:29 PM HIGH RAW SUGAR BOILER Plan of Treatment Health Maintenance Due Date Last Done Comments ADVANCE CARE PLANNING 1990 ANNUAL REVIEW OF HM ORDERS 1991 HIV SCREENING 2006 HEPATITIS C SCREENING 2009 Pneumococcal Vaccine: Pediatrics (0 to 5 Years) and At-Risk Patients (6 to 49 Years) (1 of 2 - PCV) 2010 PHQ-2 (once per calendar year) 2024 11/11/2023 PAP 05/06/2024 05/06/2021 YEARLY PREVENTIVE VISIT 12/16/2024 12/17/2023, 07/15 LIPID 02/10/2025 02/11/2024, 11/13/2023 DTAP/TDAP/TD IMMUNIZATION (8 - Td or Tdap) 01/21/2028 01/20/2018, 01/21/2009, 11/15/1996, Additional history exists RSV VACCINE (1 - 1-dose 75+ series) 2066 HEPATITIS B IMMUNIZATION Completed 998, 01/04/1997, 11/15/1996 INFLUENZA VACCINE Completed 12/17/2023, , 06/17/2023, Additional [...] this topic Medical Devices Implanted Type Area Casualty Claims Supervisor Device Identifier Shelf Expiration Date Model / Serial / Lot Mesh Ventralight St System 4x6 Ellipse [id number] - [id number] Implanted:Qty: 1 on 10/26/2022 by Ino Monteiro MD at [facility] Mesh N/A: Abdomen CR [employer] [id number] 06/02/2024 [id number] / / [id number] Procedures Procedure Name Priority Date/Time Associated Diagnosis Comments LIPID REFLEX TO DIRECT LDL PANEL Routine 02/11/2024 9:47 AM HIGH RAW SUGAR BOILER Coronary artery calcification of chenega artery Elevated LDL cholesterol level from Last 3 Months Results * (ABNORMAL) Lipid panel reflex to direct LDL Fasting (02/11/2024 9:47 AM HIGH RAW SUGAR BOILER) Cholesterol 108 <200 mg/dL 02/11/2024 5:36 PM HIGH RAW SUGAR BOILER [facility] Triglycerides 100 <150 mg/dL 02/11/2024 5:36 PM HIGH RAW SUGAR BOILER [facility] Direct Measure HDL 36(L) >=50 mg/dL 2023 5:36 PM HIGH RAW SUGAR BOILER [facility] LDL Cholesterol Calculated 52 <100 mg/dL 02/11/2024 5:36 PM HIGH RAW SUGAR BOILER [facility] Non HDL Cholesterol 72 <130 mg/dL 02/11/2024 5:36 PM HIGH RAW SUGAR BOILER [facility] Patient Fasting > 8hrs? Yes 02/11/2024 5:36 PM HIGH RAW SUGAR BOILER [facility] Blood STRUCTURE OF LEFT UPPER LIMB / Unknown Venipuncture / Unknown 02/11/2024 9:47 AM HIGH RAW SUGAR BOILER 02/11/2024 9:51 AM HIGH RAW SUGAR BOILER Narrative [facility] - 02/11/2024 5:36 PM HIGH RAW SUGAR BOILER Cholesterol Desirable: < 200 mg/dL Borderline High: [...] - BLOOD ORDERABLES Final Res ult LABORATORY [facility] [address] [facility] [address] [place] [address], [facility] [address] Lab (1st floor, no room number) [place] [address], [facility] from Last 3 Months Insurance * Guarantor: Reina Blood Account Type Relation to Patient Date of Phone Billing Address Personal/Family Self 1990 none (Work) [address] [place] [address] [employer] CHO[employer] Member Subscriber Plan / Payer (Ef fective 2022-Present) Name:REINA BLOOD Relation to Subscriber:Spouse Name:RITCHIE BLOOD Date of :1992 (Home) Address: [address] [place] [address] Payer ID:[id number] (NAIC) Type:Indemnity Address: [facility] [address] [place] [address] * Guarantor: Reina Blood Account Type Relation to Patient Date of Phone Billing Address Personal/Family Self 1990 [address] [place] [address] [employer] CHO[employer] Member Subscriber Plan / Payer (Ef fective 2022-Present) Name:REINA BLOOD Relation to Subscriber:Spouse Name:RITCHIE BLOOD Date of :1992 (Home) Address: [address] [place] [address] Payer ID:[id number] (NAIC) Type:Indemnity Address: [address] [address] Care Teams Information Security Analyst Relationship Specialty Start Date End Date Brandy Paz DO [email or web address] [address] [place] [address] PCP - General Family Medicine 11/10/23 Ino Monteiro MD [address] [facility] [address] [place], [place] [phone] Assigned Surgical Provider 10/04/21 Shania Matthews, PRODUCT DEVELOPMENT SPECIALIST BRUSH CLEARER SURVEYING [address] [place], [place] [address] Nurse Practitioner Cardiovascular Disease 11/24/23 Laurie Larson PA [facility] [address] [place] [id number] Assigned Heart and Vascular Provider 12/27/23
--- NOTE | 2024-04-21 19:38 | ED_ITS ---
HPI - General Adult General Date Seen: 04/21/24 Chief complaint: Extremity Pain/Injury, Lower Stated complaint: Post Op Complications/ DVT? Time Seen by Provider: 04/21/24 19:20 Source: patient Mode of arrival: ambulatory Limitations: no limitations History of Present Illness HPI narrative: Patient is a 34-year-old female presenting to the emergency department for right thigh pain. She states the thigh pain started yesterday. Is on the medial aspect in upper thigh. 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 She stop the Eliquis to 2 weeks ago for her surgery. She had a tonsillectomy and deviated septum repair performed by Dr. Millan of ENT. She has not restarted the Eliquis since then. She started having this pain and was told to come in for evaluation of a DVT. She is not having any shortness of breath. Did states she occasionally might have some mild chest pain when she takes her oxycodone. Denies fevers, chills, lightheadedness, dizziness, w eakness, numbness. No other concerns noted. Related Data Home Medications ?Medication ?Instructions ?Recorded ?Confirmed metformin 500 mg tablet 1,000 mg PO BIDWMEAL 09/10/23 04/20/24 metformin 1,000 mg tablet 1,000 mg PO BID 02/22/24 04/20/24 atorvastatin 40 mg tablet 40 mg PO DAILY 03/08/24 04/20/24 famotidine 20 mg tablet (Pepcid) 20 mg PO QDAY 03/08/24 04/20/24 cyclobenzaprine 5 mg tablet 5 mg PO QPM pain 04/11/24 04/20/24 Previous Rx's ?Medication ?Instructions ?Recorded albuterol sulfate 90 mcg/actuation 2 puff inhalation Q4-6H PRN 03/08/24 aerosol inhaler shortness of breath or wheezing #6.7 grams doxycycline hyclate 100 mg capsule 100 mg PO BID #10 caps 04/14/24 ondansetron 4 mg disintegrating 4 mg PO Q8H #10 tabs 04/14/24 tablet oxycodone 5 mg/5 mL oral solution 5 mg (5 mL) PO Q4-6H PRN pain #200 04/18/24 mL Allergies Allergy/AdvReac Type Severity Reaction Status Date / Time penicillin V Allergy Mild Hives Verified 04/20/24 10:25 Review of Systems Status of ROS: Reports: 10 or more systems reviewed and unremarkable except as noted in History and below [facility] History Nausea ?R11.0 - Nausea (ICD-10) Shortness of breath ?R06.02 - Shortness of breath (ICD-10) Morbid obesity with BMI of 45.0-49.9, adult ?E66.01 - Morbid (severe) obesity due to excess calories (ICD-10) ?Z68.42 - Body mass index [BMI] 45.0-49.9, adult (ICD-10) Pharyngitis ?J02.9 - Acute pharyngitis, unspecified (ICD-10) Breast lump ?N63.0 - Unspecified lump in unspecified breast (ICD-10) Peripheral tear of medial meniscus of right knee ?S83.221A - Peripheral tear of medial meniscus, current injury, right knee, i nitial encounter (ICD-10) Complete tear of right ACL ?S83.511A - Sprain of anterior cruciate ligament of right knee, initial encounter (ICD-10) GERD (gastroesophageal reflux disease) ?K21.9 - Gastro-esophageal reflux disease without esophagitis (ICD-10) ADHD ?F90.9 - Attention-deficit hyperactivity disorder, unspecified type (ICD-10) Anxiety ?F41.9 - Anxiety disorder, unspecified (ICD-10) Insomnia ?G47.00 - Insomnia, unspecified (ICD-10) History of pre-eclampsia (2018) ?Z87.59 - Personal history of other complications of , childbirth and the puerperium (ICD-10) Surgical History S/P medial meniscus repair of right knee ?Z98.890 - Other specified postprocedural states (ICD-10) S/P ACL reconstruction ?Z98.890 - Other specified postprocedural states (ICD-10) History of arthroscopy of right knee (05/07/23) ?Z98.890 - Other specified postprocedural states (ICD-10) Hx of umbilical hernia repair ?Z98.890 - Other specified postprocedural states (ICD-10) ?Z87.19 - Personal history of other diseases of the digestive system (ICD-10) History of cholecystectomy ?Z90.49 - Acquired absence of other specified parts of digestive tract (ICD- 10) History of tubal ligation (2019) ?Z98.51 - Tubal ligation status (ICD-10) History of 2 sections ?Z98.891 - History of uterine scar from previous surgery (ICD-10) Family History Maternal Grandfather Coronary artery disease Dysfunctional gallbladder Stomach ulcer Aunt Breast cancer Paternal Grandmother Diabetes Father Liver disease High blood pressure Mother Mental health disorder Muscle disease Dysfunctional gallbladder Maternal Grandmother Mental health disorder Endometrial cancer Other Colon cancer Thyroid disease Uterine cancer Social History Narrative: . 2 children. 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 Regular exercise, 6x/week, when able. Non-smoker. Alcohol, none. No illicit drug use. Smoking Status: Never smoker Do you use any of these nicotine containing products: None Second hand tobacco smoke exposure: No How often do you have a drink containing alcohol: never How often do you have six or more drinks on one occasion: Never AUDIT-C Alcohol total score: 0 Non-prescribed substance use: marijuana (any form) Non-prescribed substance use details: cbd gummy Caffeine: Yes Are you using contraception or practicing any form of control: No service: No Exam Narrative: Exam Narrative: Const: Well-nourished, Well-developed, in no distress Eyes: PERRL, no conjunctival injection, and symmetrical lids HENT: Atraumatic external nose and ears. Moist mucous membranes. Neck: Symmetric, trachea midline, No thyromegaly. CVS: RRR, No murmurs or gallops. Peripheral pulses 2+ and equal in all extremities, no lower extremity swelling noted. RESP: Unlabored respiratory effort. Clear to auscultation bilaterally. GI: Nontender/Nondistended, No rebound or guarding. MSK:Extremities w/o deformity, Normal Active ROM, mild tenderness noted to right inner thigh and right calf Skin: Warm, Dry. No rashes or lesions. Neuro: Normal Muscle tone, No focal neurological deficits. Psych: Awake, Alert, & Oriented x3. Appropriate mood and affect. Const: Vital Signs, click to edit/add: Vital Signs - 24 hr 04/21/24 19:13 Temperature 97 F L Pulse Rate [Pulse Oximeter] 82 Respiratory Rate 16 Blood Pressure [Ri ght Upper Arm] 132/78 Pulse Oximetry 98 Course Vital Signs Vital signs: Initial Vital Signs Temperature 97 F L 04/21/24 19:13 Temperature Source Temporal Artery Scan 04/21/24 19:13 Pulse Rate 82 04/21/24 19:13 Respiratory Rate 16 04/21/24 19:13 Blood Pressure 132/78 04/21/24 19:13 Blood Pressure Mean 96 04/21/24 19:13 Blood Pressure Position Sitting 04/21/24 19:13 Pulse Oximetry 98 04/21/24 19:13 Vital Signs Temperature 97 F L 04/21/24 19:13 Pulse Rate 82 04/21/24 19:13 Respiratory Rate 16 04/21/24 19:13 Blood Pressure 132/78 04/21/24 19:13 Pulse Oximetry 98 04/21/24 19:13 Temperature 97 F L 04/21/24 19:13 Pulse Rate 82 04/21/24 19:13 Respiratory Rate 16 04/21/24 19:13 Blood Pressure 132/78 04/21/24 19:13 Pulse Oximetry 98 04/21/24 19:13 Medical Decision Making MDM Narrative Medical decision making narrative: Patient is a 34-year-old female presenting to emergency department to rule out DVT. Ultrasound will be ordered. She has not been on blood thinners now for 2 weeks. She does states she is having occasional chest pain but is not having any right now she states it is mostly associated with her oxycodone. Describes it as mild. Is not having any shortness of breath. My concern for a PE is low at this time but will be evaluate if the ultrasound comes back positive for DVT. US show no signs of blood clot. She will be discharged at this time. She is agreeable to this plan. Imaging Data Venous US: Attestation: I have reviewed the pertinent imaging results. Radiologist's impression: No DVT in the right lower extremity. Dictated by Phong Lucas MD @ 04/21/2024 9:00:30 PM Discharge Plan Discharge Clinical Impression: Leg pain Qualifiers: Laterality: right Qualified Code(s): M79.604 - Pain in right leg Patient Disposition: Home, Self-Care Condition: Stable Instructions: Leg Pain (ED) Additional Instructions: At this time we see no signs of blood clots. Return for new or worsening symptoms. Prescriptions: No Action metformin 1,000 mg tablet 1,000 mg PO BID famotidine [Pepcid] 20 mg tablet 20 mg PO QDAY atorvastatin 40 mg tablet 40 mg PO DAILY albuterol sulfate 90 mcg/actuation HFA aerosol inhaler 2 puff inhalation Q4-6H PRN (Reason: shortness of breath or wheezing) Qty: 6.7 0RF oxycodone 5 mg/5 mL solution 5 mg PO Q4-6H PRN (Reason: pain) Qty: 200 0RF metformin 500 mg tablet 1,000 mg PO BIDWMEAL cyclobenzaprine 5 mg tablet 5 mg PO QPM doxycycline hyclate 100 mg capsule 100 mg PO BID Qty: 10 0RF ondansetron 4 mg tablet,disintegrating 4 mg PO Q8H Qty: 10 0RF Follow Up/Referrals: Brandy Paz DO [Primary Care Provider] - Stand Alone Forms: [facility] Info Instructions
--- OUTSIDE RECORDS SUMMARY | 2024-04-21 19:38 | XMS_ITS | Encounter Summary ---
Author Organization [facility] Address [address] [place] [address] Care Team Providers Care Biomedical Engineering Director Name Role Phone Ino Monteiro MD Unavailable [phone] Brandy Paz DO Primary Care Provider [phone] Shania Matthews E JENNIFER YARN CONDITIONER Unavailable [phone] Efren Mosley MD Unavailable [phone] Laurie Larson Unavailable Encounter Details Date Type Department Care Team (Late st Contact Info) Description 11/11/2023 MyC Medical Advice [facility] [place] [address] [facility] [address] [place] [address] Efren Mosley MD [address] [facility] [address] [place] [address] Social History Tobacco Use Types [...] on file Sexual Orientation Not on file documented as of this encounter Plan of Treatment Not on file documented as of this encounter Visit Diagnoses Not on filedocumented in this encounter Care Teams Biomedical Engineering Director Relationship Specialty Start Date End Date Brandy Paz DO [facility] [address] [place] [address] PCP - General Family Medicine 11/10/23 Ino Monteiro MD [address] [place], [place] [phone] Assigned Surgical Provider 10/04/21 Shania Matthews, DIETETIC TECH YARN CONDITIONER [address] [place] [phone] Nurse Practitioner Cardiovascular Disease 11/24/23 Efren Mosley MD [address] [place] [id number] Assigned Heart and Vascular Provider 11/26/23 12/26/23 Laurie Larson PA [facility] [address] [place] [phone] Assigned Heart and Vascular Provider 12/27/23 documented as of this encounter
--- OUTSIDE RECORDS SUMMARY | 2024-04-21 19:38 | XMS_ITS | Encounter Summary ---
Author Organization [facility] Address [address] [place] [address] Care Team Providers Care Pricing Intern Name Role Phone Ino Monteiro MD Unavailable [phone] Brandy Paz DO Primary Care Provider [phone] Shania Matthews APRN INTENSIVIST Unavailable [phone] Laurie Larson Unavailable Encounter Details Date Type Department Care Team (Late st Contact Info) Description 03/24/2024 [facility] Heart [address] [place] [address] Asuncion Amos RN Social History Tobacco Use Types Packs/Day Years [...] on filedocumented in this encounter Care Teams Pricing Intern Relationship Specialty Start Date End Date Brandy Paz DO [facility] [address] [place] [address] PCP - General Family Medicine 11/10/23 Ino Monteiro MD [address] [facility] [address] [place] [address] Assigned Surgical Provider 10/04/21 Shania Matthews APRN INTENSIVIST [address] [place], [place] [address] Nurse Practitioner Cardiovascular Disease 11/24/23 Laurie Larson PA [facility] [address] [place] [address] Assigned Heart and Vascular Provider 12/27/23 documented as of this encounter
--- OUTSIDE RECORDS SUMMARY | 2024-04-21 19:38 | XMS_ITS | Encounter Summary ---
Author Organization [place] Address [address] [place] [address] Care Team Providers Care Retail Support Associate Name Role Phone Ino Monteiro MD Unavailable [phone] Brandy Paz DO Primary Care Provider [phone] Shania Matthews APRN CONSUMER SALES REPRESENTATIVE Unavailable [phone] Efren Mosley MD Unavailable [phone] Laurie Larson Unavailable Encounter Details Date Type Department Care Team (Late st Contact Info) Description 12/08/2023 [facility] [place] Adv[facility] [address] [place] [address] [address] [place] [address] Laurie Larson PA [facility] [address] [place] [address] Social History Tobacco Use Types Packs/Day [...] on filedocumented in this encounter Care Teams Retail Support Associate Relationship Specialty Start Date End Date Brandy Paz DO [facility] [address] [place] [address] PCP - General Family Medicine 11/10/23 Ino Monteiro MD [address] [facility] [address] [place], [place] [address] Assigned Surgical Provider 10/04/21 Shania Matthews APRN CONSUMER SALES REPRESENTATIVE [address] [place] [id number] Nurse Practitioner Cardiovascular Disease 11/24/23 Efren Mosley MD [address] [place] [id number] Assigned Heart and Vascular Provider 11/26/23 12/26/23 Laurie Larson PA [facility] [address] [place] [id number] Assigned Heart and Vascular Provider 12/27/23 documented as of this encounter
--- OUTSIDE RECORDS SUMMARY | 2024-04-21 19:38 | XMS_ITS | Encounter Summary ---
Author Organization [place] Address [address] [place] [address]. [place] [address] Care Team Providers Care Gift Wrapper Name Role Phone Ino Monteiro MD Unavailable [phone] Brandy Paz DO Primary Care Provider [phone] Shania Matthews APRN JACQUARD C[employer] LACER Unavailable [phone] Laurie Larson Unavailable Encounter Details Date Type Department Care Team (Late st Contact Info) Description 02/17/2024 [facility] [place] [facility] [address] [facility] [address] [place] [address] Efren Mosley MD [address] [facility] [address] [place] [address] Social History Tobacco Use Types [...] on filedocumented in this encounter Care Teams Gift Wrapper Relationship Specialty Start Date End Date Brandy Paz DO [address] [place] [address] PCP - General Family Medicine 11/10/23 Ino Monteiro MD [address] [facility] [address] [place], [place] [address] Assigned Surgical Provider 10/04/21 Shania Matthews APRN JACQUARD C[employer] LACER [address] [place], [place] [address] Nurse Practitioner Cardiovascular Disease 11/24/23 Laurie Larson PA [facility] [address] [place] [id number] Assigned Heart and Vascular Provider 12/27/23 documented as of this encounter
--- OUTSIDE RECORDS SUMMARY | 2024-04-21 19:38 | XMS_ITS | Encounter Summary ---
Author Organization [place] Address [address] [place] [address] Care Team Providers Care Provider Relations Representative Name Role Phone Ino Monteiro MD Unavailable [phone] Janet Sue NP Primary Care Provider [phone] Brandy Paz DO Primary Care Provider [phone] Shania Matthews APRN, CNP Unavailable [phone] Efren Mosley MD Unavailable [phone] Laurie Larson Unavailable Encounter Details Date Type Department Care Team (Late st Contact Info) Description 10/13/2023 [facility] [place] [address] [facility] [address] [place] [address] Ino Monteiro MD [address] [facility] [address] [place] [address] Social History Tobacco Use Types [...] on filedocumented in this encounter Care Teams Provider Relations Representative Relationship Specialty Start Date End Date Janet Sue NP [facility] [address] [place] [address] PCP - General 07/08/23 11/09/23 Brandy Paz DO [facility] [address] [place] [address] PCP - General Family Medicine 11/10/23 Ino Monteiro MD [address] [facility] [address] [place], [place] [phone] Assigned Surgical Provider 10/04/21 Shania Matthews APRN CNP [address] [place] [id number] Nurse Practitioner Cardiovascular Disease 11/24/23 Efren Mosley MD [address] [place], [place] [phone] Assigned Heart and Vascular Provider 11/26/23 12/26/23 Laurie Larson PA [facility] [address] [place] [address] [phone] Assigned Heart and Vascular Provider 12/27/23 documented as of this encounter
--- OUTSIDE RECORDS SUMMARY | 2024-04-21 19:38 | XMS_ITS | Clinical Summary ---
Author Organization [facility] Address [place], [place] [address] Care Team Providers Care Screen Cleaner Name Role Phone Brandy Paz DO Primary Care Provider [phone] Allergies Active Allergy Reactions Criticality Noted Date Comments Penicillins *Unknown - Follow up needed,Hives Medium 0 04/09/2015 As a child Medications famotidine (PEPCID) 20 mg tablet Take 20 mg by mouth two times daily. Active atorvastatin (LIPITOR) 40 mg tabletIndications :Coronary artery calcification seen on CT scan Take 1 Tablet (40 mg) by mouth at bedtime. 90 Tablet 3 12/15/19 24 Active metFORMIN (GLUCOPHAGE) 1,000 mg tabletIndications :Polycystic ovary syndrome,Class 3 severe obesity with body mass index (BMI) of 40.0 to 44.9 in adult, unspecified obesity type, unspecified whether serious comorbidity present (HC),Premenstrual dysphoric disorder Take 1 Tablet (1,000 mg) by mouth two times daily with meals. 180 Tablet 3 01/27/20 24 Active cyclobenzaprine (FLEXERIL) 5 mg tablet Take 5 mg by mouth. 12/20/19 24 Active apixaban (ELIQUIS) 5 mg tabletIndications :Acute deep vein thrombosis (DVT) of left lower extremity, unspecified vein (HC) Take 1 Tablet (5 mg) by mouth two times daily. 180 Tablet 2 03/24/20 24 Active apixaban (ELIQUIS) 5 mg tabletIndications :Acute deep vein thrombosis (DVT) of left lower extremity, unspecified vein (HC) Take 1 Tablet (5 mg) by mouth two times daily. 60 Tablet 03/06/20 24 024 Discontinu ed(Reorder (E-cancel not sent)) albuterol HFA (PRO-AIR; VENTOLIN; PROVENTIL) 90 mcg/actuation inhaler Inhale 2 Puffs by mouth every 4 hours if needed for Shortness Of Breath or Wheezing. 03/08/20 24 025 Discontinu ed(*Med complete/R egimen complete/L evel of care change) doxycycline monohydrate 100 mg capsuleIndication s:Sinusitis, unspecified chronicity, unspecified location Take 1 Capsule (100 mg) by mouth two times daily for 2 days. 4 Capsule 03/22/20 24 024 Active Problems Problem Noted Date Diagnosed Date [...] ? RTC PRN. Anxiety 06/27/2020 Overview (07/28/2023): [place] to be hormonal, ?PMDD. Working with therapist [...] Encounters Date Type Department Care Team Description 04/15/2024 Lab Requisition [facility] [phone] Mc Pablo MD 04/06/2024 4:05 PM REGIONAL CLIMATE CHANGE ANALYST Office Visit [facility] [address] [place] [address] Brandy Paz, Pre-Op Exam ([facility] tonsillectomy and deviated septum repair 04/14/24 Dr. Pablo. ) 04/06/2024 Travel 03/30/2024 Telephone [facility] [address] [facility] [place] [phone] Dorothy Rueda, DEIRDRE General Illness/Other 03/22/2024 8:20 AM REGIONAL CLIMATE CHANGE ANALYST Office Visit [facility] [address] [place] [address] Brandy Paz, URI (tested positive for COVID-19 03/01. still having headaches following this as well as post nasal drip ) 03/21/2024 Travel 03/17/2024 8:00 PM REGIONAL CLIMATE CHANGE ANALYST Ancillary Procedure [facility] [address] [place] [phone] 03/17/2024 4:50 PM REGIONAL CLIMATE CHANGE ANALYST Office Visit [facility] [address] [place] [address] Jessie Anglin, DEIRDRE Covid-19 Positive Result (on 03/01 but symptoms have not alleviated, now is having sinus pressure, post nasal drip, green mucus, cough but only to get out the mucus) 03/17/2024 Travel 03/01/2024 5:15 PM REGIONAL CLIMATE CHANGE ANALYST Telemedicine [facility] [address] [place] [phone] Dev Matthews MD Cough 03/01/2024 Travel 03/01/2024 Refill [facility] [address] [place] [address] Brandy Paz DO Refill Request (Eliquis) 02/28/2024 11:30 AM REGIONAL CLIMATE CHANGE ANALYST Phone Office Visit [facility] [address] [place] [phone] Rohini Shepherd MD Follow Up 02/28/2024 Telephone [facility] [address] [place] [address] Brandy Paz DO Medication Management (steriod pain (r) foot) 02/28/2024 Travel 02/25/2024 12:45 PM REGIONAL CLIMATE CHANGE ANALYST Office Visit [facility] [address] [place] [address] Brandy Paz DO Foot Problem (right foot pain for 1 week, has been seen at [facility] for this, gout testing was normal. Would like order for MRI) 02/25/2024 Travel 02/23/2024 Telephone [facility] [address] [place] [address] Brandy Paz, DO Follow Up 02/16/2024 10:25 AM REGIONAL CLIMATE CHANGE ANALYST Office Visit [facility] [address] [place] [address] Brandy Paz, URI (Sinus pain and tenderness, ongoing 3-4 weeks. Tylenol offers some relief and nasacort) 02/16/2024 Travel 02/11/2024 2:50 PM REGIONAL CLIMATE CHANGE ANALYST - 02/11/2024 11:59 PM REGIONAL CLIMATE CHANGE ANALYST Hospital Encounter [facility] [address] [place] [address] Jessie Anglin, DEIRDRE Pain and swelling of right lower leg 02/11/2024 1:45 PM REGIONAL CLIMATE CHANGE ANALYST Office Visit [facility] [address] [place] [phone] Jessie Anglin, DEIRDRE Leg Pain/problem 02/11/2024 Travel 02/01/2024 Telephone [facility] [address] [place] [address] Dorothy Rueda, SPRAYING MACHINE OPERATOR Appointment 01/27/2024 1:10 PM CDT Office Visit [facility] [address] [place] [address] Brandy Paz, DO Weight (Has been working on a plant-based diet and caloric deficit. Feels weight is at a plateau. Would like to talk about other options) 01/26/2024 Travel from Last 3 Months Immunizations Name Administration [...] Date Recorded PHQ-2 TOTAL SCORE 2 11/24/2023 Interpersonal Safety Answer Date Record ed Are you being hit, kicked, p ushed or yelled at (see row info)? No 11/25/2023 Interpersonal Safety Abuse 12 - 18 Not on file 11/25/2023 Interpersonal Safety Ambulatory Vulnerability No t on file 11/25/2023 Comments No Sex and Gender Information Value Date Recorded Sex Assigned at Not on file Legal Sex Female 5:24 PM REGIONAL CLIMATE CHANGE ANALYST Gender Identity Not on file Sexual Orientation Not on file Obstetrics History Para Term AB IAB SAB Ectopic Multiple Livin g Live Births 2 2 2 2 2 Date Outcome GA Total Labor Labor/2nd/3rd Weight Sex Type Anes PTL Layla A1 A5 Name Clin 018 Term F CS-LT ranv Livin g Complications:None,Pre-eclam psia 020 Term 39w 0d 0h 05m 0h 05m 3.57 kg (7 lb 13.9 oz) F CS-Un spec N Livin g 9 9 NORDS TROM, BEYZA WALDEMAR T [address] Tristan MD Complications:None Delivery Location:[facility]) Last Filed Vital Signs Vital Sign Reading Time Taken Comments Blood Pressure 135/79 04/06/2024 4:11 PM REGIONAL CLIMATE CHANGE ANALYST Pulse 67 04/06/2024 4:11 PM REGIONAL CLIMATE CHANGE ANALYST Temperature 36.7 C (98.1 F) 03/22/2024 8:25 AM REGIONAL CLIMATE CHANGE ANALYST Respiratory Rate 18 03/17/2024 5:03 PM REGIONAL CLIMATE CHANGE ANALYST Oxygen Saturation 100% 03/22/2024 8:25 AM REGIONAL CLIMATE CHANGE ANALYST Inhaled Oxygen Concentration - - Weight 129.3 kg (285 lb) 04/06/2024 4:11 PM REGIONAL CLIMATE CHANGE ANALYST Height 171 cm (5' 7.32) 04/06/2024 4:11 PM REGIONAL CLIMATE CHANGE ANALYST Body Mass Index 44.21 04/06/2024 4:11 PM REGIONAL CLIMATE CHANGE ANALYST Plan of Treatment Upcoming Encounters Date Type Department Care Team (Late st Contact Info) Description 05/01/2024 4:30 PM REGIONAL CLIMATE CHANGE ANALYST Office Visit [facility] [address] [place] [address] Brandy Paz, [address] [place] [address] Health Maintenance Due Date Last Done Comments HIV for age 15-65 2006 Hepatitis C screening for ag e 18-79 2009 Pneumococcal series for age 6-49 (1 of 2 - PCV) 2010 Depression screening for age 12+ 11/25/2024 11/26/2023, 11/25/2023, 11/25/2023, Additional history exists BMI (ht and wt on same day) for age 18+ 04/06/2025 04/06/2024, 12/17/2023, 09/27/2023, Additional history exists Pap test for age 21-65 05/06/2026 05/06/2021, 2021 Tetanus booster 01/21/2028 01/20/2018, 01/21/2009 Tdap Completed 01/20/2018, 01/21/2009 Influenza for age 9-49 Completed 4, 12/05/2023, 06/17/2023, Additional history exists COVID-19 vaccine series Completed 01/03/20 24, 06/17/2023, 02/12/2021, Additional history exists Procedures Procedure Name Priority Date/Time Associated Diagnosis Comments LAB TRACKING EVENT Routine 04/14/2024 12 :19 PM REGIONAL CLIMATE CHANGE ANALYST PATH TISSUE EXAM Routine 04/14/2024 12:1 9 PM REGIONAL CLIMATE CHANGE ANALYST CBC WITH AUTO DIFFERENTIAL STAT 03/17/2024 6:01 PM REGIONAL CLIMATE CHANGE ANALYST COVID-19 virus infection CBC WITH AUTO DIFFERENTIAL STAT 03/17/2024 6:01 PM REGIONAL CLIMATE CHANGE ANALYST COVID-19 virus infection XR CHEST 2 VIEWS PA AND LATERAL STAT 03/17/2024 5:43 PM REGIONAL CLIMATE CHANGE ANALYST COVID-19 virus infection US VENOUS LOWER EXTREMITY RIGHT STAT 02/11/2024 3:57 PM REGIONAL CLIMATE CHANGE ANALYST Pain and swelling of right lower leg COVID-19 MOLECULAR Routine 02/11/2024 2: 40 PM REGIONAL CLIMATE CHANGE ANALYST Sore throat STREP A PCR STAT 02/11/2024 2:00 PM REGIONAL CLIMATE CHANGE ANALYST Sore throat THROAT RAPID STREP A WITH REFLEX STAT 02/11/2024 2:00 PM REGIONAL CLIMATE CHANGE ANALYST Sore throat HPV HIGH RISK Routine 05/06/2021 1:28 PM REGIONAL CLIMATE CHANGE ANALYST from Last 3 Months or Most Recently Relevant to Health Maintenance Results * LAB TRACKING EVENT (04/14/2024 12:19 PM REGIONAL CLIMATE CHANGE ANALYST) Other (Other) Client Collect / Unknown 04/14/2024 12:19 PM REGIONAL CLIMATE CHANGE ANALYST 04/15/2024 3:52 AM REGIONAL CLIMATE CHANGE ANALYST Mc Pablo MD LAB BILL ONLY Final Result [facility] [address] [place] [address], [place] * PATH TISSUE EXAM (04/14/2024 12:19 PM REGIONAL CLIMATE CHANGE ANALYST) Case Report Pathology Report Case: [id number] Authorizing Provider: Mc Pablo, Collected: 04/14/2024 1219 Ordering Location[facility] Received: 04/15/2024 1239 Pathologist: Debby Escobedo MD Specimens: A) - Right Tonsil B) - Left Tonsil 04/19/2024 2:31 PM [facility] Final Diagnosis A) TONSIL, RIGHT, TONSILLECTOMY: 1. Reactive lymphoid hyperplasia 2. Negative for atypia and malignancy B) TONSIL, LEFT, TONSILLECTOMY: 1. Reactive lymphoid hyperplasia 2. Negative for atypia and malignancy 04/19/2024 2:31 PM [facility] Clinical Information Chronic tonsillitis 04/19/2024 2:31 PM [facility] Gross Description A) Received in formalin labeled with the patient's name and right tonsil, is a 3.8 x 2.1 x 1.8 cm pink-clay ovoid palatine tonsil. It is partially surfaced by glistening cribriform mucosa. The cut surfaces are pink and rubbery with no masses or lesions identified. A authorization representative section is submitted in one cassette. B) Received in formalin labeled with the patient's name and left tonsil, is a 3.0 x 2.1 x 1.7 cm pink-clay ovoid palatine tonsil. It is partially surfaced by glistening cribriform mucosa. The cut surfaces are pink and rubbery with no masses or lesions identified. A authorization representative section is submitted in one cassette. JKT 04/17/2024 04/19/2024 2:31 PM [facility] Microscopic Description The final diagnosis is based on microscopic examination of appropriate sections of all specimens. 04/19/2024 2:31 PM REGIONAL CLIMATE CHANGE ANALYST [facility] Additional Information Interpreted at [facility] - [address], [place] [address] 04/19/2024 2:31 PM [facility] Other (Right Tonsil) 04/14/2024 12:19 PM REGIONAL CLIMATE CHANGE ANALYST 04/15/2024 12:39 PM REGIONAL CLIMATE CHANGE ANALYST Specimen (specimen) (Left Tonsil) 04/14/2024 12:23 PM REGIONAL CLIMATE CHANGE ANALYST 04/15/2024 12:39 PM REGIONAL CLIMATE CHANGE ANALYST us Mc Pablo MD PATHOLOGY/CYTOLOGY [facility] Result [facility] [address] [place] [address], [place] * (ABNORMAL) CBC WITH AUTO DIFFERENTIAL (03/17/2024 6:01 PM REGIONAL CLIMATE CHANGE ANALYST) WHITE BLOOD COUNT 8.2 4.5 - 11.0 thou/cu mm 03/17/2024 6:11 PM [facility] RED BLOOD COUNT 4.43 4.00 - 5.20 mil/cu mm 03/17/2024 6:11 PM [facility] HEMOGLOBIN 12.9 12.0 - 16.0 g/dL 03/17/2024 6:11 PM [facility] HEMATOCRIT 40.5 33.0 - 51.0 % 03/17/2024 6:11 PM [facility] MCV 91 80 - 100 fL 03/17/2024 6:11 PM [facility] MCH 29.1 26.0 - 34.0 pg 03/17/2024 6:11 PM [facility] MCHC 31.9(L) 32.0 - 36.0 g/dL 03/17/2024 6:11 PM [facility] RDW 13.9 11.5 - 15.5 % 03/17/2024 6:11 PM [facility] PLATELET COUNT 270 140 - 440 thou/cu mm 03/17/2024 6:11 PM [facility] MPV 11.3(H) 6.5 - 11.0 fL 03/17/2024 6:11 PM [facility] % NEUT 58.3 % 03/17/2024 6:11 PM [facility] % LYMPH 31.9 % 03/17/2024 6:11 PM [facility] % MONO 7.4 % 03/17/2024 6:11 PM [facility] % EOS 2.2 % 03/17/2024 6:11 PM [facility] % BASO 0.2 % 03/17/2024 6:11 PM [facility] ABSOLUTE NEUTROPHILS 4.8 1.7 - 7.0 thou/cu mm 03/17/2024 6:11 PM [facility] ABSOLUTE LYMPHOCYTES 2.6 0.9 - 2.9 thou/cu mm 03/17/2024 6:11 PM [facility] ABSOLUTE MONOCYTES 0.6 <0.9 thou/cu mm 03/17/2024 6:11 PM [facility] ABSOLUTE EOSINOPHILS 0.2 <0.5 thou/cu mm 03/17/2024 6:11 PM [facility] ABSOLUTE BASOPHILS 0.0 <0.3 thou/cu mm 03/17/2024 6:11 PM [facility] Blood BLOOD SPECIMEN / Unknown [facility] Collect / Unknown 03/17/2024 6:01 PM REGIONAL CLIMATE CHANGE ANALYST 03/17/2024 6:01 PM REGIONAL CLIMATE CHANGE ANALYST us Jessie Anglin SPRAYING MACHINE OPERATOR HEMATOLOGY Final Res ult [facility] [address] [place] [address] * XR CHEST 2 VIEWS PA AND LATERAL (03/17/2024 5:43 PM REGIONAL CLIMATE CHANGE ANALYST) Anatomical Region Laterality Modality CHEST, THORAX, Lung, HEART Compu yael Radiography 03/17/2024 6:13 PM REGIONAL CLIMATE CHANGE ANALYST Impressions 03/17/2024 6:13 PM REGIONAL CLIMATE CHANGE ANALYST No focal consolidation. Dictated by Jesus Mahmood MD @ 03/17/2024 6:13:32 PM (Electronically Signed) Narrative 03/17/2024 6:13 PM REGIONAL CLIMATE CHANGE ANALYST For Patients: As a result of the Cures Act, medical imaging exams and procedure reports are released immediately into your electronic medical record. You may view this report before your referring provider. If you have questions, please contact your health care provider. INDICATION: COVID infection. TECHNIQUE: Chest 2 view(s) COMPARISON: Chest radiograph dated 11/25/2023. FINDINGS: Cardiomediastinal silhouette and pulmonary vasculature are normal. No focal consolidation. No layering pleural effusion. No pneumothorax. Multilevel degenerative changes of the visualized spine. Procedure Note Jesus Mahmood MD - 03/17/2024 For Patients: As a result of the Cures Act, medical imagingexams and procedure reports are released immediately into your electronicmedical record. You may view this report before your referring provider.If you have questions, please contact your health care provider. INDICATION: COVID infection. TECHNIQUE: Chest 2 view(s) COMPARISON: Chest radiograph dated 11/25/2023. FINDINGS: Cardiomediastinal silhouette and pulmonary vasculature are normal. No focal consolidation. No layering pleural effusion. No pneumothorax. Multilevel degenerative changes of the visualized spine. IMPRESSION: No focal consolidation. Dictated by Jesus Mahmood MD @ 03/17/2024 6:13:32 PM (Electronically Signed) us Jessie Anglin SPRAYING MACHINE OPERATOR GENERAL IMAGING Final Res ult * US VENOUS LOWER EXTREMITY RIGHT (02/11/2024 3:57 PM REGIONAL CLIMATE CHANGE ANALYST) Anatomical Region Laterality Modality LEGS, LEG R, Abdomen Ultrasound 02/11/2024 4:12 PM REGIONAL CLIMATE CHANGE ANALYST Impressions 02/11/2024 4:12 PM REGIONAL CLIMATE CHANGE ANALYST Normal left lower extremity venous ultrasound, no sign of deep venous thrombosis. Dictated by Angel Cota MD @ 02/11/2024 4:12:43 PM (Electronically Signed) Narrative 02/11/2024 4:12 PM REGIONAL CLIMATE CHANGE ANALYST For Patients: As a result of the [...] MD @ 02/11/2024 4:12:43 PM (Electronically Signed) us Jessie Anglin SPRAYING MACHINE OPERATOR US Final Res ult * COVID-19 MOLECULAR (02/11/2024 2:40 PM REGIONAL CLIMATE CHANGE ANALYST) COVID 19 [facility] MOLECULAR Negative Negative 02/12/2024 5:29 PM REGIONAL CLIMATE CHANGE ANALYST [facility] 02/12/2024 5:29 PM REGIONAL CLIMATE CHANGE ANALYST [facility] Comment:Specimen submitted t o [facility] for testing. Other SPECIMEN FROM NASOPHARYNGEAL STRUCTURE / Unknown Non-Blood / Unknown 02/11/2024 2:40 PM REGIONAL CLIMATE CHANGE ANALYST 02/11/2024 3:04 PM REGIONAL CLIMATE CHANGE ANALYST Narrative [facility] - 02/12/2024 5:29 PM REGIONAL CLIMATE CHANGE ANALYST All PCR tests are subject to false negative result due to variability in viral load and collection technique. A negative result does not rule out a SARS-CoV-2 infection. Clinical correlation required. Jessie Anglin SPRAYING MACHINE OPERATOR MICROBIOLOGY Final Res ult Performing Organization Address [facility]/ZIP Co de Phone Number [facility] [address] [address], [place] * STREP A PCR (02/11/2024 2:00 PM REGIONAL CLIMATE CHANGE ANALYST) Pathologist [facility] GROUP A STREP Negative 02/12/2024 2:15 PM REGIONAL CLIMATE CHANGE ANALYST [facility] Throat SPECIMEN FROM THROAT / Unknown Non-Blood / Unknown 02/11/2024 2:00 PM REGIONAL CLIMATE CHANGE ANALYST 02/11/2024 2:42 PM REGIONAL CLIMATE CHANGE ANALYST Fela Raymond NP MICROBIOLOGY Final Result Performing Organization Address [facility]/[place] Co de Phone Number [facility] [address] [address], [place] * THROAT RAPID STREP A WITH REFLEX (02/11/2024 2:00 PM REGIONAL CLIMATE CHANGE ANALYST) STREP A ANTIGEN Negative 02/11/2024 2:42 PM REGIONAL CLIMATE CHANGE ANALYST [facility] Comment:PCR to follow. Throat SPECIMEN FROM THROAT / Unknown Non-Blood / Unknown 02/11/2024 2:00 PM REGIONAL CLIMATE CHANGE ANALYST 02/11/2024 2:20 PM REGIONAL CLIMATE CHANGE ANALYST Fela Raymond NP MICROBIOLOGY Final Result Performing Organization Address [facility]/ZIP Co de Phone Number [facility] [address] [place] [id number] * HPV HIGH RISK (05/06/2021 1:28 PM REGIONAL CLIMATE CHANGE ANALYST) [facility] Signature TYPE 16 Negative Negative 05/08/2021 4:09 PM REGIONAL CLIMATE CHANGE ANALYST [facility] TYPE 18 Negative Negative 05/08/2021 4:09 PM REGIONAL CLIMATE CHANGE ANALYST [facility] OTHER HIGH RISK TYPES Negative Negative 05/08/2021 4:09 PM REGIONAL CLIMATE CHANGE ANALYST [facility] Other (Cervical/Vagina l) 05/06/2021 1:28 PM REGIONAL CLIMATE CHANGE ANALYST 05/07/2021 7:15 AM REGIONAL CLIMATE CHANGE ANALYST Narrative [facility] - 05/08/2021 4:09 PM REGIONAL CLIMATE CHANGE ANALYST HPV types 16, 18, 31, 33, 35, 39, 45, 51, 52, 56, 58, 59, 66 and 68 DNA were undetectable or below the pre-set threshold. Methodology: Mar Pasquale 4800 HPV Test Mahsa Whyte MD MICROBIOLOGY Final Re sult [facility] [address] [place] [address], from Last 3 Months or Most Recently Relevant to Health Maintenance Insurance * Guarantor: [employer] Account Type Relation to Patient Date of Phone Billing Address Personal/Family Self [address] [place] [address] MED[employer] CHOICE Member Subscriber Plan / Payer (Ef fective 2023-Present) Name:[employer] Relation to Subscriber:Spouse Name:WOODY BLOOD Date of :1992 (Home) (Work) Address: [address] [place] [address] Payer ID:[id number] (NAIC) Type:Not on file Address: [address] [address] [place] [address] * Guarantor: [employer]lan [employer] Account Type Relation to Patient Date of Phone Billing Address Retail Self [address] [place] [id number] Care Teams Screen Cleaner Relationship Specialty Start Date End Date Brandy Paz DO [address] [place] [id number] PCP - General Family Practice 11/08/23
--- OUTSIDE RECORDS SUMMARY | 2024-04-21 19:38 | XMS_ITS | Referral Summary ---
Author Organization [place] Address [address] [place] [address] Care Team Providers Care Meeting Coordinator Name Role Phone Ino Monteiro MD Unavailable Brandy Paz DO Primary Care Provider [phone] Shania Matthews JENNIFER SENIOR NET ARCHITECT Unavailable Laurie Larson Unavailable Encounters Date Type Department Care Team Description 03/24/2024 [facility] Medical Advice [address] [phone] Asuncion Amos, RN 03/24/[address] [place] [address] Asuncion Amos, RN 03/21/2024 My[facility] Medical Advice [address] [phone] Laurie Larson PA 02/17/2024 MyC Medical Advice [place] [id number] [address] [phone] Efren Mosley MD 02/11/2024 Travel 02/11/2024 9:45 AM DELI WORKER Lab [facility] [address] [place] [address] [address] [place] [phone] Coronary artery calcification of [place] artery; Elevated LDL cholesterol level 02/08/2024 Travel 02/08/2024 3:30 PM DELI WORKER Office Visit [facility] [address] [facility] [address] [place] [phone] Ino Monteiro MD Omphalitis in adult (Primary Dx) 01/25/2024 Telephone [facility] [address] [place] [phone] Ino Monteiro MD Surgical Followup (Bleeding and smell form umbilical area) from Last 3 Months Allergies Active Allergy [...] Comments Blood Pressure 114/76 02/08/2024 3:29 PM DELI WORKER Pulse 63 02/08/2024 3:29 PM DELI WORKER Temperature 36.2 C (97.1 F) 10/26/2022 2:50 PM CDT Respiratory Rate 16 11/23/2023 1:14 PM CDT Oxygen Saturation 99% 02/08/2024 3:29 PM DELI WORKER Inhaled Oxygen Concentration - - Weight 126.1 kg (278 lb) 02/08/2024 3:29 PM DELI WORKER Height 167.6 cm (5' 6) 02/08/2024 3:29 PM DELI WORKER Body Mass Index 44.87 02/08/2024 3:29 PM DELI WORKER Plan of Treatment Not on file Medical Devices Implanted Type Area Fine Dining Server Device Identifier Shelf Expiration Date Model / Serial / Lot Mesh Ventralight St System 4x6 Ellipse [id number] - [id number] Implanted:Qty: 1 on 10/26/2022 by Ino Monteiro MD at [facility] Mesh N/A: Abdomen CR [employer]DA[employer] [id number] 06/02/2024 [id number] / / [id number] Procedures Procedure Name Priority Date/Time Associated Diagnosis Comments LIPID REFLEX TO DIRECT LDL PANEL Routine 02/11/2024 9:47 AM DELI WORKER Coronary artery calcification of [place] artery Elevated LDL cholesterol level from Last 3 Months Results * (ABNORMAL) Lipid panel reflex to direct LDL Fasting (02/11/2024 9:47 AM DELI WORKER) Cholesterol 108 <200 mg/dL 02/11/2024 5:36 PM DELI WORKER [facility] Triglycerides 100 <150 mg/dL 02/11/2024 5:36 PM DELI WORKER [facility] Direct Measure HDL 36(L) >=50 mg/dL 2023 5:36 PM DELI WORKER [facility] LDL Cholesterol Calculated 52 <100 mg/dL 02/11/2024 5:36 PM DELI WORKER [facility] Non HDL Cholesterol 72 <130 mg/dL 02/11/2024 5:36 PM DELI WORKER [facility] Patient Fasting > 8hrs? Yes 02/11/2024 5:36 PM DELI WORKER [facility] Blood STRUCTURE OF LEFT UPPER LIMB / Unknown Venipuncture / Unknown 02/11/2024 9:47 AM DELI WORKER 02/11/2024 9:51 AM DELI WORKER Narrative [facility] - 02/11/2024 5:36 PM DELI WORKER Cholesterol Desirable: < 200 mg/dL Borderline High: [...] LAB - BLOOD ORDERABLES Final Res ult [facility] [place] [facility] [address] [facility] [address], [address] [place] [address], [facility] Acute Care Lab [address] [facility] (1st floor, no room number) [place] [address] from Last 3 Months Insurance * Guarantor: Reina Blood Account Type Relation to Patient Date of Phone Billing Address Personal/Family Self 1990 none (Work) [address] [place] [address] [employer] CHO[employer] Member Subscriber Plan / Payer (Ef fective 2022-Present) Name:REINA BLOOD Relation to Subscriber:Spouse Name:RITCHIE BLOOD Date of :1992 (Home) Address: [address] [place] [address] Payer ID:[id number] (NAIC) Type:Indemnity Address: [address] [place] [phone] * Guarantor: Reina Blood Account Type Relation to Patient Date of Phone Billing Address Personal/Family Self 1990 [address] [place] [address] MEDICA CHOICE Member Subscriber Plan / Payer (Ef fective 2022-Present) Name:REINA BLOOD Relation to Subscriber:Spouse Name:RITCHIE BLOOD Date of :1992 (Home) Address: [address] [place] [address] Payer ID:[id number] (NAIC) Type:Indemnity Address: [address] [place] [phone] Care Teams Meeting Coordinator Relationship Specialty Start Date End Date Brandy Paz DO [address] [address] PCP - General Family Medicine 11/10/23 Ino Monteiro MD [address] [facility] [address] [place] [address] Assigned Surgical Provider 10/04/21 Shania Matthews, WEB CONTENT DEVELOPER SENIOR NET ARCHITECT [address] [place], [place] [phone] Nurse Practitioner Cardiovascular Disease 11/24/23 Laurie Larson PA [facility] [address] [place] [id number] Assigned Heart and Vascular Provider 12/27/23
--- OUTSIDE RECORDS SUMMARY | 2024-04-21 19:38 | XMS_ITS | Encounter Summary ---
Author Organization [facility] Address [address] [place] [address] Care Team Providers Care Sheet Pile Hammer Operator Name Role Phone Ino Monteiro MD Unavailable [phone] Brandy Paz DO Primary Care Provider [phone] Shania Matthews APRN GLOBAL MOBILITY SPECIALIST Unavailable [phone] Efren Mosley MD Unavailable [phone] Laurie Larson Unavailable Reason for Visit * Reason Onset Date Comments Next Day Appointment 11/10/2023 Dr. Mosley on 11/11/23 at 1:15 P.M. Encounter Details Date Type Department Care Team (Late st Contact Info) Description 11/10/2023 Telephone [facility] [place] [address] [facility] [address] [place] [address] Efren Mosley MD [address] [facility] [address] [place], [place] [address] Next Day Appointment (Dr. Mosley on 11/11/23 [...] on file documented as of this encounter Miscellaneous Notes * Telephone Encounter - Jr. Robin Patel - 11/10/2023 1:11 PM CDT Health Call Center Phone Message May a [...] on filedocumented in this encounter Care Teams Sheet Pile Hammer Operator Relationship Specialty Start Date End Date Brandy Paz DO [facility] [address] [place] [address] PCP - General Family Medicine 11/10/23 Ino Monteiro MD [address] [facility] [address] [place], [place] [address] Assigned Surgical Provider 10/04/21 Shania Matthews APRN CNP [address] [place] [address] Nurse Practitioner Cardiovascular Disease 11/24/23 Efren Mosley MD [address] [address] [place] [address] Assigned Heart and Vascular Provider 11/26/23 12/26/23 Laurie Larson PA [facility] [address] [place] [address] Assigned Heart and Vascular Provider 12/27/23 documented as of this encounter
--- OUTSIDE RECORDS SUMMARY | 2024-04-21 19:38 | XMS_ITS | Encounter Summary ---
Author Organization [facility] Address [address] [place] [address] Care Team Providers Care Staffing Consultant Name Role Phone Ino Monteiro MD Unavailable [phone] Brandy Paz DO Primary Care Provider [phone] Shania Matthews APRN, CNP Unavailable [phone] Laurie Larson Unavailable Encounter Details Date Type Department Care Team (Late st Contact Info) Description 03/24/2024 Telephone [facility] [address] [address] Asuncion Amos RN Social History Tobacco Use [...] Telephone Encounter - Asuncion Amos RN - 03/24/2024 3:25 PM CST Would recommend checking with the person who started the medication. In general, should be okay ifthe DVTs have resolved. Efren Mosley MD Reply received from Dr. Mosley, and I have sent information to [place] via BoxCat message which is her usual preference for communicating. Asuncion Amos RN on 03/24/2024 at 3:25 PM SILK GRADER * Telephone Encounter - Asuncion Amos RN - 03/24/2024 10:43 AM CST Team received BoxCat request from patient: Question for Dr. Mosley about holding Eliquis for 2 weeks is being requested by the ENT surgeon. My ENT surgeon wanted me to check in with you about my coming off eliquis temporarily for two weeks prior to my deviated septum/tonsillectomy surgery April 14. Patient was seen here once by Dr. Mosley in November 2023. CT Calcium Score: 40 Lipid profile 02/11/24 after starting Atorvastatin: LDL 52, total chol 108, Triglycerides 100 Hx of DVT in August 2023, started on Eliquis. Routing to Dr. Mosley. Asuncion Amos RN on 03/24/2024 at 10:48 AM SILK GRADER documented in this encounter Plan of Treatment Not on file documented as of this encounter Visit Diagnoses Not on filedocumented in this encounter Care Teams Staffing Consultant Relationship Specialty Start Date End Date Brandy Paz DO [facility] [address] [place] [address] PCP - General Family Medicine 11/10/23 Ino Monteiro MD [address] [facility] [address] [place], [place] [address] Assigned Surgical Provider 10/04/21 Shania Matthews APRN GAS DISPATCHER [address] [place] [address] Nurse Practitioner Cardiovascular Disease 11/24/23 Laurie Larson PA [facility] [address] [place] [address] Assigned Heart and Vascular Provider 12/27/23 documented as of this encounter
--- OUTSIDE RECORDS SUMMARY | 2024-04-21 19:38 | XMS_ITS | Encounter Summary ---
Author Organization [place] Address [address] [place] [address] Care Team Providers Care Basket Bottom Machine Operator Name Role Phone Ino Monteiro MD Unavailable [phone] Brandy Paz DO Primary Care Provider [phone] Shania Matthews APRN FRONT TENDER Unavailable [phone] Laurie Larson Unavailable Encounter Details Date Type Department Care Team (Late st Contact Info) Description 03/21/2024 [facility] [address] [address] Laurie Larson PA [facility] [address] [place] [address] Social History Tobacco Use Types Packs/Day [...] on filedocumented in this encounter Care Teams Basket Bottom Machine Operator Relationship Specialty Start Date End Date Brandy Paz DO [address] [address] PCP - General Family Medicine 11/10/23 Ino Monteiro MD [address] [facility] [address] [place] [address] Assigned Surgical Provider 10/04/21 Shania Matthews APRN FRONT TENDER [address] [place] [address] Nurse Practitioner Cardiovascular Disease 11/24/23 Laurie Larson PA [facility] [address] [place] [phone] Assigned Heart and Vascular Provider 12/27/23 documented as of this encounter
== END 2024-04-21 21:35 | disposition home or self-care (01) ==
PROVIDERS: Emergency Provider Student in an Organized Health Care Education/Training Program; PCP Family Medicine
DX: M79.604 Pain in right leg (principal)
CPT/HCPCS: 93971; 99283